=== PATIENT | female | born 1950 | race Caucasian/White ===

== ENCOUNTER 2018-01-15 20:35 | Emergency (ER) | payer OTHER, SELFPAY ==
[2018-01-15 20:42] VITALS: BP 133/82; PULSE 91; RESP 18; TEMP 37.3; O2SAT 97
--- NOTE | 2018-01-15 22:46 | DI.US.S_ITS ---
PROCEDURE: US PERIPH VENOUS LOW EXTREM RT INDICATIONS: RIGHT LOWER LEG PAIN TECHNIQUE: Real-time imaging, as well as color and pulse Doppler interrogation, were performed of the lower extremity deep veins from the inguinal ligament to the popliteal fossa. COMPARISON: None. FINDINGS: The deep veins are normally compressible, and free of intraluminal thrombus. Color and pulse Doppler demonstrate normal phasic intraluminal flow. There is normal augmentation response to distal compression maneuver. IMPRESSION: No DVT in the right lower extremity. Dictated by: Beverly Hankins M.D. on 01/16/2018 at 8:36 Approved by: Beverly Hankins M.D. on 01/16/2018 at 8:36
--- NOTE | 2018-01-15 23:50 | ED_ITS ---
HPI - Extremity Problem General Chief complaint: Extremity Problem,Nontraumatic Stated complaint: RIGHT LEG THINKS DEEP VEIN THROMBOSIS Time Seen by Provider: 01/15/18 22:06 History of Present Illness HPI Narrative: HPI 67-year-old female presents for evaluation of mild right anterior medial calf pain that is burning, has intermittent sharp radiating towards great toe complement, and appears to be waxing waning over several days. Patient reports that she spent last week physically active [place] the beach ( involved in some manner of community resource training). Patient denies trauma to her leg, falls, or further injuries. Patient notes normal sensation in her right foot. Patient denies immunocompromise, fevers, chills. Patient is concerned that she may have a DVT presented for further evaluation. ROS with no recent constitutional symptoms. Exam Gen: Pleasant, non-toxic appearing, resting comfortably HEENT: NC, AT, PEERL, EOMI. Resp: Clear to auscultation bilaterally. Unlabored respirations with a normal work of breathing. Card: Regular rate and rhythm. Extremities warm and well perfused. GI: Non-distended. : Deferred MSK/Skin: Right Lower Extremity: Hip with full functional range of motion. No tenderness, swelling, or warmth. Thigh visually normal, soft, and non-tender to palpation. Knee with full functional range of motion, no tenderness to palpation over the patella, fibular head, or joint line. No MCL or LCL tenderness to palpation, negative Sara and posterior drawer test. No swelling , ecchymosis or effusion. No tenderness to palpation on the quadriceps or patellar tendon, both tendons intact on knee extension. Calf without visible or palpable trauma, muscle compartments soft and non-tender to palpation. Weaver test with plantar flexion. No tenderness to palpation over the tibia or fibula. Ankle visually normal without ecchymosis inferior to the lateral malleolus. No tenderness over the posterior lateral malleolus, no tenderness over the posterior medial malleolus. Able to fully dorsiflex, plantarflex, carlyn, and invert the ankle with full functional range of motion . Foot visually normal without tenderness to palpation, specifically including the navicular bone and the base of the 5th metatarsal. Able flex and extend all toes. Muscle compartments of the foot are soft. Neurovascular 2+ DP and PT pulses. Sensation grossly intact to touch on the calf. Sensation intact to touch on all toes, first web space, the medial, lateral, plantar and dorsal surfaces of the foot. Gait - Patient able to take four steps with a non-antalgic gait. Neuro: AO x 3, no facial asymmetry, vision and hearing WNL. Heme/Lymph: Deferred Skin: Normal color with no visible lesions (other than noted above). Psych: Mood and affect appropriate. US DVT: No DVT or other abnormalities appreciated. Radiologist read pending. MDM Previous chart, nursing note, and vitals reviewed. A: 67-year-old female presents for evaluation of mild right anterior medial calf pain that is burning, has intermittent sharp radiating towards great toe complement, and appears to be waxing waning over several days. DDx & Evaluation: patient without evidence of CMS impairment, no evidence of cellulitis, deep space infection, clinically appreciable bony injury based on history and exam. Ultrasound without evidence of DVT. Suspect muscle strain. Patient instructed to use NSAIDs and follow up with PCP. Impression: right calf pain (please reference below for remainder of encounter information) Related Data Home Medications Medication Instructions Recorded Confirmed atorvastatin [Lipitor] 20 mg PO HS #0 09/26/17 hydrocodone-acetaminophen [[place]] 1 tab PO QDAY PRN #0 09/26/17 lithium carbonate 600 mg PO HS #0 09/26/17 omeprazole 20 mg PO BID #0 09/26/17 sumatriptan succinate [Imitrex] 100 mg PO PRN PRN #0 09/26/17 Allergies Allergy/AdvReac Type Severity Reaction Status Date / Time erythromycin base Allergy Severe anaphalaxic Unverified 12/07/17 12:47 [ERYTHROMYCIN BASE] Penicillins [PENICILLINS] Allergy Severe anaphalatic Unverified 12/07/17 12:47 most antibiotics Allergy Unknown Uncoded 12/07/17 12:47 PFSH Surgical History History of splenectomy History of tonsillectomy Status post hysterectomy Family History Father Bipolar affective disorder Stroke Mother Age: 94 Diverticular disease Social History Smoking Status: Never smoker Exam Initial Vital Signs Initial Vital Signs: Vital Signs Temperature 99.1 F 01/15/18 20:42 Pulse Rate 91 H 01/15/18 20:42 Respiratory Rate 18 01/15/18 20:42 Blood Pressure 133/82 H 01/15/18 20:42 Pulse Oximetry 97 01/15/18 20:42 Course Orders Ordered: ED Orders 01/15/18 22:46 periph venous low extrem rt Stat Vital Signs - 8 hr 01/15/18 20:42 Temperature 99.1 F Pulse Rate 91 H Respiratory Rate 18 Blood Pressure 133/82 H Pulse Oximetry 97 Discharge Plan Departure Prescriptions: No Action atorvastatin [Lipitor] 20 MG tablet 20 mg PO HS Qty: 0 RF: 0 lithium carbonate 300 MG tablet 600 mg PO HS Qty: 0 RF: 0 sumatriptan succinate [Imitrex] 100 MG tablet 100 mg PO PRN PRNQty: 0 RF: 0 hydrocodone-acetaminophen [[place]] 5 MG/325 MG tablet 1 tab PO QDAY PRNQty: 0 RF: 0 omeprazole 20 MG capsule,delayed release(DR/EC) 20 mg PO BID Qty: 0 RF: 0
[2018-01-16 00:25] VITALS: BP 130/80; PULSE 92; RESP 16; TEMP 37.1; O2SAT 98
== END 2018-01-16 00:20 | disposition home or self-care (01) ==
PROVIDERS: Emergency Provider Emergency Medicine
DX: M79.661 Pain in right lower leg (principal)
CPT/HCPCS: 93971; 99282; 99284

== ENCOUNTER → 2018-06-15 10:57 | Outpatient (CLI) | payer OTHER, SELFPAY ==
--- NOTE | 2018-06-15 | DI.MG.S_ITS ---
BILATERAL DIGITAL SCREENING MAMMOGRAM 3D/2D WITH CAD: 06/15/2018 CLINICAL: Routine screening. Family history of breast cancer. Comparison is made to exams dated: 12/21/2016 mammogram, 06/26/2015 mammogram, and 05/07/2014 [facility]ogram - [facility]. The tissue of both breasts is heterogeneously dense. This may lower the sensitivity of mammography. Current study was also evaluated with a Computer Aided Detection (CAD) system. No significant masses, calcifications, or other findings are seen in either breast. There has been no significant interval change. IMPRESSION: NEGATIVE There is no mammographic evidence of malignancy. A 1 year screening mammogram is recommended. This exam was interpreted at Station ID: [id number]. NOTE: For mammograms, a report in lay terms will be sent to the patient. Approximately 15% of breast malignancies will not be visualized mammographically. In the management of a palpable breast mass, a negative mammogram must not discourage biopsy of a clinically suspicious lesion. Electronically Signed By: Elysia rizo/dave:06/15/2018 12:17:31 letter sent: Normal Exam ACR BI-RADS Category 1: Negative 3341F
== END ==
PROVIDERS: Visit Provider Family Medicine
DX: Z12.31 Encounter for screening mammogram for malignant neoplasm of breast (principal); Z80.3 Family history of malignant neoplasm of breast
CPT/HCPCS: 77063; 77067

== ENCOUNTER → 2018-06-16 09:33 | Outpatient (CLI) | payer OTHER, SELFPAY ==
--- NOTE | 2018-06-16 09:35 | DI.RAD.S_ITS ---
PROCEDURE: XR WRIST LT MIN 3V INDICATIONS: Left arm pain TECHNIQUE: 4 views of the wrist were acquired. COMPARISON: [facility], CR, XR FOREARM LT 2V, 06/16/2018, 9:14. FINDINGS: Bones: No fractures or dislocations. No suspicious bony lesions. Scaphoid view: No trauma to the scaphoid is found. Soft tissues: No suspicious soft tissue calcifications. IMPRESSION: No wrist fracture found. Mild degenerative change. Please note that elbow plain films today have documented a definite nondisplaced radial head fracture. Dictated by: Murali Ribera M.D. on 06/16/2018 at 11:11 Approved by: Murali Ribera M.D. on 06/16/2018 at 11:12
--- NOTE | 2018-06-16 09:35 | DI.RAD.S_ITS ---
PROCEDURE: XR ELBOW LT MIN 3V INDICATIONS: Left arm pain TECHNIQUE: 3 views of the elbow were acquired. COMPARISON: None. FINDINGS: Bones: No dislocations. No suspicious bony lesions. There is a nondisplaced transverse fracture across the radial head seen on one view only. Soft tissues: Small elbow joint effusion. No suspicious soft tissue calcifications. IMPRESSION: Radial head nondisplaced fracture, crossing the articular surface, seen on one view only. Secondary small to moderate elbow joint effusion faintly seen on the lateral view.. Dictated by: Murali Ribera M.D. on 06/16/2018 at 11:09 Approved by: Murali Ribera M.D. on 06/16/2018 at 11:10
--- NOTE | 2018-06-16 09:35 | DI.RAD.S_ITS ---
PROCEDURE: XR FOREARM RT 2V INDICATIONS: Left arm pain TECHNIQUE: 2 views of the forearm were acquired. COMPARISON: [facility], CR, XR ELBOW LT MIN 3V, 06/16/2018, 9:14. FINDINGS: Bones: No fractures or dislocations can be seen by this study but the elbow plain films have documented a definite nondisplaced intra-articular radial head fracture with secondary joint effusion. No suspicious bony lesions. Soft tissues: No suspicious soft tissue calcifications or masses. There is a elbow joint effusion elevating the anterior and posterior fat pads to a mild degree. IMPRESSION: No fracture through the forearm into the wrist area, but the elbow plain films have documented a definite radial head fracture with secondary posttraumatic effusion at the elbow joint. Dictated by: Murali Ribera M.D. on 06/16/2018 at 11:10 Approved by: Murali Ribera M.D. on 06/16/2018 at 11:11
== END ==
PROVIDERS: PCP Family Medicine; Visit Provider Physician Assistant
DX: M79.602 Pain in left arm (principal)
CPT/HCPCS: 73080; 73090; 73110

== ENCOUNTER → 2018-07-27 08:54 | Outpatient (CLI) | payer OTHER, SELFPAY ==
[2018-07-27 09:43] LABS: Appearance Urine UA CLEAR; Bilirubin Urine UA NEGATIVE (NEGATIVE); Color Urine UA YELLOW; Glucose Urine UA NEGATIVE (Normal); Ketones Urine UA NEGATIVE (NEGATIVE); Leukocyte Esterase Urine UA 2+ (NEGATIVE); Nitrite Urine UA NEGATIVE (Negative); Occult Blood Urine UA NEGATIVE (Negative); Protein Urine UA NEGATIVE (Negative); Specific Gravity Urine UA 1.015 (1.000-1.035); Urobilinogen Urine UA 0.2 E.U./dL (0.2)
[2018-07-27 09:49] LABS: Bacteria Urine None Seen; RBC Urine None Seen (0-5/HPF)
[2018-07-27 09:56] LABS: Add Manual Diff / Slide Review NO; Basophils Percent Auto 0.8 % (0-2); Eosinophils Percent Auto 2.8 % (2-4); Hematocrit 42.1 % (36-46); Hemoglobin 14.5 g/dL (12.0-16.0); Lymphocytes Percent Auto 25.9 % (25-40); Mean Corpuscular HGB Conc 34.4 % (30-36); Mean Corpuscular Hemoglobin 33.3 PG (26-34); Mean Corpuscular Volume 96.8 fL (80-100); Monocytes Percent Auto 6.7 % (3-14); Neutrophils Absolute Auto 5400 /uL (3000-5900); Neutrophils Percent Auto 63.8 % (50-75); Platelet Count 370 X10^3/uL (150-400); Red Blood Cell Count 4.35 X10^6/uL (4.0-5.2); Red Cell Distribution Width 12.7 % (11.6-14.8); White Blood Cell Count 8.4 X10^3/uL (4.5-11.0)
[2018-07-27 10:05] LABS: Culture Indicated Urine Specimen Cultured; Squamous Epithelial Cell Urine 1-5 /HPF; WBC Urine 1-5/HPF (0-5/HPF)
[2018-07-27 10:12] LABS: Lithium 0.7 mmol/L (0.6-1.2)
[2018-07-27 10:45] LABS: Thyroid Stimulating Hormone 2.07 uIU/mL (0.47-4.68)
[2018-07-27 10:46] LABS: Alanine Aminotransferase 60 IU/L (9-52); Albumin 4.2 g/dL (3.5-5.0); Albumin Globulin Ratio 1.6 (1.0-2.8); Alkaline Phosphatase 86 U/L (38-126); Aspartate Aminotransferase 42 IU/L (14-36); Bilirubin Total 0.5 mg/dL (0.2-1.3); Blood Urea Nitrogen 15 mg/dL (7-17); Calcium 9.4 mg/dL (8.4-10.2); Carbon Dioxide 26 mmol/L (22-32); Chloride 106 mmol/L (98-107); Cholesterol 320 mg/dL (140-199); Estimated Glomerular Filt Rate > 60.0 mL/min (>60); Globulin 2.7 g/dL (1.7-4.1); Glucose 92 mg/dL (80-110); HDL Cholesterol 50 mg/dL (40-60); HEMOLYSIS < 15 (0-50); LDL Cholesterol Calculated 237 mg/dL (<100); Sodium 141 mmol/L (137-145); Total Protein 6.9 g/dL (6.3-8.2); Triglycerides 164 mg/dL (35-150)
== END ==
PROVIDERS: PCP Family Medicine; Visit Provider Family Medicine
DX: E78.5 Hyperlipidemia, unspecified (principal); F31.30 Bipolar disorder, current episode depressed, mild or moderate severity, unspecified; Z51.81 Encounter for therapeutic drug level monitoring
CPT/HCPCS: 36415; 80053; 80061; 80178; 81003; 81015; 84443; 85025; 87086

== ENCOUNTER → 2019-02-10 08:48 | Outpatient (CLI) | payer OTHER, SELFPAY ==
--- NOTE | 2019-02-10 08:51 | DI.RAD.S_ITS ---
PROCEDURE: XR HUMERUS RT 2V INDICATIONS: proximal humerous pain after side impact TECHNIQUE: 2 views of the humerus were acquired. COMPARISON: None. FINDINGS: Bones: No fractures or dislocations. No suspicious bony lesions. Soft tissues: No suspicious soft tissue calcifications. IMPRESSION: No acute fracture. No osseous lesion. If symptoms or clinical suspicion for pathology persists, repeat plain films, or advanced imaging (CT, bone scan, or MRI) may be helpful for further assessment. Dictated by: Jose Eden M.D. on 02/10/2019 at 8:04 Approved by: Jose Eden M.D. on 02/10/2019 at 8:05
== END ==
PROVIDERS: PCP Family Medicine; Visit Provider Physician Assistant
DX: M79.601 Pain in right arm (principal)
CPT/HCPCS: 73060

== ENCOUNTER → 2019-02-21 18:03 | Outpatient (CLI) | payer OTHER, SELFPAY ==
--- NOTE | 2019-02-21 18:06 | DI.MRI.S_ITS ---
PROCEDURE: MR SHOULDER RT WO CON INDICATIONS: Pain at tendon insertion site of right small bicep TECHNIQUE: Noncontrast oblique coronal T2 fast spin echo with fat saturation, oblique sagittal T1 spin echo and T2 fast spin echo with fat saturation, axial T1 spin echo and T2 fast spin echo with fat saturation through the shoulder. COMPARISON: [facility], RG, XR SHOULDER 3V RIGHT, 05/25/2016, 10:27. FINDINGS: Image quality: Diagnostic. Rotator cuff: There is moderate thickening and increased signal identified involving the supraspinatus and infraspinatus tendons. There likely is an area of low-grade partial-thickness tearing of the footprint of the anterior distal supraspinatus tendon. No full-thickness tears are appreciated. There is mild increased signal of the subscapularis tendon without significant tearing. The teres minor tendon is intact. There is no significant atrophy of the rotator cuff muscles. Bones and bursae: No acute fracture or dislocation is evident. No suspicious osseous lesions are identified. Moderate degenerative changes of the glenohumeral and acromioclavicular joints are present. There is a moderate amount of fluid contained within the subacromial subdeltoid bursa. Capsule and soft tissues: Evaluation of the labrum and glenohumeral ligaments is suboptimal without intra-articular contrast. Chronic appearing tearing along the posterior labrum appears to be present that is more pronounced superiorly. No detached labral fragment or large paralabral cysts are appreciated. The long head of the biceps tendon is normally positioned within the bicipital groove. There is mild increased signal involving the intra-articular portion of this tendon. No acute injuries are suspected involving the glenohumeral ligaments. IMPRESSION: 1. Low-grade partial-thickness tearing and moderate tendinopathy of the supraspinatus tendon. 2. Moderate infraspinatus and mild subscapularis tendinopathy without significant tearing. 3. Small to moderate size posterior labral tear is likely degenerative. 4. Moderate degenerative changes of the right shoulder joint. 5. Fluid within the subacromial subdeltoid bursa and may represent bursitis. 6. Tendinopathy of the long head of the biceps tendon without tearing. Dictated by: Edgar Rojas M.D. on 02/22/2019 at 13:41 Approved by: Edgar Rojas M.D. on 02/22/2019 at 13:47
== END ==
PROVIDERS: Family Provider Family Medicine; PCP Family Medicine; Visit Provider Registered Nurse
DX: M25.511 Pain in right shoulder (principal); M75.111 Incomplete rotator cuff tear or rupture of right shoulder, not specified as traumatic; S43.491A Other sprain of right shoulder joint, initial encounter; M67.813 Other specified disorders of tendon, right shoulder
CPT/HCPCS: 73221

== ENCOUNTER → 2019-03-16 07:57 | Outpatient (CLI) | payer OTHER, SELFPAY ==
[2019-03-16 08:56] LABS: Hematocrit 44.1 % (36-46); Hemoglobin 14.9 g/dL (12.0-16.0); Mean Corpuscular HGB Conc 33.9 % (30-36); Mean Corpuscular Volume 97.3 fL (80-100); Platelet Count 364 X10^3/uL (150-400); Red Blood Cell Count 4.53 X10^6/uL (4.0-5.2); Red Cell Distribution Width 13.2 % (11.6-14.8); White Blood Cell Count 13.1 X10^3/uL (4.5-11.0)
[2019-03-16 09:08] LABS: Neutrophils Absolute Manual 7991 /uL (3000-5900); RBC Morphology Normal Morphology; Total Cells Counted 100
[2019-03-16 09:16] LABS: Lithium 0.5 mmol/L (0.6-1.2)
[2019-03-16 09:19] LABS: Alanine Aminotransferase 45 IU/L (9-52); Albumin 4.5 g/dL (3.5-5.0); Albumin Globulin Ratio 1.7 (1.0-2.8); Alkaline Phosphatase 86 U/L (38-126); Aspartate Aminotransferase 25 IU/L (14-36); BUN Creatinine Ratio 22.9 (6-22); Bilirubin Total 0.9 mg/dL (0.2-1.3); Blood Urea Nitrogen 16 mg/dL (7-17); Calcium 10.5 mg/dL (8.4-10.2); Carbon Dioxide 26 mmol/L (22-32); Chloride 104 mmol/L (98-107); Estimated Glomerular Filt Rate > 60.0 mL/min (>60); Globulin 2.6 g/dL (1.7-4.1); Glucose 93 mg/dL (80-110); HEMOLYSIS < 15 (0-50); Potassium 4.4 mmol/L (3.4-5.1); Sodium 138 mmol/L (137-145); Total Protein 7.1 g/dL (6.3-8.2)
== END ==
PROVIDERS: PCP Family Medicine; Visit Provider Family Medicine
DX: F31.30 Bipolar disorder, current episode depressed, mild or moderate severity, unspecified (principal); Z51.81 Encounter for therapeutic drug level monitoring
CPT/HCPCS: 36415; 80053; 80178; 85025

== ENCOUNTER → 2019-06-12 13:48 | Outpatient (CLI) | payer OTHER, SELFPAY | PROVIDERS: PCP Family Medicine; Visit Provider Family Medicine | DX: M85.852 Other specified disorders of bone density and structure, left thigh (principal); Z90.722 Acquired absence of ovaries, bilateral; Z78.0 Asymptomatic menopausal state | CPT/HCPCS: 77080 ==

== ENCOUNTER → 2019-07-30 12:02 | Outpatient (CLI) | payer OTHER, SELFPAY ==
--- NOTE | 2019-07-30 12:03 | DI.MG.S_ITS ---
BILATERAL DIGITAL SCREENING MAMMOGRAM 3D/2D WITH CAD: 07/30/2019 CLINICAL: Routine screening. Family history of breast cancer. Comparison is made to exams dated: 12/21/2016 mammogram, 06/26/2015 mammogram - [facility], 06/15/2018 mammogram - [facility], and 05/07/2014 mammogram - [facility]. The tissue of both breasts is heterogeneously dense. This may lower the sensitivity of mammography. Current study was also evaluated with a Computer Aided Detection (CAD) system. There are benign diffuse calcifications in both breasts. No significant masses, calcifications, or other findings are seen in either breast. There has been no significant interval change. IMPRESSION: There is no mammographic evidence of malignancy. A 1 year screening mammogram is recommended. This exam was interpreted at Station ID: [id number]. NOTE: For mammograms, a report in lay terms will be sent to the patient. Approximately 15% of breast malignancies will not be visualized mammographically. In the management of a palpable breast mass, a negative mammogram must not discourage biopsy of a clinically suspicious lesion. Electronically Signed By: Ilan pino/dave:07/30/2019 17:55:44 letter sent: Normal Exam ACR BI-RADS Category 2: Benign Finding(s) 3342F
== END ==
PROVIDERS: PCP Family Medicine; Visit Provider Family Medicine
DX: Z12.31 Encounter for screening mammogram for malignant neoplasm of breast (principal); Z80.3 Family history of malignant neoplasm of breast
CPT/HCPCS: 77063; 77067

== ENCOUNTER → 2020-06-24 07:29 | Outpatient (CLI) | payer OTHER, SELFPAY ==
[2020-06-24 08:20] LABS: Add Manual Diff / Slide Review NO; Basophils Absolute Auto 100 /uL (0-100); Basophils Percent Auto 0.7 % (0-2); Eosinophils Absolute Auto 100 /uL (0-450); Eosinophils Percent Auto 0.9 % (2-4); Hematocrit 41.5 % (36-46); Lymphocytes Absolute Auto 2800 /uL (1100-4500); Lymphocytes Percent Auto 34.4 % (25-40); Mean Corpuscular HGB Conc 33.9 % (30-36); Mean Corpuscular Hemoglobin 33.5 PG (26-34); Mean Corpuscular Volume 98.9 fL (80-100); Monocytes Absolute Auto 600 /uL (0-900); Monocytes Percent Auto 7.5 % (3-14); Neutrophils Absolute Auto 4600 /uL (1500-7000); Neutrophils Percent Auto 56.5 % (50-75); Platelet Count 400 X10^3/uL (150-400); Red Blood Cell Count 4.19 X10^6/uL (4.0-5.2); Red Cell Distribution Width 12.3 % (11.6-14.8); White Blood Cell Count 8.2 X10^3/uL (4.5-11.0)
[2020-06-24 08:31] LABS: Hemoglobin A1C% w Est Avg Glu 5.6 % (4.0-6.0)
[2020-06-24 08:32] LABS: Alanine Aminotransferase 22 IU/L (<35); Albumin 4.2 g/dL (3.5-5.0); Albumin Globulin Ratio 1.3 (1.0-2.8); Alkaline Phosphatase 102 U/L (38-126); Aspartate Aminotransferase 23 IU/L (14-36); BUN Creatinine Ratio 25.8 (6-22); Bilirubin Total 0.5 mg/dL (0.2-1.3); Blood Urea Nitrogen 16 mg/dL (7-17); Calcium 10.2 mg/dL (8.4-10.2); Carbon Dioxide 29 mmol/L (22-32); Chloride 108 mmol/L (98-107); Cholesterol 253 mg/dL (140-199); Estimated Glomerular Filt Rate > 60.0 mL/min (>60); Globulin 3.2 g/dL (1.7-4.1); Glucose 109 mg/dL (80-110); HDL Cholesterol 41 mg/dL (40-60); HEMOLYSIS < 15 (0-50); LDL Cholesterol Calculated 186 mg/dL (<100); Potassium 4.7 mmol/L (3.4-5.1); Sodium 140 mmol/L (137-145); Total Protein 7.4 g/dL (6.3-8.2); Triglycerides 129 mg/dL (35-150)
[2020-06-24 08:57] LABS: Lithium < 0.2 mmol/L (0.6-1.2)
[2020-06-24 09:28] LABS: TSH w/ Reflex to FT4 0.67 uIU/mL (0.47-4.68)
== END ==
PROVIDERS: PCP Family Medicine; Referring Provider Family Medicine; Visit Provider Family Medicine
DX: Z00.00 Encounter for general adult medical examination without abnormal findings (principal); B35.1 Tinea unguium; E78.5 Hyperlipidemia, unspecified; B85.1 Pediculosis due to Pediculus humanus corporis
CPT/HCPCS: 36415; 80053; 80061; 80178; 83036; 84443; 85025

== ENCOUNTER 2020-11-22 07:44 | Emergency (ER) | payer OTHER, SELFPAY ==
[2020-11-22 08:00] VITALS: BP 163/92; PULSE 84; RESP 18; TEMP 36.9; O2SAT 97; BMI 25.4
--- NOTE | 2020-11-22 08:10 | DI.RAD.S_ITS ---
PROCEDURE: XR CHEST 1V INDICATIONS: cough TECHNIQUE: One view of the chest was acquired. COMPARISON: None. FINDINGS: Surgical changes and devices: None. Lungs and pleura: Lungs are clear. No pleural effusions or pneumothorax. Mediastinum: Mediastinal contours appear normal. Heart size is normal. Bones and chest wall: No suspicious bony lesions. Overlying soft tissues appear unremarkable. IMPRESSION: Portable chest within normal limits. Dictated by: Sarkis Rodriguez M.D. on 11/22/2020 at 8:06 Approved by: Sarkis Rodriguez M.D. on 11/22/2020 at 8:06
[2020-11-22 08:20] LABS: COVID19 -Nasal RAPID Negative (Negative)
--- NOTE | 2020-11-22 08:26 | ED_ITS ---
HPI - General Adult General Chief complaint: Shortness of Breath/Dyspnea Stated complaint: bronchitis Time Seen by Provider: 11/22/20 08:10 Source: patient and other (sent from walk-in clinic) Mode of arrival: Family Vehicle Limitations: no limitations History of Present Illness HPI narrative: This is a 70-year-old female who is sent to the emergency department from the walk-in clinic. Patient was seen there approximately a week ago. She has had about 2 weeks of decreased energy, cough which has been nonproductive and elevated temperature. Patient states her normal is 97 and she has been running 99 for her T-max. Patient has not had sweats or diaphoresis. She has had some mild nasal congestion, she denies any significant sinus pressure, ear pain or postnasal drip. Patient states that she recently dev eloped a little chest discomfort in the last 12 hours which has been constant. She denies any exacerbating or specific alleviating factors. She denies any acute shortness of breath. She denies any nausea, no vomiting. No other GI or urinary symptoms. She denies any swelling in her extremities. Patient states that she was seen at the walk-in clinic she was prescribed Levaquin which has not been helpful and she has not improved. She return today for repeat evaluation and was told to come to the emergency department by the ORDER PICKER/ASSEMBLER. Patient does take a daily statin as well as lithium for bipolar. She has history of splenectomy secondary to trauma. She denies tobacco, alcohol or illicit drug use. Patient did complete her COVID immunizations in September. She states she also had antigen test the day before her 2nd vaccine which was negative. Related Data Home Medications Medication Instructions Recorded Confirmed fluticasone propionate 50 1 spray NASAL DAILY 07/04/18 11/18/20 mcg/actuation nasal spray,suspension Previous Rx's Medication Instructions Recorded omeprazole 20 mg capsule,delayed 20 mg PO BID #60 cap 10/11/18 release adjuvant AS01B (PF)vial 1 of 2 0.5 ml IM ONCE #0.5 ml 03/20/19 sumatriptan succinate 100 mg tablet 100 mg PO PRN PRN #9 tab 10/04/19 hydrocodone 5 mg-acetaminophen 325 1 tab PO QDAY PRN #20 tab 11/07/19 mg tablet lithium carbonate 300 mg tablet 600 mg PO HS #180 tab 07/10/20 atorvastatin 40 mg tablet 40 mg PO BEDTIME #90 tab 09/19/20 levofloxacin 750 mg tablet 750 mg PO DAILY 5 Days #5 tab 11/18/20 prednisone 20 mg PO DAILY #5 tab 11/22/20 Allergies Allergy/AdvReac Type Severity Reaction Status Date / Time erythromycin base Allergy Severe anaphalaxic Verified 11/22/20 08:22 [ERYTHROMYCIN BASE] Penicillins [PENICILLINS] Allergy Severe anaphalatic Verified 11/22/20 08:22 latex Allergy Intermediate rash Verified 11/22/20 08:22 most antibiotics Allergy Unknown Uncoded 11/22/20 08:22 Review of Systems Review of Systems ROS Unobtainable: All systems reviewed & are unremarkable except as noted in HPI and below Patient History Medical History Bipolar depression Bipolar disorder (1991) Bipolar disorder, in full remission, most recent episode manic Bronchitis Chickenpox (1951) Chronic back pain (2013) Encounter for Medicare annual wellness exam Fecal incontinence (2014) GERD (gastroesophageal reflux disease) Herpes (1971) History of colon polyps Hyperlipemia Measles (1952) Migraine aura without headache Migraines (1989) Mumps (1953) Peptic ulcer disease (2015) Rosacea (1989) Shoulder pain (2014) Surgical History History of carpal tunnel release (2009) History of splenectomy (1974) History of tonsillectomy (1967) Hx of hernia repair (1977) Status post hysterectomy (2004) Family History Father Bipolar affective disorder Stroke Mother Age: 97 Diverticular disease Grandfather Cancer Grandmother No problems noted. Grandfather Alcoholism Grandmother No problems noted. Sister Non Hodgkin's lymphoma Social History Smoking Status: Never smoker Smoking Status: Never smoker alcohol intake frequency: 0-2 drinks per day Substance Use Type: does not use Exam Narrative Exam Narrative: GEN: well nourished, well appearing female, alert and oriented x 3, patient appears to be in mild distress. HEENT: Atraumatic, pupils are equal round reactive to light, extraocular move ments are intact, nares are clear, TMs are clear with no fluid, there is no conjunctival pallor. Throat has cobblestoning with mild postnasal drip. Without any exudates, no erythema, tonsillar enlargement or uvular deviation HEART: Regular rate and rhythm without murmur, clicks, rubs. LUNGS:Lungs clear to auscultation, no wheezes, rales, crackles, chest moves symmetrically, no tachypnea accessory muscle use. ABD:bowel sounds normal, soft, non-tender, no guarding, rebound, rigidity, no masses noted, no hepatosplenomegaly :No CVA tenderness. MSCL: Full range of motion, normal gait NEURO:CN 2-12 intact, sensation normal SKIN: No rash, erythema or skin changes. Initial Vital Signs Initial Vital Signs: Vital Signs Temperature 98.4 F 11/22/20 08:00 Pulse Rate 84 11/22/20 08:00 Respiratory Rate 18 11/22/20 08:00 Blood Pressure 163/92 H 11/22/20 08:00 Pulse Oximetry 97 11/22/20 08:00 Course Orders Ordered: ED Orders 11/22/20 08:00 COVID19 -Nasal swab/Pre-Proc Stat 11/22/20 08:10 CXR [XR chest 1V] Stat 11/22/20 08:25 EKG-12 Lead Stat Vital Signs Vital signs: Vital Signs - 8 hr 11/22/20 08:00 Temperature 98.4 F Pulse Rate 84 Respiratory Rate 18 Blood Pressure 163/92 H Pulse Oximetry 97 Medical Decision Making Lab Data Lab results reviewed: Yes I reviewed the patient's lab results. Labs: Lab Results 11/22/20 Range/Units 08:00 SARS-CoV-2 (PCR) Negative (Negative) Imaging Data Chest x-ray: Radiologist's Impression: [address] [id number] ReportSigned Patient: Shayy Vaughn GMR#: [id number]: [id number]:[id number]/Sex: 70 / FDate of Service: 11/22/20Loc: EDAccession Number: [id number] Procedure: XR chest 1V Ordering Provider: Carmel Davis D.O. PROCEDURE: XR CHEST 1V INDICATIONS: cough TECHNIQUE: One view of the chest was acquired. COMPARISON: None. FINDINGS: Surgical changes and devices: None. Lungs and pleura: Lungs are clear. No pleural effusions or pneumothorax. Mediastinum: Mediastinal contours appear normal. Heart size is normal. Bones and chest wall: No suspicious bony lesions. Overlying soft tissues appear unremarkable. IMPRESSION: Portable chest within normal limits. Dictated by: Sarkis Rodriguez M.D. on 11/22/2020 at 8:06 Approved by: Sarkis Rodriguez M.D. on 11/22/2020 at 8:06 ECG Data Attestation: I personally reviewed and interpreted this ECG as follows: Interpretation: Sinus rhythm rate of 77 P are 164 QRS of 78 QTC of 407. No acute ST changes appreciated MDM Narrative Medical decision making narrative: This is a 70-year-old female comes to the emergency department with complaint of cough and chest discomfort it has progressed over the last 2 weeks. She was started on oral antibiotics for bronchitis which she has completed without improvement. Discussed with patient she does appear to have some postnasal drip. She has tried a little bit and histamine. We discussed trying a short course of steroids. We did discuss other potential causes although my suspicion for cardiac is much lower with her recent symptoms. We did discuss return precautions and need for follow-up if she is not improving. Plan for short course of steroids with her history of bipolar we did discuss this could exacerbate or worsen any cristal and that she should stop immediately if having any symptoms. Patient expressed understanding and plan for follow-up this week with her primary care. Discharge Plan Departure Patient Disposition: Home Clinical Impression: Cough Instructions: Cough Activity Restrictions/Additional Instructions: Follow up with your physician in the next 2-3 days for recheck if not resolved. I would recommend taking a short course of steroids to see if this improves your symptoms. This medication can make you feel amped up or even exacerbate a manic episode so if you start to have these symptoms stop the steroids immediately. Prescription to [facility]. Please return to the ER if you have temperatures greater 100.4 F, worsening chest pain shortness of breath, lightheadedness or passing out, persistent vomiting, new swelling in her extremities or other new or concerning symptoms. Prescriptions: New prednisone 20 mg tablet 20 mg PO DAILY Qty: 5 RF: 0 No Action levofloxacin 750 mg tablet 750 mg PO DAILY 5 Days Qty: 5 RF: 0 fluticasone propionate [Flonase Allergy Relief] 50 mcg/actuation spray,suspension 1 spray NASAL DAILY RF: 0 omeprazole 20 mg capsule,delayed release(DR/EC) 20 mg PO BID Qty: 60 RF: 3 sumatriptan succinate [Imitrex] 100 mg tablet 100 mg PO PRN PRN (Reason: migraine headache) Qty: 9 RF: 2 lithium carbonate 300 mg tablet 600 mg PO HS Qty: 180 RF: 3 atorvastatin 40 mg tablet 40 mg PO BEDTIME Qty: 90 RF: 2 Shingrix Adjuvant Component-PF suspension 0.5 ml IM ONCE Qty: 0.5 RF: 0 hydrocodone-acetaminophen [[place]] 5-325 mg tablet 1 tab PO QDAY PRN (Reason: migraine headache) Qty: 20 RF: 0 Referrals: Angel Ugalde DO [Primary Care Provider] -
[2020-11-22 10:12] VITALS: BP 161/82; PULSE 81; RESP 13; TEMP 37.1; O2SAT 97
== END 2020-11-22 10:14 | disposition home or self-care (01) ==
PROVIDERS: Emergency Provider Emergency Medicine; PCP Family Medicine
DX: R05 Cough (principal); R07.89 Other chest pain; Z20.822 Contact with and (suspected) exposure to COVID-19
CPT/HCPCS: 71045; 87635; 93005; 99282; 99283; C9803

== ENCOUNTER → 2021-01-09 14:04 | Outpatient (CLI) | payer OTHER, SELFPAY ==
--- NOTE | 2021-01-09 14:07 | DI.RAD.S_ITS ---
PROCEDURE: XR HIP W PEL IF DONE LT 2V INDICATIONS: left hip pain TECHNIQUE: AP pelvis with lateral view(s) of the left hip(s). COMPARISON: None. FINDINGS: Bones: No fractures or dislocations. Pelvic ring appears intact. No suspicious bony lesions. Soft tissues: The visualized bowel gas pattern is normal. No suspicious soft tissue calcifications. IMPRESSION: No source of asymmetric left-sided hip pain is found. Dictated by: Murali Ribera M.D. on 01/09/2021 at 15:25 Approved by: Murali Ribera M.D. on 01/09/2021 at 15:25
[2021-01-09 16:48] LABS: Lithium 0.5 mmol/L (0.6-1.2)
== END ==
PROVIDERS: PCP Family Medicine; Referring Provider Psychiatry & Neurology Psychiatry; Visit Provider Psychiatry & Neurology Psychiatry
DX: M25.552 Pain in left hip (principal); F31.74 Bipolar disorder, in full remission, most recent episode manic
CPT/HCPCS: 36415; 73502; 80178

== ENCOUNTER 2021-02-11 14:55 | Outpatient (RCR) | payer OTHER, SELFPAY ==
--- NOTE | 2021-02-11 16:46 | PT.OIE ---
Current Diagnoses Pain in left hip (02/11/21) Past Medical History (Last Updated 01/13/21 @ 11:49 by Angel Ugalde DO) Bipolar depression Bipolar disorder (1991) Bipolar disorder, in full remission, most recent episode manic Bronchitis Chickenpox (1951) Chronic back pain (2013) Encounter for Medicare annual wellness exam Fecal incontinence (2014) GERD (gastroesophageal reflux disease) Herpes (1971) Hip pain, left History of carpal tunnel release (2009) History of colon polyps Hx of hernia repair (1977) Hyperlipemia Measles (1952) Migraine aura without headache Migraines (1989) Mumps (1953) Peptic ulcer disease (2015) Rosacea (1989) Shoulder pain (2014) Past Surgical History (Last Reviewed 11/22/20 @ 08:29 by Carmel Davis DO) History of carpal tunnel release (2009) History of splenectomy (1974) History of tonsillectomy (1967) Hx of hernia repair (1977) Status post hysterectomy (2004) Visit Care Team Role Provider Type Angel Ugalde DO Attending Provider Physician Primary Care Provider Referring Provider Specialty: [facility] Address: [address] [place] [address] Email: [email or web address] Physical Therapy Initial Evaluation PT-OP-A Visit Information Start: 02/11/21 16:10 Freq: Status: Active Protocol: Document 02/11/21 19:00 (Rec: 02/12/21 13:25 [email or web address]) Out-Patient Physical Therapy Visit Information Visit Information Visit Type Initial Evaluation Visit Start Time 15:15 Visit Stop Time 16:00 Total Visit Minutes 45 Visit Number 09/12 Number of SALES AND MARKETING INTERN Visits 0 Evaluation Information Evaluation Date 02/11/21 Precautions Precautions latex allergy PT-OP-B Current Condition Start: 02/11/21 16:10 Freq: Status: Active Protocol: Document 02/11/21 19:00 HH (Rec: 02/12/21 13:25 [email or web address]) Current Condition History of Current Condition Onset Date 8 months ago Current Complaints L hip pain after a fall, difficulty during sleep History of Current Condition Shayy is a 70 yo active female here for her ongoing L SIJ pain after a fall from 8 months ago. She fell on her L lower back after her hammock broken off from the tree. She stated she was hurting badly for the first few weeks with difficulty mobilizing. Sleeping hurts the worse since she cant sleep on her L side and has to take Advil and Tylenol to help. Denies tingling/ numbness. Her L leg did give out on her a few times. However, her mobility has been progressively getting better but pain 7/10 still persists. She normally likes to walk 2-3 walks a day on uneven surface. She carries wood/ water / groceries often since she lives [facility] by herself. Prior Treatments and Tests 01/09/21 X-ray at L hip IMPRESSION: No source of asymmetric left-sided hip pain is found. Treatment Goals Patient/Caregiver Goals 1. to be able to sleep on her L side again 2. to be pain free with L hip/ low back PT-OP-C Subjective Start: 02/11/21 16:10 Freq: Status: Active Protocol: Document 02/11/21 19:00 HH (Rec: 02/12/21 13:25 [email or web address]) Patient Questionnaires Lower Extremity Functional Scale LEFS Score 36 LEFS Impairment 40 to 59% Impaired (Score 32- 47) OP-PT Pain Assessment Location L hip Pain Location Details L SIJ region Intensity 7 Description Aching,Dull Frequency Frequent Pain Aggravating Factors Position,ADL's,Activity Pain Alleviating Factors Inactivity PT-OP-D Balance Start: 02/11/21 16:10 Freq: Status: Active Protocol: Document 02/11/21 19:00 HH (Rec: 02/12/21 13:25 [email or web address]) Balance Tests Single Limb Standing Single Limb- Right 27 Single Limb- Left 7 (pain noted at L SIJ) PT-OP-F Manual Assessment Start: 02/11/21 16:10 Freq: Status: Active Protocol: Document 02/11/21 19:00 HH (Rec: 02/12/21 13:25 [email or web address]) Manual Assessments Soft Tissue Assessment Soft Tissue Mobility Assessment painful to pressure at L SIJ region PT-OP-H Neuro Start: 02/11/21 16:10 Freq: Status: Active Protocol: Document 02/11/21 19:00 HH (Rec: 02/12/21 13:25 [email or web address]) Sensation Evaluation Gross Sensation Gross Sensation WNL Deep Tendon Reflex & Clonus Assessment Deep Tendon Reflex Bilateral Achilles Deep Tendon Reflex 2+ Normal Bilateral Patellar Deep Tendon Reflex 2+ Normal PT-OP-K Range of Motion Start: 02/11/21 16:10 Freq: Status: Active Protocol: Document 02/11/21 19:00 (Rec: 02/12/21 13:25 [email or web address]) Lumbar Spine Range of Motion Lumbar Spine Active Degrees Comments toe touch test= hands on floor , no discomfort SB to R= stretch at L lumbar region SB to L= painful at L SIJ extension = WFL Hip Goniometric Range of Motion Hip Right Active Comments WFL, no increase in discomfort Left Active Comments WFL, no increase in discomfort pain at L SIJ with active hip extension PT-OP-L Special Tests Start: 02/11/21 16:10 Freq: Status: Active Protocol: Document 02/11/21 19:00 HH (Rec: 02/12/21 13:25 [email or web address]) Special Tests Lumbar Spine Special Tests Prone Instability Test Comments pain at LSIJ with active hip extension Slump Test Results -ve B Straight Leg Raise Test Results -ve B PT-OP-M Strength Start: 02/11/21 16:10 Freq: Status: Active Protocol: Document 02/11/21 19:00 (Rec: 02/12/21 13:25 [email or web address]) Hip Strength Hip Manual Muscle Testing Right Flexion (L2) 5 Normal Extension (S1) 5 Normal Abduction 5 Normal Adduction 5 Normal Left Flexion (L2) 5 Normal Extension (S1) 4- Good- Abduction 5 Normal Adduction 5 Normal Comments pain at LSIJ with active hip extension Knee Strength Knee Manual Muscle Testing Right Flexion (S2) 5 Normal Extension (L3) 5 Normal Left Flexion (S2) 5 Normal Extension (L3) 5 Normal Ankle/Foot Strength Ankle and Foot Manual Muscle Testing Right Dorsiflexion (L4) 5 Normal Plantarflexion (S1) 5 Normal Left Dorsiflexion (L4) 5 Normal Plantarflexion (S1) 5 Normal PT-OP-Q Treatments Start: 02/11/21 16:10 Freq: Status: Active Protocol: Document 02/11/21 19:00 (Rec: 02/12/21 13:25 [email or web address]) Therapeutic Exercises Supine Exercises bridging Side bilateral Reps/Minutes 5 sec hold at top x 5 Comments for HEP Sidelying Exercises clamshell Side bilateral Reps/Minutes 8x2 Comments for HEP open book Reps/Minutes 8 x2 Comments for HEP Standing Exercises monster walk Side bilateral Equipment Used band at knees Reps/Minutes 10 ft x 2 Comments cues on neutral spine PT-OP-T Assessment and Plan Start: 02/11/21 16:10 Freq: Status: Active Protocol: Document 02/11/21 19:00 (Rec: 02/12/21 13:25 [email or web address]) Physical Therapy Assessment Rehab Potential Rehabilitation Potential Excellent Evaluation Complexity Number of Personal Factors/Comorbidities 1-2 Number of Body Systems Impaired 1-2 Clinical Presentation at Evaluation Stable Impairments Impairments Activity Tolerance,Balance, Functional Activities, Functional Mobility,Gait,Pain, Posture,ROM,Soft Tissue Mobility,Strength,Transfers Goals activity tolerance Impairment pt has pain in WB position Short Term Goal (STG) pt will be able to complete her daily walk without pain more than 3/10 STG Duration 4 weeks Pony Cylinder Press Operator Goal (LTG) pt will be able to tolerate carrying groceries/ wood/ water without increase in discomfort LTG Duration 8 weeks LEFS Impairment pt scores 36 on LEFS Short Term Goal (STG) pt will score > 50 on LEFS to show improved overall mobility and strength STG Duration 4 weeks Pony Cylinder Press Operator Goal (LTG) pt will score > 60 on LEFS to show improved overall mobility and strength LTG Duration 8 weeks sleep Impairment pt has difficulty sleeping on her L side Short Term Goal (STG) pt will have less L hip /SIJ pain <5/10 so she can tolerate sleeping on her L side > 3 days a week STG Duration 4 weeks Long-Term Goal (LTG) pt will have no L hip /SIJ pain so she can tolerate sleeping on her L side for the entire week LTG Duration 8 weeks Assessment Summary Assessment Shayy is a 70 yo active female here for her L SIJ/hip pain after a fall 8 months ago. Upon assessment, pt presents signs of L SIJ strain/ instability who has pain with active hip extension and prolonged WB. Her ROM/ strength are WFL but single leg balance on L is significantly affected. Pt will benefit from skilled therapy to improve her L SIJ stability by focusing on core stabilization and hip strengthening, which allows her to fully return to her daily activtiies without discomfort. Physical Therapy Plan Frequency and Duration Frequency of Treatment 1x/Week Duration of Treatment 8 weeks Plan of Care Start Date 02/11/21 Plan of Care End Date 04/13/21 Therapeutic Interventions Therapeutic Interventions Aquatic Therapy,Balance Training,Gait Training,Home Exercise Program,Joint Mobilizations,Neuromuscular Re -education,Patient/Caregiver Education,Self-Care/Home Management,Soft Tissue Mobilization,Taping, Therapeutic Activities, Therapeutic Exercises Modalities Cold Pack/Ice Massage,Electric Stimulation,Hot Packs, Infrared Therapy,Traction- Mechanical,Ultrasound Next Visit Focus/Plan Next Note Type Treatment Note Next Visit Plan review HEP core stabilization hip strengthening, hip abd, extension in WB position SL balance activities.
--- NOTE | 2021-02-11 17:00 | PT.OPPOC ---
Physical, Occupational & Speech Therapy At [facility] Current Diagnoses Pain in left hip (02/11/21) Visit Care Team Role Provider Type Angel Ugalde DO Attending Provider Physician Primary Care Provider Referring Provider Specialty: Family Practice Address: [address] [place] [address], [address] Email: [email or web address] Plan Of Care PT-OP-T Assessment and Plan Start: 02/11/21 16:10 Freq: Status: Active Protocol: Document 02/11/21 19:00 HH (Rec: 02/12/21 13:25 HH [email or web address]) Physical Therapy Assessment Rehab Potential Rehabilitation Potential Excellent Evaluation Complexity Number of Personal Factors/Comorbidities 1-2 Number of Body Systems Impaired 1-2 Clinical Presentation at Evaluation Stable Impairments Impairments Activity Tolerance,Balance, Functional Activities, Functional Mobility,Gait,Pain, Posture,ROM,Soft Tissue Mobility,Strength,Transfers Goals activity tolerance Impairment pt has pain in WB position Short Term Goal (STG) pt will be able to complete her daily walk without pain more than 3/10 STG Duration 4 weeks [facility] Goal (LTG) pt will be able to tolerate carrying groceries/ wood/ water without increase in discomfort LTG Duration 8 weeks LEFS Impairment pt scores 36 on LEFS Short Term Goal (STG) pt will score > 50 on LEFS to show improved overall mobility and strength STG Duration 4 weeks Senior Patient Account Representative Goal (LTG) pt will score > 60 on LEFS to show improved overall mobility and strength LTG Duration 8 weeks sleep Impairment pt has difficulty sleeping on her L side Short Term Goal (STG) pt will have less L hip /SIJ pain <5/10 so she can tolerate sleeping on her L side > 3 days a week STG Duration 4 weeks Senior Patient Account Representative Goal (LTG) pt will have no L hip /SIJ pain so she can tolerate sleeping on her L side for the entire week LTG Duration 8 weeks Assessment Summary Assessment Shayy is a 70 yo active female here for her L SIJ/hip pain after a fall 8 months ago. Upon assessment, pt presents signs of L SIJ strain/ instability who has pain with active hip extension and prolonged WB. Her ROM/ strength are WFL but single leg balance on L is significantly affected. Pt will benefit from skilled therapy to improve her L SIJ stability by focusing on core stabilization and hip strengthening, which allows her to fully return to her daily activtiies without discomfort. Physical Therapy Plan Frequency and Duration Frequency of Treatment 1x/Week Duration of Treatment 8 weeks Plan of Care Start Date 02/11/21 Plan of Care End Date 04/13/21 Therapeutic Interventions Therapeutic Interventions Aquatic Therapy,Balance Training,Gait Training,Home Exercise Program,Joint Mobilizations,Neuromuscular Re -education,Patient/Caregiver Education,Self-Care/Home Management,Soft Tissue Mobilization,Taping, Therapeutic Activities, Therapeutic Exercises Modalities Cold Pack/Ice Massage,Electric Stimulation,Hot Packs, Infrared Therapy,Traction- Mechanical,Ultrasound Next Visit Focus/Plan Next Note Type Treatment Note Next Visit Plan review HEP core stabilization hip strengthening, hip abd, extension in WB position SL balance activities. Plan of Care Dates Plan of Care Start Date 02/11/21 Plan of Care End Date 04/13/21 Electronically Signed by: Samia Landin PT 02/12/21 [id number] Please Sign and Return: I have reviewed this Plan of Care and certify that the skilled therapy services above are required to meet the patient?s needs. Physician Signature Date Printed Name and Credentials Clinical Instructor Signature Printed Name and Credentials
--- NOTE | 2021-02-11 17:00 | PT.OTN ---
Current Diagnoses Pain in left hip (02/11/21) Physical Therapy Treatment Note PT-OP-A Visit Information Start: 02/11/21 16:10 Freq: Status: Active Protocol: Document 02/11/21 19:00 (Rec: 02/12/21 13:25 [email or web address]) Out-Patient Physical Therapy Visit Information Visit Information Visit Type Initial Evaluation Visit Start Time 15:15 Visit Stop Time 16:00 Total Visit Minutes 45 Visit Number 09/12 Number of FACE MAN Visits 0 Evaluation Information Evaluation Date 02/11/21 Precautions Precautions latex allergy PT-OP-B Current Condition Start: 02/11/21 16:10 Freq: Status: Active Protocol: Document 02/11/21 19:00 (Rec: 02/12/21 13:25 [email or web address]) Current Condition History of Current Condition Onset Date 8 months ago Current Complaints L hip pain after a fall, difficulty during sleep History of Current Condition Shayy is a 70 yo active female here for her ongoing L SIJ pain after a fall from 8 months ago. She fell on her L lower back after her hammock broken off from the tree. She stated she was hurting badly for the first few weeks with difficulty mobilizing. Sleeping hurts the worse since she cant sleep on her L side and has to take Advil and Tylenol to help. Denies tingling/ numbness. Her L leg did give out on her a few times. However, her mobility has been progressively getting better but pain 7/10 still persists. She normally likes to walk 2-3 walks a day on uneven surface. She carries wood/ water / groceries often since she lives [facility] by herself. Prior Treatments and Tests 01/09/21 X-ray at L hip IMPRESSION: No source of asymmetric left-sided hip pain is found. Treatment Goals Patient/Caregiver Goals 1. to be able to sleep on her L side again 2. to be pain free with L hip/ low back PT-OP-C Subjective Start: 02/11/21 16:10 Freq: Status: Active Protocol: Document 02/11/21 19:00 (Rec: 02/12/21 13:25 [email or web address]) Patient Questionnaires Lower Extremity Functional Scale LEFS Score 36 LEFS Impairment 40 to 59% Impaired (Score 32- 47) OP-PT Pain Assessment Location L hip Pain Location Details L SIJ region Intensity 7 Description Aching,Dull Frequency Frequent Pain Aggravating Factors Position,ADL's,Activity Pain Alleviating Factors Inactivity PT-OP-D Balance Start: 02/11/21 16:10 Freq: Status: Active Protocol: Document 02/11/21 19:00 HH (Rec: 02/12/21 13:25 [email or web address]) Balance Tests Single Limb Standing Single Limb- Right 27 Single Limb- Left 7 (pain noted at L SIJ) PT-OP-F Manual Assessment Start: 02/11/21 16:10 Freq: Status: Active Protocol: Document 02/11/21 19:00 HH (Rec: 02/12/21 13:25 [email or web address]) Manual Assessments Soft Tissue Assessment Soft Tissue Mobility Assessment painful to pressure at L SIJ region PT-OP-H Neuro Start: 02/11/21 16:10 Freq: Status: Active Protocol: Document 02/11/21 19:00 HH (Rec: 02/12/21 13:25 [email or web address]) Sensation Evaluation Gross Sensation Gross Sensation WNL Deep Tendon Reflex & Clonus Assessment Deep Tendon Reflex Bilateral Achilles Deep Tendon Reflex 2+ Normal Bilateral Patellar Deep Tendon Reflex 2+ Normal PT-OP-K Range of Motion Start: 02/11/21 16:10 Freq: Status: Active Protocol: Document 02/11/21 19:00 HH (Rec: 02/12/21 13:25 [email or web address]) Lumbar Spine Range of Motion Lumbar Spine Active Degrees Comments toe touch test= hands on floor , no discomfort SB to R= stretch at L lumbar region SB to L= painful at L SIJ extension = WFL Hip Goniometric Range of Motion Hip Right Active Comments WFL, no increase in discomfort Left Active Comments WFL, no increase in discomfort pain at L SIJ with active hip extension PT-OP-L Special Tests Start: 02/11/21 16:10 Freq: Status: Active Protocol: Document 02/11/21 19:00 HH (Rec: 02/12/21 13:25 [email or web address]) Special Tests Lumbar Spine Special Tests Prone Instability Test Comments pain at LSIJ with active hip extension Slump Test Results -ve B Straight Leg Raise Test Results -ve B PT-OP-M Strength Start: 02/11/21 16:10 Freq: Status: Active Protocol: Document 02/11/21 19:00 HH (Rec: 06/17/21 13:25 [email or web address]) Hip Strength Hip Manual Muscle Testing Right Flexion (L2) 5 Normal Extension (S1) 5 Normal Abduction 5 Normal Adduction 5 Normal Left Flexion (L2) 5 Normal Extension (S1) 4- Good- Abduction 5 Normal Adduction 5 Normal Comments pain at LSIJ with active hip extension Knee Strength Knee Manual Muscle Testing Right Flexion (S2) 5 Normal Extension (L3) 5 Normal Left Flexion (S2) 5 Normal Extension (L3) 5 Normal Ankle/Foot Strength Ankle and Foot Manual Muscle Testing Right Dorsiflexion (L4) 5 Normal Plantarflexion (S1) 5 Normal Left Dorsiflexion (L4) 5 Normal Plantarflexion (S1) 5 Normal PT-OP-Q Treatments Start: 02/11/21 16:10 Freq: Status: Active Protocol: Document 02/11/21 19:00 (Rec: 02/12/21 13:25 [email or web address]) Therapeutic Exercises Supine Exercises bridging Side bilateral Reps/Minutes 5 sec hold at top x 5 Comments for HEP Sidelying Exercises clamshell Side bilateral Reps/Minutes 8x2 Comments for HEP open book Reps/Minutes 8 x2 Comments for HEP Standing Exercises monster walk Side bilateral Equipment Used band at knees Reps/Minutes 10 ft x 2 Comments cues on neutral spine PT-OP-T Assessment and Plan Start: 02/11/21 16:10 Freq: Status: Active Protocol: Document 02/11/21 19:00 (Rec: 02/12/21 13:25 [email or web address]) Physical Therapy Assessment Rehab Potential Rehabilitation Potential Excellent Evaluation Complexity Number of Personal Factors/Comorbidities 1-2 Number of Body Systems Impaired 1-2 Clinical Presentation at Evaluation Stable Impairments Impairments Activity Tolerance,Balance, Functional Activities, Functional Mobility,Gait,Pain, Posture,ROM,Soft Tissue Mobility,Strength,Transfers Goals activity tolerance Impairment pt has pain in WB position Short Term Goal (STG) pt will be able to complete her daily walk without pain more than 3/10 STG Duration 4 weeks Intermediate Goal (LTG) pt will be able to tolerate carrying groceries/ wood/ water without increase in discomfort LTG Duration 8 weeks LEFS Impairment pt scores 36 on LEFS Short Term Goal (STG) pt will score > 50 on LEFS to show improved overall mobility and strength STG Duration 4 weeks Rug Receiving Clerk Goal (LTG) pt will score > 60 on LEFS to show improved overall mobility and strength LTG Duration 8 weeks sleep Impairment pt has difficulty sleeping on her L side Short Term Goal (STG) pt will have less L hip /SIJ pain <5/10 so she can tolerate sleeping on her L side > 3 days a week STG Duration 4 weeks Intermediate Goal (LTG) pt will have no L hip /SIJ pain so she can tolerate sleeping on her L side for the entire week LTG Duration 8 weeks Assessment Summary Assessment Shayy is a 70 yo active female here for her L SIJ/hip pain after a fall 8 months ago. Upon assessment, pt presents signs of L SIJ strain/ instability who has pain with active hip extension and prolonged WB. Her ROM/ strength are WFL but single leg balance on L is significantly affected. Pt will benefit from skilled therapy to improve her L SIJ stability by focusing on core stabilization and hip strengthening, which allows her to fully return to her daily activtiies without discomfort. Physical Therapy Plan Frequency and Duration Frequency of Treatment 1x/Week Duration of Treatment 8 weeks Plan of Care Start Date 02/11/21 Plan of Care End Date 04/13/21 Therapeutic Interventions Therapeutic Interventions Aquatic Therapy,Balance Training,Gait Training,Home Exercise Program,Joint Mobilizations,Neuromuscular Re -education,Patient/Caregiver Education,Self-Care/Home Management,Soft Tissue Mobilization,Taping, Therapeutic Activities, Therapeutic Exercises Modalities Cold Pack/Ice Massage,Electric Stimulation,Hot Packs, Infrared Therapy,Traction- Mechanical,Ultrasound Next Visit Focus/Plan Next Note Type Treatment Note Next Visit Plan review HEP core stabilization hip strengthening, hip abd, extension in WB position SL balance activities.
--- NOTE | 2021-04-23 13:26 | PT.OPDS ---
Current Diagnoses Pain in left hip (02/11/21) Visit Care Team Role Provider Type Angel Ugalde DO Attending Provider Physician Primary Care Provider Referring Provider Specialty: [facility] Address: [address] [place] [address], [facility] Email: [email or web address] Visit Number Visit Number 09/12 Discharge Summary PT-OP-T Assessment and Plan Start: 02/11/21 16:10 Freq: Status: Active Protocol: Document 04/23/21 13:26 (Rec: 04/23/21 13:26 [email or web address]) Physical Therapy Plan Discharge Physical Therapy Discharge Reasons No Longer Attending PT Discharge Comments pt is no longer attending PT since evaluation. OSIEL frmo PT today
== END 2021-04-23 14:52 | disposition home or self-care (01) ==
LOC: PHYS 14:55
PROVIDERS: PCP Family Medicine; Referring Provider Family Medicine; Visit Provider Family Medicine
DX: M25.552 Pain in left hip (principal)
CPT/HCPCS: 97110; 97161

== ENCOUNTER → 2021-06-27 14:06 | Outpatient (CLI) | payer OTHER, SELFPAY ==
--- NOTE | 2021-06-27 14:08 | DI.MG.S_ITS ---
BILATERAL DIGITAL SCREENING MAMMOGRAM 3D/2D WITH CAD: 06/27/2021 CLINICAL: Routine screening. Family history of breast cancer. Comparison is made to exams dated: 07/30/2019 mammogram, 06/15/2018 mammogram - [facility], and 12/21/2016 mammogram - [facility]. The tissue of both breasts is heterogeneously dense. This may lower the sensitivity of mammography. Current study was also evaluated with a Computer Aided Detection (CAD) system. There are benign diffuse calcifications in both breasts. No significant masses, calcifications, or other findings are seen in either breast. There has been no significant interval change. IMPRESSION: BENIGN There is no mammographic evidence of malignancy. A 1 year screening mammogram is recommended. This exam was interpreted at Station ID: [id number]. NOTE: For mammograms, a report in lay terms will be sent to the patient. Approximately 15% of breast malignancies will not be visualized mammographically. In the management of a palpable breast mass, a negative mammogram must not discourage biopsy of a clinically suspicious lesion. Electronically Signed By: Gary ojeda/dave:06/29/2021 09:51:19 letter sent: Normal Exam ACR BI-RADS Category 2: Benign Finding(s) 3342F
== END ==
PROVIDERS: PCP Family Medicine; Referring Provider Family Medicine; Visit Provider Family Medicine
DX: Z12.31 Encounter for screening mammogram for malignant neoplasm of breast (principal); Z80.3 Family history of malignant neoplasm of breast
CPT/HCPCS: 77063; 77067

== ENCOUNTER → 2021-07-14 11:22 | Outpatient (CLI) | payer OTHER, SELFPAY ==
[2021-07-14 12:31] LABS: Add Manual Diff / Slide Review NO; Basophils Absolute Auto 100 /uL (0-100); Basophils Percent Auto 0.6 % (0-2); Eosinophils Absolute Auto 0 /uL (0-450); Eosinophils Percent Auto 0.4 % (2-4); Lymphocytes Absolute Auto 2200 /uL (1100-4500); Lymphocytes Percent Auto 23.6 % (25-40); Mean Corpuscular HGB Conc 34.1 % (30-36); Mean Corpuscular Hemoglobin 32.9 PG (26-34); Mean Corpuscular Volume 96.4 fL (80-100); Monocytes Absolute Auto 500 /uL (0-900); Monocytes Percent Auto 5.3 % (3-14); Neutrophils Absolute Auto 6500 /uL (1500-7000); Neutrophils Percent Auto 70.1 % (50-75); Platelet Count 345 X10^3/uL (150-400); Red Blood Cell Count 4.26 X10^6/uL (4.0-5.2); Red Cell Distribution Width 12.7 % (11.6-14.8); White Blood Cell Count 9.2 X10^3/uL (4.5-11.0)
[2021-07-14 13:11] LABS: Alanine Aminotransferase 37 IU/L (<35); Albumin 4.4 g/dL (3.5-5.0); Albumin Globulin Ratio 1.8 (1.0-2.8); Alkaline Phosphatase 104 U/L (38-126); Aspartate Aminotransferase 34 IU/L (14-36); BUN Creatinine Ratio 21.2 (6-22); Bilirubin Total 0.6 mg/dL (0.2-1.3); Blood Urea Nitrogen 14 mg/dL (7-17); Calcium 10.1 mg/dL (8.4-10.2); Carbon Dioxide 26 mmol/L (22-32); Chloride 105 mmol/L (98-107); Cholesterol 199 mg/dL (140-199); Estimated Glomerular Filt Rate > 60.0 mL/min (>60); Globulin 2.4 g/dL (1.7-4.1); Glucose 96 mg/dL (80-110); HDL Cholesterol 72 mg/dL (40-60); HEMOLYSIS < 15 (0-50); LDL Cholesterol Calculated 108 mg/dL (<100); Potassium 4.4 mmol/L (3.4-5.1); Sodium 139 mmol/L (137-145); Total Protein 6.8 g/dL (6.3-8.2); Triglycerides 95 mg/dL (35-150)
[2021-07-14 13:35] LABS: TSH w/ Reflex to FT4 1.32 uIU/mL (0.47-4.68)
== END ==
PROVIDERS: PCP Family Medicine; Referring Provider Family Medicine; Visit Provider Family Medicine
DX: Z00.00 Encounter for general adult medical examination without abnormal findings (principal)
CPT/HCPCS: 36415; 80053; 80061; 84443; 85025

== ENCOUNTER → 2021-08-12 08:28 | Outpatient (CLI) | payer OTHER, SELFPAY ==
[2021-08-12 09:40] LABS: Lithium 0.5 mmol/L (0.6-1.2)
== END ==
PROVIDERS: PCP Family Medicine; Referring Provider Psychiatry & Neurology Psychiatry; Visit Provider Psychiatry & Neurology Psychiatry
DX: F31.74 Bipolar disorder, in full remission, most recent episode manic (principal)
CPT/HCPCS: 36415; 80178

== ENCOUNTER → 2021-10-26 11:15 | Outpatient (CLI) | payer OTHER, SELFPAY ==
[2021-10-26 13:27] LABS: COVID19 -Nasal RAPID Negative (Negative)
== END ==
PROVIDERS: PCP Family Medicine; Visit Provider Surgery
DX: Z01.812 Encounter for preprocedural laboratory examination (principal); Z20.822 Contact with and (suspected) exposure to COVID-19
CPT/HCPCS: 87635; C9803

== ENCOUNTER 2021-10-27 09:52 | Day surgery (SDC) | payer OTHER, SELFPAY ==
--- NOTE | 2021-10-27 | PATH_ITS ---
[facility] Accession Number: [id number] . 01 Material submitted: . rectum - RECTAL POLYP . 02 Diagnosis: A. Rectal Polyp, Polypectomy: Tubular adenoma. [facility] 10/30/2021 1543 Local . 02 Electronically signed: . Jigna Robles MD, Pathologist NPI- [id number] . 01 Gross description: . RECTAL POLYP: Received in formalin are 2 fragment(s) of garcia, soft tissue measuring 0.4 x 0.3 x 0.3 cm to 0.3 x 0.3 x 0.2 cm submitted entirely in 1 cassette(s) /CPE 10/29/2021 1428 Local . 02 Pathologist provided ICD-10: D12.8 . 02 CPT . 700941 Specimen Comment: A courtesy copy of this report has been sent to [phone] Performed at: 01 [facility] Cytology [address] [facility], [place], [place] [id number] MD Kevin Sierra MD Phone: [phone] Performed at: [address] [facility] [address] [place], [place] [id number] MD Yamilet Liz MD Phone: [phone]
[2021-10-27] MEDS: LACTATED RINGERS 1,000 ML 200 ML IV (10:04)
[2021-10-27 10:10] VITALS: BP 149/80; PULSE 80; RESP 20; TEMP 36.8; O2SAT 97; BMI 25.0
--- NOTE | 2021-10-27 11:40 | P.HP_ITS ---
History of Present Illness History of Present Illness Date Patient Seen: 10/27/21 Time Patient Seen: 11:41 [place] [facility] [place] The patient presents for colorectal sreening. Previous colonoscopy 2009 records not available but reportedly had polyps. Mother developed colon cancer at the age of 97. On further history denies any recent gastrointestinal symptoms. No nausea, vomiting, abdominal pain, loss of appetite, unexplained weight loss, change in bowel habits, diarrhea, constipation, melena, hematochezia, or bright red blood per rectum. Patient History Medical History Bipolar depression Bipolar disorder (1991) Bipolar disorder, in full remission, most recent episode manic Bronchitis Chickenpox (1951) Chronic back pain (2013) Encounter for Medicare annual wellness exam Fecal incontinence (2014) GERD (gastroesophageal reflux disease) Herpes (1971) Hip pain, left History of colon polyps Hyperlipemia Measles (1952) Migraine aura without headache Migraines (1989) Mumps (1953) Peptic ulcer disease (2015) Rosacea (1989) Shoulder pain (2014) Surgical History History of carpal tunnel release (2009) History of splenectomy (1974) History of tonsillectomy (1967) Hx of hernia repair (1977) Status post hysterectomy (2004) Family & Social History Family History Father Bipolar affective disorder Stroke Mother Age: 98 Diverticular disease Grandfather Cancer Grandmother No problems noted. Grandfather Alcoholism Grandmother No problems noted. Sister Non Hodgkin's lymphoma Social History: household members none Tobacco & Substance use: Smoking Status Never smoker alcohol intake current alcohol intake frequency 0-2 drinks per day Substance Use Type does not use Meds Home Medications and Allergies Home Medications Medication Instructions Recorded Confirmed Type hydrocodone 5 mg-acetaminophen 325 1 tab PO QDAY PRN #20 tab 11/07/19 10/27/21 Rx mg tablet ([place]) lithium carbonate 300 mg tablet 600 mg PO HS #180 tab 01/22/21 10/27/21 Rx verapamil 80 mg tablet 80 mg PO BEDTIME #30 tab 07/15/21 10/27/21 Rx atorvastatin 40 mg tablet See Rx Instructions .ROUTE 08/04/21 10/27/21 Rx .COMPLEX #90 tab divalproex 250 mg tablet,extended 250 mg PO BEDTIME #30 tab 08/04/21 10/27/21 Rx release 24 hr sumatriptan succinate 100 mg 100 mg PO PRN PRN #9 tab 08/17/21 10/27/21 Rx tablet (Imitrex) Allergies Allergy/AdvReac Type Severity Reaction Status Date / Time erythromycin base Allergy Severe anaphalaxic Verified 10/27/21 10:01 [ERYTHROMYCIN BASE] Penicillins [PENICILLINS] Allergy Severe anaphalatic Verified 10/27/21 10:01 latex Allergy Intermediate rash Verified 10/27/21 10:01 most antibiotics Allergy Unknown Uncoded 08/04/21 10:33 Exam Vital Signs (past 8 hours): - 10/27/21 10:10 Temperature 98.3 F Pulse Rate 80 Respiratory Rate 20 Blood Pressure 149/80 H Pulse Oximetry 97 Oxygen Delivery Method Room Air Narrative Exam Narrative: GENERAL: Elderly female in no apparent distress HEENT: No scleral icterus CV: Regular rate, no peripheral edema LUNGS: No increased work of breathing. Patient speaks in full sentences without oxygen support. ABDOMEN: Soft, non-tender, non-distended NEURO: Nonfocal, normal strength throughout, SKIN: Warm and dry Assessment & Plan Assessment and plan (1) History of colon polyps: Status: Acute Assessment & Plan narrative: The patient requires colorectal screening and colonoscopy is recommended. Technical details were discussed. Risks, benefits, alternatives explained. Risks including but not limited to myocardial infarction, aspiration, bleeding, pain, missed lesion, incomplete examination, need for further radiographic studies, colonic perforation, and need for major abdominal surgery were discussed. All questions were answered to their satisfaction, and they are in agreement with this plan. Time Spent With Patient Critical Care time: I spent a total of [] minutes of critical care time on this patient's care today; this time is exclusive of procedural time.
[2021-10-27] MEDS: fentaNYL 250 MCG/5 ML INJ IV (11:59)
[2021-10-27] MEDS: MIDAZOLAM 5 MG/5 ML VIAL IV (12:00)
--- NOTE | 2021-10-27 12:03 | PM.OP.COLON ---
Operative Date/Time/Diagnoses Date of procedure: 10/27/21 Time of procedure: 12:03 Pre-op diagnosis: Screening colonoscopy Post-op diagnosis: same Procedure & Clinicians Study performed: Colonoscopy Same procedure as scheduled: Yes Indications: Screening Surgeon: Robby Lovelace Procedure Notes Procedure in detail: Medications: Conscious sedation using 5mg IV midazolam and 150mcg IV of fentanyl The history and physical was performed/updated and the patient is ASA class is 2. The procedure was discussed in detail with the patient. Potential risks complications including infection, bleeding, missed diagnosis, perforation, need for surgery, and were explained. Their questions were answered and informed consent was obtained. Patient was brought to the procedure room and placed standard monitoring equipment. The patient's vital signs were monitored continuously throughout the entire procedure. Prior to starting time-out was performed. The patient was placed in the left lateral recumbent position. Procedural sedation was administered. Examination began with a thorough inspection of the perianal area there was no evidence of fissures, fistulae, external hemorrhoids or cutaneous malignancy. The colonoscopy scope was then placed into the anal canal and was advanced to the cecum, which was identified by the ileocecal valve, the appendiceal orifice and the confluence of the taenia. The scope was then slowly withdrawn examining colon thoroughly in all directions, irrigating it of any residual stool. FINDINGS 1. Distal rectal polyp 5 mm removed biopsy forceps 2. Sigmoid diverticulosis-mild The patient tolerated the procedure well. They will be discharged once criteria are met. The prep was of good/excellent quality. The withdrawl time was 6 minutes. The sedation time was 16 minutes. Specimen(s): other (Rectal polyp) Complications: none Impression: Colonic polyp Post-procedure Recommendations: Colonoscopy in 5 years Disposition: same day surgery
[2021-10-27 12:08] VITALS: BP 143/76; PULSE 73; RESP 15; TEMP 36.7; O2SAT 97
[2021-10-27 12:13] VITALS: BP 130/78; PULSE 74; RESP 18; O2SAT 98
[2021-10-27 12:18] VITALS: BP 137/79; PULSE 74; RESP 18; TEMP 36.7; O2SAT 99
[2021-10-27 12:35] VITALS: BP 151/92; PULSE 74; RESP 14; O2SAT 99
--- NOTE | 2021-10-27 12:52 | SUR.PHASEII ---
Left message on pt's ride cell phone that pt is ready for pickup.
[2021-10-27 13:05] VITALS: BP 148/80; PULSE 78; RESP 16; O2SAT 98
--- NOTE | 2021-10-27 14:03 | SUR.PHASEII ---
1315 - Pt's Jimena santoro, in the parking lot. Will discharge pt.
== END 2021-10-27 13:20 | disposition home or self-care (01) ==
PROVIDERS: PCP Family Medicine; Referring Provider Surgery; Visit Provider Surgery
PROC: 0DJD8ZZ Inspection of Lower Intestinal Tract, Via Natural or Artificial Opening Endoscopic (ICD-10-PCS; CPT 45378; principal; 2021-10-27 11:30)
DX: Z12.11 Encounter for screening for malignant neoplasm of colon (principal); Z86.010 Personal history of colon polyps; K57.30 Diverticulosis of large intestine without perforation or abscess without bleeding; D12.8 Benign neoplasm of rectum
CPT/HCPCS: 45380; 99152; J2250; J3010

== ENCOUNTER 2021-12-17 09:31 | Emergency (ER) | payer OTHER, SELFPAY ==
[2021-12-17] VITALS (9 sets, daily range): BP systolic 144–183; BP diastolic 70–112; PULSE 67–81; RESP 13–24; TEMP 36.1; O2SAT 94–98; BMI 25.0
--- NOTE | 2021-12-17 09:33 | DI.RAD.S_ITS ---
PROCEDURE: XR CHEST 1V INDICATIONS: chest pain TECHNIQUE: One view of the chest was acquired. COMPARISON: [facility], CR, XR CHEST 1V, 11/22/2020, 8:33. FINDINGS: Surgical changes and devices: None. Lungs and pleura: Low lung volumes. Chronic left lateral lung base atelectasis. No focal consolidations, effusion, or pneumothorax. Mediastinum: Slight crowding of central bronchovascular markings. No central venous congestion. Stable cardiomediastinal contour. Bones and chest wall: No suspicious bony lesions. Overlying soft tissues appear unremarkable. IMPRESSION: 1. Given low lung volumes. No acute cardiopulmonary disease. Dictated by: Zee Fink M.D. on 12/17/2021 at 10:03 Approved by: Zee Fink M.D. on 12/17/2021 at 10:04
[2021-12-17 10:03] LABS: Add Manual Diff / Slide Review NO; Basophils Absolute Auto 100 /uL (0-100); Basophils Percent Auto 0.6 % (0-2); Eosinophils Absolute Auto 100 /uL (0-450); Eosinophils Percent Auto 1.1 % (2-4); Hematocrit 39.2 % (36-46); Hemoglobin 13.3 g/dL (12.0-16.0); Lymphocytes Absolute Auto 2300 /uL (1100-4500); Lymphocytes Percent Auto 23.2 % (25-40); Mean Corpuscular HGB Conc 33.9 % (30-36); Mean Corpuscular Hemoglobin 32.3 PG (26-34); Mean Corpuscular Volume 95.5 fL (80-100); Monocytes Absolute Auto 500 /uL (0-900); Monocytes Percent Auto 5.3 % (3-14); Neutrophils Absolute Auto 7100 /uL (1500-7000); Neutrophils Percent Auto 69.8 % (50-75); Platelet Count 360 X10^3/uL (150-400); Red Blood Cell Count 4.11 X10^6/uL (4.0-5.2); Red Cell Distribution Width 13.1 % (11.6-14.8); White Blood Cell Count 10.1 X10^3/uL (4.5-11.0)
[2021-12-17 10:09] LABS: INR 0.9 (0.9-1.3); Prothrombin Time 10.6 SECONDS (10.1-12.7)
[2021-12-17 10:12] LABS: PTT Partial Thromboplastin Tim 32 SECONDS (26.4-36.2)
[2021-12-17 10:15] LABS: Alanine Aminotransferase 72 IU/L (<35); Albumin 4.3 g/dL (3.5-5.0); Albumin Globulin Ratio 1.6 (1.0-2.8); Alkaline Phosphatase 88 U/L (38-126); Aspartate Aminotransferase 47 IU/L (14-36); BUN Creatinine Ratio 22.6 (6-22); Bilirubin Total 0.6 mg/dL (0.2-1.3); Blood Urea Nitrogen 14 mg/dL (7-17); Calcium 9.3 mg/dL (8.4-10.2); Carbon Dioxide 25 mmol/L (22-32); Chloride 110 mmol/L (98-107); Creatine Kinase 74 U/L (30-135); Estimated Glomerular Filt Rate > 60 mL/min (>60); Globulin 2.7 g/dL (1.7-4.1); Glucose 100 mg/dL (80-110); HEMOLYSIS < 15 (0-50); Lipase 147 U/L (23-300); Magnesium 1.9 mg/dL (1.6-2.3); Potassium 3.9 mmol/L (3.4-5.1); Sodium 140 mmol/L (137-145)
[2021-12-17 10:25] LABS: Troponin I < 0.012 ng/mL (0.01-0.034)
--- NOTE | 2021-12-17 11:39 | ED_ITS ---
HPI - Chest Pain General Chief Complaint: Chest Pain Stated Complaint: Chest pain Time Seen by Provider: 12/17/21 11:20 Source: patient Mode of arrival: Ambulatory Limitations: no limitations Limitations: no limitations History of Present Illness HPI narrative: The patient presents with cough for about 1 year. She has no history of asthma or allergies. She has no history of CHF. Onset of symptoms started after a COVID-19 vaccine. She does not think she has had active COVID-19. She has been seen previously, treated with steroids. The steroids clear for about 3 months. Cough is exacerbated over the past 2 weeks. She is not coughing during our interview. She has no sinus pressure, or sinus drainage. She denies sore throat. She has no headache. She is having no chest discomfort, no palpitations. She complains of cough, occasional productive. She has no peripheral edema or orthopnea. She is status post splenectomy. She has no abdominal discomfort. She denies night sweats. Related Data Previous Rx's Medication Instructions Recorded lithium carbonate 300 mg tablet 600 mg PO HS #180 tab 01/22/21 verapamil 80 mg tablet 80 mg PO BEDTIME #30 tab 07/15/21 atorvastatin 40 mg tablet See Rx Instructions .ROUTE 12/03/21 .COMPLEX #90 tab hydrocodone 5 mg-acetaminophen 325 1 tab PO QDAY PRN #20 tab 12/03/21 mg tablet sumatriptan succinate 100 mg 100 mg PO PRN PRN #9 tab 12/03/21 tablet (Imitrex) doxycycline hyclate 100 mg tablet 100 mg PO Q12H 10 Days #20 tab 12/17/21 Allergies Allergy/AdvReac Type Severity Reaction Status Date / Time erythromycin base Allergy Severe anaphalaxic Verified 12/17/21 09:33 [ERYTHROMYCIN BASE] Penicillins [PENICILLINS] Allergy Severe anaphalatic Verified 12/17/21 09:33 latex Allergy Intermediate rash Verified 12/17/21 09:33 most antibiotics Allergy Unknown Uncoded 11/26/21 16:22 Review of Systems Constitutional Constitutional: Denies body ache(s), Denies chills, Denies fatigue, Denies fever(s) and Denies snoring Eyes Eyes: Denies blurry vision ENT Ears, Nose, Mouth, and Throat: Denies vertigo, Denies dizziness, Denies sinus pain, Denies sinus pressure and Denies sore throat Cardiovascular Cardiovascular: Denies chest pain, Denies rapid heart rate, Denies pedal edema, Denies edema and Denies dyspnea Respiratory Respiratory: Reports chest congestion, Reports cough, Denies dyspnea, Denies snoring and Denies wheezing Gastrointestinal Gastrointestinal: Denies abdominal pain and Denies nausea Musculoskeletal Musculoskeletal: Denies back pain, Denies muscle weakness and Denies myalgias Integumentary/Breasts Skin/Breast: Denies rash Neurologic Neurologic: Denies confusion, Denies vertigo and Denies dizziness Psychiatric Psychiatric: Denies confusion and Denies depression Endocrine Endocrine: Denies fatigue, Denies flushing and Denies heat intolerance Hematologic/Lymphatic On Anticoagulants: No Allergic/Immunologic Allergic/Immunologic: Denies wheezing Patient History Medical History Bipolar depression Bipolar disorder (1991) Bipolar disorder, in full remission, most recent episode manic Bronchitis Chickenpox (1951) Chronic back pain (2013) Chronic cough Encounter for Medicare annual wellness exam Fecal incontinence (2014) GERD (gastroesophageal reflux disease) Herpes (1971) Hip pain, left History of colon polyps Hyperlipemia Measles (1952) Migraine aura without headache Migraines (1989) Mumps (1953) Peptic ulcer disease (2015) Rosacea (1989) Shoulder pain (2014) Surgical History History of carpal tunnel release (2009) History of splenectomy (1974) History of tonsillectomy (1967) Hx of hernia repair (1977) Status post hysterectomy (2004) Family History Father Bipolar affective disorder Stroke Mother Age: 98 Diverticular disease Grandfather Cancer Grandmother No problems noted. Grandfather Alcoholism Grandmother No problems noted. Sister Non Hodgkin's lymphoma Social History household members: none Smoking Status: Never smoker alcohol intake: current Smoking Status: Never smoker alcohol intake frequency: 0-2 drinks per day Substance Use Type: does not use Exam Initial Vital Signs Initial Vital Signs: Vital Signs Temperature 96.9 F L 12/17/21 09:33 Pulse Rate 81 12/17/21 09:33 Respiratory Rate 15 12/17/21 09:33 Blood Pressure 165/96 H 12/17/21 09:33 Pulse Oximetry 97 12/17/21 09:33 Const General: cooperative, healthy appearing, comfortable, well developed and well groomed [facility] Head: normocephalic and atraumatic Face and sinus: normal facial exam and sinuses nontender Mouth: oral mucosae normal Eyes General: appearance normal, both eyes and all related structures Neck Neck: No JVD Resp Effort & Inspection: normal respiratory effort Auscultation: clear to auscultation bilaterally Cardio Rate: regular rate Rhythm: regular rhythm Heart Sounds: S1 normal, S2 normal, no click, no murmurs and no rubs GI Inspection: normal to inspection Palpation: soft and No tender Back/Spine/Pelvis Back: normal to inspection Skin General: no rashes or lesions noted Neuro General: patient alert, patient awake, patient oriented x3 and no focal motor deficits Extrem General: normal to inspection, full ROM, no pedal edema and no calf tenderness Psych Mental Status: mental status grossly normal Course Course Course Narrative: The patient's cardiopulmonary evaluation benign, yet she has frequent productive cough. I have started her on doxycycline for chronic bronchitis. Her PCM has initiated a pulmonology consult that is yet to be completed. I recommended she talk to her doctor about proceeding with the consultation. Orders Ordered: ED Orders 12/17/21 12:47 [place] Stat Discontinued Medications Doxycycline Hyclate (Doxycycline Hyclate 100 Mg Tablet) 100 mg PO NOW ONE Stop: 12/17/21 13:43 Last Admin: 12/17/21 13:47 Dose: 100 mg Documented by: KYRA Vital Signs Vital signs: Vital Signs - 8 hr 12/17/21 13:00 12/17/21 13:30 12/17/21 14:00 Pulse Rate 67 76 79 Respiratory Rate 20 20 Blood Pressure 183/112 H Pulse Oximetry 96 96 MDM - Chest Pain Lab Data Result diagrams: 12/17/21 09:58 12/17/21 09:58 Labs: Lab Results 12/17/21 12/17/21 12/17/21 Range/Units 09:58 09:58 09:58 WBC 10.1 (4.5-11.0) X10^3/uL RBC 4.11 (4.0-5.2) X10^6/uL Hgb 13.3 (12.0-16.0) g/dL Hct 39.2 (36-46) % MCV 95.5 (80-100) fL MCH 32.3 (26-34) PG MCHC 33.9 (30-36) % RDW 13.1 (11.6-14.8) % Plt Count 360 (150-400) X10^3/uL Neut % (Auto) 69.8 (50-75) % Lymph % (Auto) 23.2 L (25-40) % [place] % (Auto) 5.3 (3-14) % Eos % (Auto) 1.1 L (2-4) % Baso % (Auto) 0.6 (0-2) % Neut # (Auto) 7100 H (1157-6870) /uL Lymph # (Auto) 2300 (0695-2203) /uL [place] # (Auto) 500 (0-900) /uL Eos # (Auto) 100 (0-450) /uL Baso # (Auto) 100 (0-100) /uL PT 10.6 (10.1-12.7) SECONDS INR 0.9 (0.9-1.3) APTT 32 (26.4-36.2) SECONDS Sodium 140 (137-145) mmol/L Potassium 3.9 (3.4-5.1) mmol/L Chloride 110 H (98-107) mmol/L Carbon Dioxide 25 (22-32) mmol/L BUN 14 (7-17) mg/dL Creatinine 0.62 (0.52-1.04) mg/dL Estimated GFR > 60 (>60) mL/min BUN/Creatinine Ratio 22.6 H (6-22) Glucose 100 (80-110) mg/dL Calcium 9.3 (8.4-10.2) mg/dL Magnesium 1.9 (1.6-2.3) mg/dL Total Bilirubin 0.6 (0.2-1.3) mg/dL AST 47 H (14-36) IU/L ALT 72 H (<35) IU/L Alkaline Phosphatase 88 (38-126) U/L Total Creatine Kinase 74 (30-135) U/L CK-MB (CK-2) TNP CK-MB (CK-2) Rel Index TNP Troponin I < 0.012 (0.01-0.034) ng/mL NT-Pro-B Natriuret Pep (<125) pg/mL Total Protein 7.0 (6.3-8.2) g/dL Albumin 4.3 (3.5-5.0) g/dL Globulin 2.7 (1.7-4.1) g/dL Albumin/Globulin Ratio 1.6 (1.0-2.8) Lipase 147 (23-300) U/L [place] (0.6-1.2) mmol/L 12/17/21 12/17/21 Range/Units 10:53 12:47 WBC (4.5-11.0) X10^3/uL RBC (4.0-5.2) X10^6/uL Hgb (12.0-16.0) g/dL Hct (36-46) % MCV (80-100) fL MCH (26-34) PG MCHC (30-36) % RDW (11.6-14.8) % Plt Count (150-400) X10^3/uL Neut % (Auto) (50-75) % Lymph % (Auto) (25-40) % [place] % (Auto) (3-14) % Eos % (Auto) (2-4) % Baso % (Auto) (0-2) % Neut # (Auto) (8044-2650) /uL Lymph # (Auto) (1116-7623) /uL [place] # (Auto) (0-900) /uL Eos # (Auto) (0-450) /uL Baso # (Auto) (0-100) /uL PT (10.1-12.7) SECONDS INR (0.9-1.3) APTT (26.4-36.2) SECONDS Sodium (137-145) mmol/L Potassium (3.4-5.1) mmol/L Chloride (98-107) mmol/L Carbon Dioxide (22-32) mmol/L BUN (7-17) mg/dL Creatinine (0.52-1.04) mg/dL Estimated GFR (>60) mL/min BUN/Creatinine Ratio (6-22) Glucose (80-110) mg/dL Calcium (8.4-10.2) mg/dL Magnesium (1.6-2.3) mg/dL Total Bilirubin (0.2-1.3) mg/dL AST (14-36) IU/L ALT (<35) IU/L Alkaline Phosphatase (38-126) U/L Total Creatine Kinase (30-135) U/L CK-MB (CK-2) CK-MB (CK-2) Rel Index Troponin I (0.01-0.034) ng/mL NT-Pro-B Natriuret Pep 89 (<125) pg/mL Total Protein (6.3-8.2) g/dL Albumin (3.5-5.0) g/dL Globulin (1.7-4.1) g/dL Albumin/Globulin Ratio (1.0-2.8) Lipase (23-300) U/L [place] 0.4 L (0.6-1.2) mmol/L Imaging Data Chest x-ray: Radiologist's Impression: No acute findings ECG Data Attestation: I personally reviewed and interpreted this ECG as follows: (Normal sinus rhythm rate 75 beats per minute. Normal intervals. No ectopy. No acute ST T wave changes.) Discharge Plan Departure Patient Disposition: Home Clinical Impression: Chronic bronchitis Instructions: Chronic Bronchitis Activity Restrictions/Additional Instructions: Doxycycline 2 times daily for 10 days. Continue other medications. Follow-up with your PCM, pursue the pulmonary consult your PCM is arranging. Return here as needed. Prescriptions: New doxycycline hyclate 100 mg tablet 100 mg PO Q12H 10 Days Qty: 20 0RF No Action lithium carbonate 300 mg tablet 600 mg PO HS Qty: 180 3RF verapamil 80 mg tablet 80 mg PO BEDTIME Qty: 30 2RF sumatriptan succinate [Imitrex] 100 mg tablet 100 mg PO PRN PRN (Reason: migraine headache) Qty: 9 2RF hydrocodone-acetaminophen 5-325 mg tablet 1 tab PO QDAY PRN (Reason: migraine headache) Qty: 20 0RF atorvastatin 40 mg tablet See Rx Instructions .ROUTE .COMPLEX Qty: 90 3RF Dose Instruction: TAKE 1 TABLET BY MOUTH AT BEDTIME Rx Instructions: TAKE 1 TABLET BY MOUTH AT BEDTIME Referrals: Angel Ugalde, DO [Primary Care Provider] -
[2021-12-17 12:35] LABS: NT-proBNP (BNP-Adult 18+) 89 pg/mL (<125)
[2021-12-17 13:16] LABS: Lithium 0.4 mmol/L (0.6-1.2)
[2021-12-17] MEDS: DOXYCYCLINE HYCLATE 100 MG TABLET PO (13:47)
== END 2021-12-17 14:01 | disposition home or self-care (01) ==
PROVIDERS: Emergency Provider Emergency Medicine; PCP Family Medicine
DX: J42 Unspecified chronic bronchitis (principal); Z88.1 Allergy status to other antibiotic agents; Z88.0 Allergy status to penicillin
CPT/HCPCS: 36415; 71045; 80053; 80178; 82550; 83690; 83735; 83880; 84484; 85025; 85610; 85730; 93005; 99284

== ENCOUNTER → 2022-03-19 09:25 | Outpatient (CLI) | payer OTHER, SELFPAY ==
[2022-03-19 10:39] LABS: COVID19 -Nasal RAPID Negative (Negative)
== END ==
PROVIDERS: Family Provider Family Medicine; PCP Family Medicine; Referring Provider Family Medicine; Visit Provider Family Medicine
DX: R06.02 Shortness of breath (principal)
CPT/HCPCS: 87635; C9803

== ENCOUNTER → 2022-03-19 09:27 | Outpatient (CLI) | payer OTHER, SELFPAY ==
--- NOTE | 2022-03-24 10:50 | PM.PFT.1 ---
Pulmonary Function Test Referral & Results Date Patient Seen: 03/19/22 Requesting provider: Torin Preciado Results: The spirometry demonstrates an FVC of 2.89 L which is 91% of predicted. The FEV1 was measured at 2.33 L which is 98% of predicted. The FEV1/FVC ratio was 81 which is 107% of predicted. Following the administration of bronchodilator there was no appreciable change to above normal numbers. Lung volumes show an SVC of 2.87 L which is 95% of predicted. The diffusing capacity was measured at 17.13 which is 63% of predicted. No hemoglobin value was provided, so no correction for potential anemia could be made, if appropriate. The maximum voluntary ventilation was reduced Interpretation: This study demonstrates normal spirometry but of [id number] reduction diffusing capacity suggesting element of disease at the capillary alveolar level Maximum voluntary ventilation is also minimally reduced which in the absence of any abnormalities of spirometry suggest the possibility of neuromuscular disease Clinical correlation suggested
== END ==
PROVIDERS: Family Provider Family Medicine; PCP Family Medicine; Referring Provider Internal Medicine; Visit Provider Internal Medicine
DX: R06.02 Shortness of breath (principal); J98.8 Other specified respiratory disorders; Z20.822 Contact with and (suspected) exposure to COVID-19
CPT/HCPCS: 87635; 94060; 94726; 94729; C9803

== ENCOUNTER → 2022-06-25 13:30 | Outpatient (CLI) | payer OTHER, SELFPAY ==
--- NOTE | 2022-06-25 13:31 | DI.RAD.S_ITS ---
PROCEDURE: XR FOOT LT MIN 3V INDICATIONS: Left foot pain -1st metatarsal TECHNIQUE: Three views of the foot were acquired. COMPARISON: [facility], CR, XR FOOT RT MIN 3V, 06/25/2022, 13:46. FINDINGS: Bones: No acute fractures or dislocations. No suspicious bony lesions. Soft tissues: No suspicious soft tissue calcification. IMPRESSION: No acute osseous abnormality. If clinical suspicion and/or symptoms persist, additional imaging with repeat plain films, or advanced imaging (e.g. CT, MRI) may be helpful for further assessment. Approved by: Les Arriaza M.D. on 06/25/2022 at 14:44
--- NOTE | 2022-06-25 13:31 | DI.RAD.S_ITS ---
PROCEDURE: XR FOOT RT MIN 3V INDICATIONS: Right heel pain TECHNIQUE: 3 views of the foot were acquired. COMPARISON: None. FINDINGS: Bones: No fractures or dislocations. No suspicious bony lesions. There is a plantar fascia insertion spur on the posterior calcaneus, a potential source of heel pain. Soft tissues: No tibiotalar joint effusion. Achilles tendon appears normal. IMPRESSION: No osseous trauma or soft tissue abnormality seen. Plantar fascia insertion spurring as noted. Dictated by: Murali Ribera M.D. on 06/25/2022 at 14:03 Approved by: Murali Ribera M.D. on 06/25/2022 at 14:03
== END ==
PROVIDERS: Family Provider Family Medicine; PCP Family Medicine; Referring Provider Registered Nurse; Visit Provider Registered Nurse
DX: M79.672 Pain in left foot (principal); M79.671 Pain in right foot; M77.31 Calcaneal spur, right foot
CPT/HCPCS: 73630

== ENCOUNTER → 2022-08-03 08:29 | Outpatient (CLI) | payer OTHER, SELFPAY ==
[2022-08-03 10:16] LABS: Lithium 0.5 mmol/L (0.6-1.2)
[2022-08-03 10:19] LABS: Alanine Aminotransferase 25 IU/L (<35); Albumin 4.2 g/dL (3.5-5.0); Albumin Globulin Ratio 1.6 (1.0-2.8); Alkaline Phosphatase 95 U/L (38-126); Aspartate Aminotransferase 22 IU/L (14-36); BUN Creatinine Ratio 22.4 (6-22); Bilirubin Total 0.3 mg/dL (0.2-1.3); Blood Urea Nitrogen 15 mg/dL (7-17); Carbon Dioxide 28 mmol/L (22-32); Chloride 104 mmol/L (98-107); Estimated Glomerular Filt Rate > 60 mL/min (>60); Globulin 2.6 g/dL (1.7-4.1); Glucose 92 mg/dL (80-110); HEMOLYSIS < 15 (0-50); Potassium 4.4 mmol/L (3.4-5.1); Sodium 139 mmol/L (137-145); Total Protein 6.8 g/dL (6.3-8.2)
[2022-08-03 18:06] LABS: Thyroid Stimulating Hormone 0.823 uIU/mL (0.47-4.68)
== END ==
PROVIDERS: Family Provider Family Medicine; PCP Family Medicine; Referring Provider Psychiatry & Neurology Psychiatry; Visit Provider Psychiatry & Neurology Psychiatry
DX: F31.74 Bipolar disorder, in full remission, most recent episode manic (principal); Z79.899 Other long term (current) drug therapy
CPT/HCPCS: 36415; 80053; 80178; 84443

== ENCOUNTER → 2022-08-10 11:42 | Outpatient (CLI) | payer OTHER, SELFPAY ==
--- NOTE | 2022-08-10 | DI.MG.S_ITS ---
BILATERAL DIGITAL SCREENING MAMMOGRAM 3D/2D WITH CAD: 08/10/2022 CLINICAL: Routine screening. Family history of breast cancer. Comparison is made to exams dated: 06/27/2021 mammogram, 07/30/2019 mammogram, and 06/15/2018 mammogram - [facility]. Both breasts are heterogeneously dense, which may obscure small masses (category c / 51-75% glandular tissue). Current study was also evaluated with a Computer Aided Detection (CAD) system. There are benign diffuse calcifications in both breasts. No significant masses, calcifications, or other findings are seen in either breast. There has been no significant interval change. IMPRESSION: BENIGN There is no mammographic evidence of malignancy. A 1 year screening mammogram is recommended. Based on the Tyrer Cuzick model (a risk assessment model) the patient's lifetime risk is 12.3% and her 10 year risk is 10.1%. According to the ACR, ACS, and NCCN guidelines, an annual breast MRI exam along with mammogram is recommended if the patient's lifetime risk is 20% or greater. This exam was interpreted at Station ID: [id number]. NOTE: For mammograms, a report in lay terms will be sent to the patient. Approximately 15% of breast malignancies will not be visualized mammographically. In the management of a palpable breast mass, a negative mammogram must not discourage biopsy of a clinically suspicious lesion. Electronically Signed By: Shawn onofre/dave:08/10/2022 13:23:01 letter sent: Normal Exam ACR BI-RADS Category 2: Benign Finding(s) 3342F
== END ==
PROVIDERS: Family Provider Family Medicine; PCP Family Medicine; Referring Provider Family Medicine; Visit Provider Family Medicine
DX: Z12.31 Encounter for screening mammogram for malignant neoplasm of breast (principal); Z80.3 Family history of malignant neoplasm of breast
CPT/HCPCS: 77063; 77067

== ENCOUNTER 2022-09-13 10:47 | Emergency (ER) | payer OTHER, SELFPAY ==
[2022-09-13 11:03] VITALS: BP 172/79; PULSE 83; TEMP 36.7; O2SAT 98
[2022-09-13 11:04] VITALS: PULSE 70
--- NOTE | 2022-09-13 11:07 | DI.RAD.S_ITS ---
PROCEDURE: XR FOOT LT MIN 3V INDICATIONS: foot pain, no obvious injury TECHNIQUE: 3 views of the foot were acquired. COMPARISON: [facility], CR, XR FOOT LT MIN 3V, 06/25/2022, 13:48. FINDINGS: Bones: No fractures or dislocations. No suspicious bony lesions. Soft tissues: No tibiotalar joint effusion. Achilles tendon appears normal. IMPRESSION: No acute radiographic findings. If pain persists, followup imaging in 5-7 days is recommended to exclude occult fracture. Dictated by: Elysia Cisse M.D. on 09/13/2022 at 11:53 Approved by: Elysia Cisse M.D. on 09/13/2022 at 11:53
--- NOTE | 2022-09-13 11:42 | ED_ITS ---
HPI - Extremity Problem General Chief complaint: Extremity Problem,Nontraumatic Stated complaint: stress fractured LT foot since pain for 4 months Time Seen by Provider: 09/13/22 10:58 Source: patient Mode of arrival: Ambulatory History of Present Illness HPI Narrative: 72-year-old female nonsmoker with history of bipolar disorder, migraines, hypertension and hyperlipidemia presents with ongoing left foot pain for many months. She states that she is been having pain in the arch of her foot for quite some time and has had x-rays that were unremarkable. She has worked with her primary care team and has a referral to Orthopedics on but states that the pain has become unbearable over the past few days. She denies any specific or memorable injury, she has no redness, warmth nor systemic complaints such as fever, chills nor nausea or vomiting. She states that [place] and is concerned that perhaps she has a stress fracture. Her pain has not been appropriately controlled with Tylenol or Motrin Related Data Previous Rx's Medication Instructions Recorded verapamil 80 mg tablet 80 mg PO BEDTIME #30 tabs 07/15/21 atorvastatin 40 mg tablet See Rx Instructions .Route 12/03/21 .COMPLEX #90 tabs hydrocodone 5 mg-acetaminophen 325 1 tab PO QDAY PRN migraine 12/03/21 mg tablet headache #20 tabs sumatriptan succinate 100 mg 100 mg PO PRN PRN migraine 12/03/21 tablet (Imitrex) headache #9 tabs lithium carbonate 300 mg tablet 600 mg PO HS #180 tabs 03/09/22 losartan 25 mg tablet 25 mg PO DAILY #90 tabs 07/12/22 hydrocodone 5 mg-acetaminophen 325 1 tab PO Q4-6H PRN pain #10 tabs 09/13/22 mg tablet ketorolac 10 mg tablet 10 mg PO Q6H PRN pain #14 tabs 09/13/22 Allergies Allergy/AdvReac Type Severity Reaction Status Date / Time erythromycin base Allergy Severe anaphalaxic Verified 12/17/21 09:33 [ERYTHROMYCIN BASE] Penicillins [PENICILLINS] Allergy Severe anaphalatic Verified 12/17/21 09:33 latex Allergy Intermediate rash Verified 12/17/21 09:33 most antibiotics Allergy Unknown Uncoded 11/26/21 16:22 Review of Systems Review of Systems Narrative: GENERAL: See HPI HEENT: Denies sinus pain, ear pain, sore throat, difficulty swallowing, dizziness. RESPIRATORY: Denies dyspnea, cough, wheezing, hemoptysis, sputum. CARDIOVASCULAR: Denies chest pain, palpitations, orthopnea, edema, GASTROINTESTINAL: Denies nausea, vomiting, abdominal pain, diarrhea, constipation, melena. : Denies dysuria, frequency, incontinence, hematuria, urinary retention. MUSCULOSKELETAL: See HPI SKIN: Denies rash, skin lesions, or other NEUROLOGIC: See HPI PSYCHIATRIC: No concerning psychosocial issues. 12 point review of systems is negative except for those stated above Patient History Medical History Bipolar depression Bipolar disorder (1991) Bipolar disorder, in full remission, most recent episode manic Bronchitis Chickenpox (1951) Chronic back pain (2013) Chronic cough Encounter for Medicare annual wellness exam Fecal incontinence (2014) GERD (gastroesophageal reflux disease) Herpes (1971) Hip pain, left History of colon polyps Hyperlipemia Hypertension Measles (1952) Migraine aura without headache Migraines (1989) Mumps (1953) Peptic ulcer disease (2015) Rosacea (1989) Shoulder pain (2014) Surgical History History of carpal tunnel release (2009) History of splenectomy (1974) History of tonsillectomy (1967) Hx of hernia repair (1977) Status post hysterectomy (2004) Family History Father Bipolar affective disorder Stroke Mother Age: 98 Diverticular disease Grandfather Cancer Grandmother No problems noted. Grandfather Alcoholism Grandmother No problems noted. Sister Non Hodgkin's lymphoma Social History household members: none Smoking Status: Never smoker alcohol intake: current Smoking Status: Never smoker alcohol intake frequency: 0-2 drinks per day Substance Use Type: does not use Exam Narrative Exam Narrative: GEN: AOx3 and in mild distress EYES: Pupils are equal, round, and reactive to light and accommodation. Extraoccular muscles are intact bilaterally. There is no subconjunctival hemorrhage or exudate. CHEST: Lungs are clear to auscultation bilaterally and free of wheezes, rales, or rhonchi. Heart rate is regular rhythm, there are no murmurs, clicks, rubs, or gallops. There is no chest wall tenderness. ABD: Abdomen is soft and nontender. There is no guarding or rebound. Bowel sounds are normal in all 4 quadrants. There is no mass or organomegaly. EXT: Left foot without obvious external manifestation of injury or Disease. No redness or warmth, tender to palpate in the arch of her foot, perhaps minimal swelling. No redness, warmth, red streaks. No induration or fluctuance. No bony tenderness. NO pain at heel. Sensation and cap refill in tact SKIN: Warm, pink, and dry. No erythema or rash Initial Vital Signs Initial Vital Signs: Vital Signs Temperature 98.0 F 09/13/22 11:03 Pulse Rate 83 09/13/22 11:03 Blood Pressure 172/79 H 09/13/22 11:03 Pulse Oximetry 98 09/13/22 11:03 Oxygen Delivery Method 09/13/22 11:03 Course Orders Ordered: ED Orders 09/13/22 11:07 XR foot LT min 3V Stat Consultations Consultation #1: discussed treatment options with [facility] ortho for completeness. Recommends arch support, stiff soled shoes, anti-inflammatories and follow up as planned Vital Signs Vital signs: Vital Signs - 8 hr 09/13/22 11:04 09/13/22 11:03 Temperature 98.0 F Pulse Rate 83 Pulse Rate [Left Dorsalis Pedis] 70 Blood Pressure 172/79 H Pulse Oximetry 98 Oxygen Delivery Method Room Air MDM - Extremity (Nontraumatic) MDM Narrative Medical decision making narrative: [72-year-old female with chronic foot pain, no injury, redness or warmth] Multiple etiologies for patient's symptoms considered including, but not limited to: [Stress fracture, plantar fasciitis, infection, gout, foreign body versus other] Prior Charts reviewed: Including prior ED visits Imaging reviewed: No obvious acute bony abnormality Consultations: Discussed with on-call ortho as above Patient with chronic left foot pain without known injury. X-ray without evidence of fracture, dislocation or foreign body. No erythema, warmth, induration, fluctuance or other significant abnormality. Neurovascularly intact, isolated and closed. Patient encouraged to use where with arch support, stiff soles, continued and regular use of anti-inflammatories and maintain her existing planned visit with ortho in 3 days Findings and discharge diagnosis discussed with patient/family followed by verbalization of understanding Return precautions discussed with patient/family whom verbalize understanding of diagnosis and plan Discharge Plan Departure Patient Disposition: Home Clinical Impression: Chronic pain in left foot Instructions: DI for Foot Pain Activity Restrictions/Additional Instructions: *You have been diagnosed with [acute on chronic left foot pain. As we discussed your history and physical exam are reassuring and x-ray shows no evidence of fracture or dislocation. This likely represents an inflammatory process or even possibly stress fracture. *What to do: *Please continue to take your regular medications as directed. [x ] New medication prescriptions sent to your pharmacy: [ [facility]] [ ] New medication written as a paper prescription [ ] No new medications given *Please follow up with Orthopedics on as previously planned. Please let them know that you were seen in the emergency department today so they may obtain the records for review. *Return to Emergency Department if you should have any new, worsening or concerning symptoms, such as [fever greater than 101 F, shaking chills, worsening pain, persistent vomiting or other bothersome symptoms] You have been prescribed a short course of narcotic medications. These are potentially dangerous and addictive medications that should be used carefully. While on these medications you cannot drive or operate heavy machinery. Additionally, you cannot sign legal documents or perform any duties such as this. 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 Please understand that we cannot provide further refills of narcotics or controlled substances through the ED and your pain management will need to be through your Primary Care Provider Prescriptions: New hydrocodone-acetaminophen 5-325 mg tablet 1 tab PO Q4-6H PRN (Reason: pain) Qty: 10 0RF ketorolac 10 mg tablet 10 mg PO Q6H PRN (Reason: pain) Qty: 14 0RF No Action lithium carbonate 300 mg tablet 600 mg PO HS Qty: 180 3RF losartan 25 mg tablet 25 mg PO DAILY Qty: 90 1RF verapamil 80 mg tablet 80 mg PO BEDTIME Qty: 30 2RF sumatriptan succinate [Imitrex] 100 mg tablet 100 mg PO PRN PRN (Reason: migraine headache) Qty: 9 2RF hydrocodone-acetaminophen 5-325 mg tablet 1 tab PO QDAY PRN (Reason: migraine headache) Qty: 20 0RF atorvastatin 40 mg tablet See Rx Instructions .ROUTE .COMPLEX Qty: 90 3RF Dose Instruction: TAKE 1 TABLET BY MOUTH AT BEDTIME Rx Instructions: TAKE 1 TABLET BY MOUTH AT BEDTIME Referrals: Angel Ugalde, [Primary Care Provider] - Stand Alone Forms: Patient Portal/API
[2022-09-13 12:25] VITALS: BP 155/86
== END 2022-09-13 12:26 | disposition home or self-care (01) ==
PROVIDERS: Emergency Provider Emergency Medicine; Family Provider Family Medicine; PCP Family Medicine
DX: M79.672 Pain in left foot (principal)
CPT/HCPCS: 73630; 99283

== ENCOUNTER → 2022-10-01 14:48 | Outpatient (CLI) | payer OTHER, SELFPAY ==
--- NOTE | 2022-10-01 14:49 | DI.MRI.S_ITS ---
PROCEDURE: MR ANKLE LT WO CON INDICATIONS: Pain in left foot TECHNIQUE: Noncontrast sagittal T1 spin echo and T2 fast spin echo with fat saturation, axial proton density fast spin echo and T2 fast spin echo with fat saturation, coronal T1 spin echo and T2 fast spin echo with fat saturation through the ankle/hindfoot. COMPARISON: [facility], CR, XR FOOT LT MIN 3V, 06/25/2022, 13:48. [facility], CR, XR FOOT LT MIN 3V, 09/13/2022, 11:05. FINDINGS: Image quality: Excellent. Bones and joints: No bone marrow contusions or fractures. Mild midfoot and hindfoot joint osteoarthritic changes are seen with joint space narrowing and subchondral sclerosis. No hindfoot coalitions. No osteochondral injuries of the talar dome. Small amount of tibiotalar and subtalar joint effusion is seen. Medial structures: The posterior tibialis, flexor digitorum longus, and flexor hallucis longus tendons are intact. Small amount of fluid distending tendon sheath of flexor tendons is seen. The posterior tibial neurovascular bundle appears normal within the tarsal tunnel, without extrinsic mass effect. The deltoid ligament and spring ligament are thickened.. Lateral structures: The anterior talofibular ligament is markedly thickened with mild adjacent edema. The calcaneofibular, and posterior talofibular ligaments appear intact. More superiorly, the anterior and posterior tibiofibular ligaments appear intact, as is the intermalleolar ligament. The tibiofibular syndesmosis is normal in width at 2 mm or less. The peroneus brevis tendon is intact. Thickened peroneus longus tendon at the level of calcaneus and calcaneocuboid joint is seen. Adjacent bony peroneal tubercle and retrotrochlear prominence are normal in size. The sinus tarsi demonstrates normal fatty signal, without edema, fibrosis, or cyst formation. Visualized sinus tarsi components (cervical ligament, interosseous talocalcaneal ligament, roots of the inferior extensor retinaculum) appear normal. The calcaneonavicular and calcaneocuboid components of the bifurcate ligament appear intact. The dorsal calcaneocuboid ligament appears intact. Anterior structures: The tibialis anterior, extensor hallucis longus, and extensor digitorum longus tendons appear intact. The dorsal talonavicular ligament appears intact. Posterior and plantar structures: Ach distal Achilles tendon is mildly thickened extending to its posterior calcaneal insertion. Medial and lateral bands of the plantar fascia are of normal thickness. No abductor digiti quinti muscle atrophy to suggest Snyder neuropathy. IMPRESSION: 1. Mild midfoot and hindfoot joint osteoarthritis. No fracture or dislocation. No osteochondral injury of talar dome. Small amount of joint effusion, no gross loose bodies. 2. Low-grade tenosynovitis involving flexor tendons with fluid distending tendon sheath. Mildly thickened medial ankle ligaments suggestive of low-grade ligament sprain. 3. Sprain/low-grade partial-thickness tear involving anterior talofibular ligament. 4. Tendinosis and low-grade intrasubstance partial-thickness tear involving peroneus longus tendon at the level of calcaneus and calcaneocuboid joint. 5. Distal Achilles tendinosis at its posterior calcaneal insertion. No Achilles tendon rupture. Dictated by: Duane Roach M.D. on 10/01/2022 at 16:30 Approved by: Duane Roach M.D. on 10/01/2022 at 16:51
== END ==
PROVIDERS: Family Provider Family Medicine; PCP Family Medicine; Referring Provider Podiatrist; Visit Provider Podiatrist
DX: M19.072 Primary osteoarthritis, left ankle and foot (principal); M65.872 Other synovitis and tenosynovitis, left ankle and foot; S93.492A Sprain of other ligament of left ankle, initial encounter; M79.672 Pain in left foot
CPT/HCPCS: 73721

== ENCOUNTER → 2023-02-04 09:02 | Outpatient (CLI) | payer OTHER, SELFPAY ==
[2023-02-04 10:08] LABS: Alanine Aminotransferase 27 IU/L (<35); Albumin 4.3 g/dL (3.5-5.0); Albumin Globulin Ratio 1.9 (1.0-2.8); Alkaline Phosphatase 86 U/L (38-126); Aspartate Aminotransferase 26 IU/L (14-36); BUN Creatinine Ratio 21.5 (6-22); Bilirubin Total 0.5 mg/dL (0.2-1.3); Blood Urea Nitrogen 14 mg/dL (7-17); Calcium 10.2 mg/dL (8.4-10.2); Carbon Dioxide 29 mmol/L (22-32); Chloride 105 mmol/L (98-107); Estimated Glomerular Filt Rate > 60 mL/min (>60); Globulin 2.3 g/dL (1.7-4.1); Glucose 86 mg/dL (80-110); HEMOLYSIS < 15 (0-50); Potassium 5.1 mmol/L (3.4-5.1); Sodium 139 mmol/L (137-145); Total Protein 6.6 g/dL (6.3-8.2)
[2023-02-04 10:09] LABS: Lithium 0.6 mmol/L (0.6-1.2)
== END ==
PROVIDERS: Family Provider Family Medicine; PCP Family Medicine; Referring Provider Psychiatry & Neurology Psychiatry; Visit Provider Psychiatry & Neurology Psychiatry
DX: Z00.00 Encounter for general adult medical examination without abnormal findings (principal); F31.9 Bipolar disorder, unspecified; Z79.899 Other long term (current) drug therapy
CPT/HCPCS: 36415; 80053; 80178

== ENCOUNTER → 2023-09-26 15:05 | Outpatient (CLI) | payer OTHER, SELFPAY ==
--- NOTE | 2023-09-26 15:11 | DI.RAD.S_ITS ---
PROCEDURE: XR CERVICAL SPINE 2V OR 3V INDICATIONS: neck pain TECHNIQUE: 3 view(s) of the cervical spine were acquired. COMPARISON: None. FINDINGS: Bones: No fractures or dislocations to the C7 level. The lateral masses of C1 appear intact on the odontoid view. No suspicious bony lesions. Grade 1 anterolisthesis of C7 on T1. Moderate multilevel disc height loss, endplate sclerosis and osteophytosis from C4 to C6. Soft tissues: No prevertebral soft tissue swelling. IMPRESSION: No displaced fracture or traumatic subluxation. Grade 1 anterolisthesis of C7 on T1. Moderate multilevel disc degenerative changes from C4-C6. Approved by: Sneha Winters M.D. on 09/27/2023 at 0:39
== END ==
LOC: DI 15:08
PROVIDERS: Family Provider Family Medicine; PCP Family Medicine; Referring Provider Family Medicine; Visit Provider Family Medicine
DX: M47.22 Other spondylosis with radiculopathy, cervical region (principal); M43.13 Spondylolisthesis, cervicothoracic region; M54.2 Cervicalgia
CPT/HCPCS: 72040

== ENCOUNTER → 2023-10-03 12:28 | Outpatient (CLI) | payer OTHER, SELFPAY ==
--- NOTE | 2023-10-03 12:30 | DI.ECHO.S_ITS ---
[place] +---------+ [facility] +---------+ : : [address] : : : : [id number] : : : : Phone: [phone]+ Echocardiogram Report + + :Name: CODY JOHNSON Study Date: 10/03/2023 Height: 66 in : :[facility] ReadingLocation: Weight: 150 lb : : Gender: Female BSA: 1.8 m2 : :: 1950 Age: 73 yrs BP: 143/92 mmHg: :Reason For Study: FATIGUE : :Ordering Physician: REZA, : :AKSHAT Performed By: Kierra Barrett : :Referring: AKSHAT COBB : + + Interpretation Summary Limited Echo: 1) Normal left ventricular thickness, size, wall motion, and systolic function (EF 55-60%). 2) Normal right ventricular size and function. 3) No prior Echo available for comparison. Procedure: Images were not obtained from all of the standard acoustic windows due to the limited scope of the study. The study quality was technically good. There is no prior echocardiogram noted for this patient. The patient was in sinus rhythm with heart rates between 71-89 bpm during the exam. Left Ventricle: The left ventricle is normal in size and wall thickness. The ejection fraction is estimated to be 55-60%. Left ventricular systolic function appears normal without focal wall motion abnormalities. Diastolic parameters suggest a relaxation abnormality of the left ventricle, consistent with probable normal filling pressures. Right Ventricle: The right ventricle grossly appears normal in size with probable normal systolic function. Atria: The left atrial size is normal. Right atrial size is normal. Mitral Valve: The mitral valve is normal in structure and function. There is trace mitral regurgitation. Aortic Valve: The aortic valve is trileaflet. The aortic valve opens well. Tricuspid Valve: The tricuspid valve is normal in structure and function. There is mild tricuspid regurgitation. The right ventricular systolic pressure is estimated to be at least 22 mmHg based on an estimated right atrial pressure of 3 mm Hg. Pericardium/ Pleura There is no pericardial effusion. There is no pleural effusion. MMode/2D Measurements & Calculations LVIDd: 3.8 cm LA A2 area: 16.3 cm2 LVIDs: 2.4 cm LA A4 area: 17.8 cm2 FS: 37.7 % LA length (vol): 5.1 cm IVSd: 1.0 cm LA vol: 47.8 ml LVPWd: 0.81 cm LA vol index: 27.0 ml/m2 LV gusman. diameter/BSA (cm/m^2): 2.2 LV sys. diameter/BSA (cm/m^2): 1.3 RA long axis: 4.2 cm RA area: 12.9 cm2 RA vol: 33.9 ml RA : 19.2 ml/m2 IVC diam: 1.6 cm Doppler Measurements & Calculations MV E max collin: 41.2 cm/sec TR max collin: 220.4 cm/sec MV A max collin: 51.0 cm/sec TR max P.4 mmHg MV E/A: 0.81 Med Peak E' Collin: 4.6 cm/sec E/E' med: 9.0 Lat Peak E' Collin: 9.5 cm/sec E/E' lat: 4.3 E/e' average: 6.7 MV dec time: 0.31 sec Reading Physician:05:15 PM
== END ==
LOC: ECHO 12:29
PROVIDERS: Family Provider Family Medicine; PCP Family Medicine; Referring Provider Family Medicine; Visit Provider Family Medicine
DX: R53.83 Other fatigue (principal); R06.02 Shortness of breath; I07.1 Rheumatic tricuspid insufficiency
CPT/HCPCS: 93307

== ENCOUNTER → 2023-10-07 10:58 | Outpatient (CLI) | payer OTHER, SELFPAY ==
--- NOTE | 2023-10-07 10:59 | DI.MG.S_ITS ---
BILATERAL DIGITAL SCREENING MAMMOGRAM 3D/2D WITH CAD: 10/07/2023 CLINICAL: Routine screening. Family history of breast cancer. Comparison is made to exams dated: 08/10/2022 mammogram, 06/27/2021 mammogram, and 07/30/2019 mammogram - [facility]. Both breasts are heterogeneously dense, which may obscure small masses (category c / 51-75% glandular tissue). Current study was also evaluated with a Computer Aided Detection (CAD) system. There is a focal asymmetry in the right breast central to the nipple middle depth. This is more prominent. No other significant masses, calcifications, or other findings are seen in either breast. IMPRESSION: INCOMPLETE: NEEDS ADDITIONAL IMAGING EVALUATION The focal asymmetry in the right breast is indeterminate. Additional views with possible ultrasound are recommended. Based on the Tyrer Cuzick model (a risk assessment model) the patient's lifetime risk is 11.5% and her 10 year risk is 10.4%. According to the ACR, ACS, and NCCN guidelines, an annual breast MRI exam along with mammogram is recommended if the patient's lifetime risk is 20% or greater. This exam was interpreted at Station ID: [id number]. NOTE: For mammograms, a report in lay terms will be sent to the patient. Approximately 15% of breast malignancies will not be visualized mammographically. In the management of a palpable breast mass, a negative mammogram must not discourage biopsy of a clinically suspicious lesion. Electronically Signed By: Shawn Huggins M.D. lc/:10/07/2023 13:53:44 letter sent: Additional Imaging Needed ACR BI-RADS Category 0: Incomplete [id number]
== END ==
PROVIDERS: Family Provider Family Medicine; PCP Family Medicine; Referring Provider Family Medicine; Visit Provider Family Medicine
DX: Z12.31 Encounter for screening mammogram for malignant neoplasm of breast (principal); Z80.3 Family history of malignant neoplasm of breast; R92.333 Mammographic heterogeneous density, bilateral breasts
CPT/HCPCS: 77063; 77067

== ENCOUNTER → 2023-10-20 09:01 | Outpatient (CLI) | payer OTHER, SELFPAY ==
[2023-10-20 10:27] LABS: Add Manual Diff / Slide Review NO; Basophils Absolute Auto 100 /uL (0-100); Basophils Percent Auto 0.7 % (0-2); Eosinophils Absolute Auto 100 /uL (0-450); Hematocrit 39.2 % (36-46); Hemoglobin 13.2 g/dL (12.0-16.0); Lymphocytes Absolute Auto 2400 /uL (1100-4500); Lymphocytes Percent Auto 23.3 % (25-40); Mean Corpuscular HGB Conc 33.7 % (30-36); Mean Corpuscular Hemoglobin 32.1 PG (26-34); Mean Corpuscular Volume 95.4 fL (80-100); Monocytes Absolute Auto 600 /uL (0-900); Neutrophils Absolute Auto 7200 /uL (1500-7000); Platelet Count 384 X10^3/uL (150-400); Red Blood Cell Count 4.11 X10^6/uL (4.0-5.2); Red Cell Distribution Width 13.1 % (11.6-14.8); White Blood Cell Count 10.4 X10^3/uL (4.5-11.0)
[2023-10-20 11:00] LABS: Alanine Aminotransferase 23 IU/L (<35); Albumin 4.3 g/dL (3.5-5.0); Albumin Globulin Ratio 1.6 (1.0-2.8); Alkaline Phosphatase 98 U/L (38-126); Aspartate Aminotransferase 26 IU/L (14-36); BUN Creatinine Ratio 27.6 (6-22); Bilirubin Total 0.5 mg/dL (0.2-1.3); Blood Urea Nitrogen 16 mg/dL (7-17); Calcium 9.7 mg/dL (8.4-10.2); Carbon Dioxide 26 mmol/L (22-32); Chloride 107 mmol/L (98-107); Cholesterol 237 mg/dL (140-199); Estimated Glomerular Filt Rate > 60 mL/min (>60); Globulin 2.7 g/dL (1.7-4.1); Glucose 100 mg/dL (80-110); HDL Cholesterol 61 mg/dL (40-60); HEMOLYSIS < 15 (0-50); LDL Cholesterol Calculated 153 mg/dL (<100); Potassium 4.8 mmol/L (3.4-5.1); Sodium 140 mmol/L (137-145); Triglycerides 115 mg/dL (35-150)
[2023-10-20 11:20] LABS: TSH w/ Reflex to FT4 0.43 uIU/mL (0.47-4.68)
== END ==
PROVIDERS: Family Provider Family Medicine; PCP Family Medicine; Referring Provider Family Medicine; Visit Provider Family Medicine
DX: Z00.00 Encounter for general adult medical examination without abnormal findings (principal); E78.00 Pure hypercholesterolemia, unspecified
CPT/HCPCS: 36415; 80053; 80061; 84439; 84443; 85025

== ENCOUNTER → 2023-10-27 11:28 | Outpatient (CLI) | payer OTHER, SELFPAY ==
--- NOTE | 2023-10-27 11:30 | DI.MG.S_ITS ---
UNILATERAL RIGHT DIGITAL DIAGNOSTIC MAMMOGRAM 3D/2D WITH ADDITIONAL VIEWS: 10/27/2023 CLINICAL: Additional evaluation requested from prior study. Comparison is made to exams dated: 10/07/2023 mammogram, 08/10/2022 mammogram, and 06/27/2021 mammogram - [facility]. The right breast is heterogeneously dense, which may obscure small masses (category c / 51-75% glandular tissue). There is a focal asymmetry in the right breast central to the nipple middle depth. This is not seen in additional views. No other significant masses or calcifications are seen in the breast. IMPRESSION: INCOMPLETE: NEEDS ADDITIONAL IMAGING EVALUATION The focal asymmetry in the right breast is not confirmed. A second look with ultrasound is recommended and will immediately follow. Based on the Tyrer Cuzick model (a risk assessment model) the patient's lifetime risk is 11.5% and her 10 year risk is 10.4%. According to the ACR, ACS, and NCCN guidelines, an annual breast MRI exam along with mammogram is recommended if the patient's lifetime risk is 20% or greater. This exam was interpreted at Station ID: [id number]. NOTE: For mammograms, a report in lay terms will be sent to the patient. Approximately 15% of breast malignancies will not be visualized mammographically. In the management of a palpable breast mass, a negative mammogram must not discourage biopsy of a clinically suspicious lesion. Electronically Signed By: Ilan Finnegan M.D. slc/:10/27/2023 12:39:21 ACR BI-RADS Category 0: Incomplete [id number]
--- NOTE | 2023-10-27 11:30 | DI.US.S_ITS ---
LIMITED ULTRASOUND OF RIGHT BREAST: 10/27/2023 CLINICAL: Patient returns today to evaluate an asymmetry in the right breast. Comparison is made to exams dated: 10/27/2023 mammogram, 10/07/2023 mammogram, 08/10/2022 mammogram, 06/27/2021 mammogram, 07/30/2019 mammogram, and 06/15/2018 mammogram - [facility]. Color flow and real-time ultrasound of the right breast 11-12 o'clock region were performed. Hines scale images of the real-time examination were reviewed. There is a possible 0.7 cm x 0.5 cm x 0.5 cm oval cyst in the right breast at 11 o'clock middle depth 8 cm from the nipple. This oval cyst is hypoechoic. Color flow imaging demonstrates that there is no vascularity present. IMPRESSION: PROBABLY BENIGN The possible 0.7 cm oval cyst in the right breast is probably benign. A follow-up mammogram and an ultrasound in 6 months is recommended to demonstrate stability. Exam findings were conveyed to the patient. This exam was interpreted at Station ID: [id number]. Electronically Signed By: Ilan Finnegan M.D. slc/:10/27/2023 13:20:03 letter sent: Followup Recommended Ultrasound BI-RADS: 3 Probably benign
== END ==
LOC: MAMMO 11:29
PROVIDERS: Family Provider Family Medicine; PCP Family Medicine; Referring Provider Family Medicine; Visit Provider Family Medicine
DX: R92.8 Other abnormal and inconclusive findings on diagnostic imaging of breast (principal); R92.331 Mammographic heterogeneous density, right breast
CPT/HCPCS: 76642; 77065; G0279

== ENCOUNTER → 2023-12-09 10:49 | Outpatient (CLI) | payer OTHER, SELFPAY ==
[2023-12-09 12:29] LABS: Alanine Aminotransferase 23 IU/L (<35); Albumin 4.1 g/dL (3.5-5.0); Albumin Globulin Ratio 1.6 (1.0-2.8); Alkaline Phosphatase 110 U/L (38-126); Aspartate Aminotransferase 24 IU/L (14-36); Bilirubin Total 0.5 mg/dL (0.2-1.3); Blood Urea Nitrogen 18 mg/dL (7-17); Calcium 10.2 mg/dL (8.4-10.2); Carbon Dioxide 25 mmol/L (22-32); Chloride 108 mmol/L (98-107); Estimated Glomerular Filt Rate > 60 mL/min (>60); Globulin 2.6 g/dL (1.7-4.1); Glucose 82 mg/dL (80-110); HEMOLYSIS < 15 (0-50); Potassium 4.5 mmol/L (3.4-5.1); Sodium 140 mmol/L (137-145); Total Protein 6.7 g/dL (6.3-8.2)
[2023-12-09 12:40] LABS: Rheumatoid Factor < 8.6 IU/mL (<12.0)
[2023-12-09 12:42] LABS: Erythrocyte Sedimentation Rate 7 MM/HR (0-20)
[2023-12-13 18:43] LABS: CCP Antibodies IgG/IgA 0 units (0-19)
[2023-12-14 17:44] LABS: ANA Screen, IFA Positive (.)
== END ==
LOC: LAB 10:50
PROVIDERS: Family Provider Family Medicine; PCP Family Medicine; Referring Provider Family Medicine; Visit Provider Family Medicine
DX: M54.2 Cervicalgia (principal); M19.039 Primary osteoarthritis, unspecified wrist
CPT/HCPCS: 36415; 80053; 85651; 86038; 86200; 86430

== ENCOUNTER → 2024-02-08 08:27 | Outpatient (CLI) | payer OTHER, SELFPAY ==
[2024-02-08 10:45] LABS: Lithium 0.6 mmol/L (0.6-1.2)
== END ==
PROVIDERS: Family Provider Family Medicine; PCP Family Medicine; Referring Provider Psychiatry & Neurology Psychiatry; Visit Provider Psychiatry & Neurology Psychiatry
DX: Z79.899 Other long term (current) drug therapy (principal)
CPT/HCPCS: 36415; 80178

== ENCOUNTER 2024-09-01 08:35 | Emergency (ER) | payer OTHER, SELFPAY ==
[2024-09-01 08:44] VITALS: BP 186/90; PULSE 88; RESP 17; TEMP 36.6; O2SAT 96; BMI 23.3
--- NOTE | 2024-09-01 09:48 | EKG_ITS ---
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
[2024-09-01 09:49] LABS: Add Manual Diff / Slide Review NO; Basophils Absolute Auto 100 /uL (0-100); Basophils Percent Auto 0.8 % (0-2); Eosinophils Absolute Auto 0 /uL (0-450); Eosinophils Percent Auto 0.2 % (2-4); Hematocrit 42.1 % (36-46); Hemoglobin 13.9 g/dL (12.0-16.0); Lymphocytes Absolute Auto 1400 /uL (1100-4500); Mean Corpuscular Hemoglobin 31.7 PG (26-34); Monocytes Absolute Auto 700 /uL (0-900); Monocytes Percent Auto 4.2 % (3-14); Neutrophils Absolute Auto 13700 /uL (1500-7000); Neutrophils Percent Auto 85.8 % (50-75); Platelet Count 371 X10^3/uL (150-400); Red Blood Cell Count 4.39 X10^6/uL (4.0-5.2); Red Cell Distribution Width 12.5 % (11.6-14.8); White Blood Cell Count 15.9 X10^3/uL (4.5-11.0)
[2024-09-01 09:58] LABS: Alanine Aminotransferase 27 IU/L (<35); Albumin 4.5 g/dL (3.5-5.0); Albumin Globulin Ratio 1.8 (1.0-2.8); Alkaline Phosphatase 109 U/L (38-126); Aspartate Aminotransferase 28 IU/L (14-36); Bilirubin Total 0.6 mg/dL (0.2-1.3); Blood Urea Nitrogen 13 mg/dL (7-17); Carbon Dioxide 24 mmol/L (22-32); Chloride 107 mmol/L (98-107); Creatine Kinase 96 U/L (30-135); Estimated Glomerular Filt Rate > 60 mL/min (>60); Globulin 2.5 g/dL (1.7-4.1); Glucose 110 mg/dL (80-110); HEMOLYSIS < 15 (0-50); Lipase 90 U/L (23-300); Magnesium 1.8 mg/dL (1.6-2.3); Potassium 3.7 mmol/L (3.4-5.1); Sodium 140 mmol/L (137-145)
[2024-09-01 10:10] LABS: Troponin I < 0.012 ng/mL (0.01-0.034)
[2024-09-01 10:30] LABS: Thyroid Stimulating Hormone 0.957 uIU/mL (0.47-4.68)
--- NOTE | 2024-09-01 12:47 | ED_ITS ---
HPI - General Adult General Chief complaint: Hypertension Stated complaint: Hypertension Time Seen by Provider: 09/01/24 09:03 Source: patient and EMS Mode of arrival: EMS History of Present Illness HPI narrative: Patient was a 74-year-old female. Over the past couple days she states she was had issues with hypertension. No prior history of hypertension. Also reports that she has been having times where she was waking up from sleep at night. Some blurry vision but no headache. No chest pain. No shortness of breath. She contacted her primary doctor but could not get seen until later this week. She took her blood pressure this morning and had a systolic in the 180s which brought her to the emergency department for further evaluation. She did recently stop her bupropion what she was taking for seasonal affective disorder. Related Data Home Medications Medication Instructions Recorded Confirmed fluticasone 500 mcg-salmeterol 50 ea inhalation 09/16/22 11/07/23 mcg/dose blistr powdr for inhalation ([place] Inhyissel) Previous Rx's Medication Instructions Recorded maraviroc 300 mg tablet 300 mg PO BID #60 tabs 11/07/23 pravastatin 10 mg tablet 10 mg PO DAILY #30 tabs 11/07/23 gabapentin 300 mg capsule See Rx Instructions PO BEDTIME #60 12/19/23 caps atorvastatin 40 mg tablet See Rx Instructions .Route 03/26/24 .COMPLEX #90 tabs bupropion HCl 150 mg 24 hr tablet, 300 mg (2 x 150 mg) PO QAM #180 06/13/24 extended release tabs lithium carbonate 300 mg tablet 600 mg (2 x 300 mg) PO HS #180 tabs 06/13/24 Allergies Allergy/AdvReac Type Severity Reaction Status Date / Time erythromycin base Allergy Severe anaphalaxic Verified 11/07/23 09:33 [ERYTHROMYCIN BASE] Penicillins [PENICILLINS] Allergy Severe anaphalatic Verified 11/07/23 09:33 latex Allergy Intermediate rash Verified 11/07/23 09:33 most antibiotics Allergy Unknown Uncoded 11/07/23 09:33 Review of Systems Review of Systems ROS Unobtainable: All systems reviewed & are unremarkable except as noted in HPI and below Patient History Medical History Neck pain Medicare annual wellness visit, subsequent Well adult exam Hypertension Chronic cough (~09/26/23) Hip pain, left Bronchitis History of colon polyps Encounter for Medicare annual wellness exam Migraine aura without headache Bipolar disorder, in full remission, most recent episode manic Bipolar depression GERD (gastroesophageal reflux disease) Hyperlipemia Bipolar disorder (1991) Chronic back pain (2013) Migraines (1989) Shoulder pain (2014) Rosacea (1989) Chickenpox (1951) Measles (1952) Mumps (1953) Herpes (1971) Fecal incontinence (2014) Peptic ulcer disease (2015) Surgical History History of carpal tunnel release (2009) Hx of hernia repair (1977) History of splenectomy (1974) Status post hysterectomy (2004) History of tonsillectomy (1967) Family History Father Bipolar affective disorder Stroke Mother Age: 100 Diverticular disease Grandfather Cancer Grandmother No problems noted. Grandfather Alcoholism Grandmother No problems noted. Sister Non Hodgkin's lymphoma Social History household members: none Smoking Status: Never smoker alcohol intake: current Smoking Status: Never smoker alcohol intake frequency: 0-2 drinks per day Exam Initial Vital Signs Initial Vital Signs: Vital Signs Temperature 97.8 F 09/01/24 08:44 Pulse Rate 88 09/01/24 08:44 Respiratory Rate 17 09/01/24 08:44 Blood Pressure 186/90 H 09/01/24 08:44 Pulse Oximetry 96 09/01/24 08:44 Oxygen Delivery Method Room Air 09/01/24 08:44 Const General: cooperative, comfortable and No ill appearing HENKS Head: normal to inspection and normocephalic Resp Effort & Inspection: normal respiratory effort Auscultation: clear to auscultation bilaterally Cardio Rate: regular rate Rhythm: regular rhythm GI Inspection: normal to inspection Skin General: no rashes or lesions noted Neuro General: patient alert, patient awake, patient oriented x3 and moves all extremities Extrem General: capillary refill normal Course Orders Ordered: ED Orders 09/01/24 09:04 EKG-12 Lead Stat 09/01/24 09:40 Complete Blood Count AUTO DIFF Stat Comprehensive Metabolic Panel Stat Lipase Stat Magnesium Stat Thyroid Stimulating Hormone Stat Troponin & CK Cardiac Panel Stat Vital Signs Vital signs: Vital Signs - 8 hr 09/01/24 08:44 Temperature 97.8 F Pulse Rate 88 Respiratory Rate 17 Blood Pressure 186/90 H Pulse Oximetry 96 Oxygen Delivery Method Room Air Medical Decision Making Lab Data Lab results reviewed: Yes I reviewed the patient's lab results. 09/01/24 09:40 09/01/24 09:40 Labs: Lab Results 09/01/24 Range/Units 09:40 WBC 15.9 H (4.5-11.0) X10^3/uL RBC 4.39 (4.0-5.2) X10^6/uL Hgb 13.9 (12.0-16.0) g/dL Hct 42.1 (36-46) % MCV 96.0 (80-100) fL MCH 31.7 (26-34) PG MCHC 33.0 (30-36) % RDW 12.5 (11.6-14.8) % Plt Count 371 (150-400) X10^3/uL Neut % (Auto) 85.8 H (50-75) % Lymph % (Auto) 9.0 L (25-40) % [place] % (Auto) 4.2 (3-14) % Eos % (Auto) 0.2 L (2-4) % Baso % (Auto) 0.8 (0-2) % Neut # (Auto) 88283 H (5894-8942) /uL Lymph # (Auto) 1400 (2801-0162) /uL [place] # (Auto) 700 (0-900) /uL Eos # (Auto) 0 (0-450) /uL Baso # (Auto) 100 (0-100) /uL Sodium 140 (137-145) mmol/L Potassium 3.7 (3.4-5.1) mmol/L Chloride 107 (98-107) mmol/L Carbon Dioxide 24 (22-32) mmol/L BUN 13 (7-17) mg/dL Creatinine 0.65 (0.52-1.04) mg/dL Estimated GFR > 60 (>60) mL/min BUN/Creatinine Ratio 20.0 (6-22) Glucose 110 (80-110) mg/dL Calcium 10.0 (8.4-10.2) mg/dL Magnesium 1.8 (1.6-2.3) mg/dL Total Bilirubin 0.6 (0.2-1.3) mg/dL AST 28 (14-36) IU/L ALT 27 (<35) IU/L Alkaline Phosphatase 109 (38-126) U/L Total Creatine Kinase 96 (30-135) U/L Troponin I < 0.012 (0.01-0.034) ng/mL Total Protein 7.0 (6.3-8.2) g/dL Albumin 4.5 (3.5-5.0) g/dL Globulin 2.5 (1.7-4.1) g/dL Albumin/Globulin Ratio 1.8 (1.0-2.8) Lipase 90 (23-300) U/L TSH 0.957 (0.47-4.68) uIU/mL ECG Data Attestation: I personally reviewed and interpreted this ECG as follows: Interpretation: Sinus rhythm Ventricular rate is 79 Normal axis Normal QRS No ST T wave changes MDM Narrative Medical decision making narrative: Patient does have leukocytosis but no specific source of infection found. Will hold on any antibiotics for now. Has been hypertensive but it was not in acute renal failure, low suspicion for CVA, TIA, ACS. We did discuss blood pressure. Discussed that she should take her blood pressure at home and contact her primary doctor about a follow-up to see whether or not they need to start any medications. We also discussed the need for a Holter monitor. Patient expressed understanding and agreement with the plan. Discharge Plan Departure Patient Disposition: Home Clinical Impression: Hypertension Instructions: DI for High Blood Pressure Activity Restrictions/Additional Instructions: Continue to take all of your medications as directed. I do recommend that you continue to take your blood pressure at home and record the results and follow up with your primary care doctor to discuss the results to see whether or not you need to start blood pressure medications. Return to the emergency department for new symptoms. Prescriptions: No Action gabapentin 300 mg capsule See Rx Instructions PO BEDTIME Qty: 60 3RF Rx Instructions: one or two capsules (300 to 600 mg orally bedtime; bupropion HCl 150 mg tablet extended release 24 hr 300 mg PO QAM Qty: 180 3RF lithium carbonate 300 mg tablet 600 mg PO HS Qty: 180 3RF atorvastatin 40 mg tablet See Rx Instructions .ROUTE .COMPLEX Qty: 90 3RF Dose Instruction: TAKE 1 TABLET BY MOUTH AT BEDTIME Rx Instructions: TAKE 1 TABLET BY MOUTH AT BEDTIME fluticasone propion-salmeterol [[place] Inhub] 500-50 mcg/dose blister with device inhalation maraviroc 300 mg tablet 300 mg PO BID Qty: 60 0RF pravastatin 10 mg tablet 10 mg PO DAILY Qty: 30 0RF Rx Instructions: do not take any other statin with this medication Referrals: Angel Ugalde DO [Primary Care Provider] - Stand Alone Forms: Patient Portal/API/Survey
[2024-09-01 12:50] VITALS: BP 166/98; PULSE 87; O2SAT 99
== END 2024-09-01 12:54 | disposition home or self-care (01) ==
PROVIDERS: Emergency Provider Emergency Medicine; Family Provider Family Medicine; PCP Family Medicine
DX: I10 Essential (primary) hypertension (principal)
CPT/HCPCS: 36415; 80053; 82550; 83690; 83735; 84443; 84484; 85025; 93005; 99283; 99284

== ENCOUNTER 2024-10-04 11:11 | Emergency (ER) | payer OTHER, SELFPAY ==
[2024-10-04 11:18] VITALS: BP 153/92; PULSE 100; RESP 18; TEMP 36.4; O2SAT 98; BMI 25.0
--- NOTE | 2024-10-04 11:33 | ED.HA ---
HPI - Headache General Chief Complaint: Headache Stated Complaint: giant cell arteritis per pt Time Seen by Provider: 10/04/24 11:26 Source: patient, RN notes reviewed and old records reviewed Mode of arrival: Ambulatory Limitations: no limitations History of Present Illness HPI Narrative: 74-year-old female history of dyslipidemia, hypertension, migraines patient presents with complaint of headache for the past 10 days. Patient states she does have a history of migraines she states it does not feel like a migraine although it tire out for a day or 2. She states not the worst headache of her life. Gradual onset no sudden thunderclap headache. Patient states no fevers no infectious symptoms. She describes headache has been little bit temporal also having a lot of tightness in the muscles of her neck on each side. She noticed little bit of double vision about a week ago has not had it persistently. Had 1 evening while watching TV thought she was tired and went to bed. Denies any nausea or vomiting. No chest pain or shortness of breath. No other GI or urinary symptoms. No numbness tingling weakness or difficulty with movement or speech. Patient notes her mom had giant cell arteritis was concerned that might be what is going on. She was not had any vision loss. She did take a dose of what sounds like Fioricet and had some improvement. Patient states she takes a statin daily as well as amlodipine. Related Data Previous Rx's Medication Instructions Recorded maraviroc 300 mg tablet 300 mg PO BID #60 tabs 11/07/23 gabapentin 300 mg capsule See Rx Instructions PO BEDTIME #60 12/19/23 caps atorvastatin 40 mg tablet See Rx Instructions .Route 03/26/24 .COMPLEX #90 tabs lithium carbonate 300 mg tablet 600 mg (2 x 300 mg) PO HS #180 tabs 06/13/24 amlodipine 2.5 mg tablet 2.5 mg PO BEDTIME #30 tabs 09/04/24 Allergies Allergy/AdvReac Type Severity Reaction Status Date / Time erythromycin base Allergy Severe anaphalaxic Verified 09/04/24 10:26 [ERYTHROMYCIN BASE] Penicillins [PENICILLINS] Allergy Severe anaphalatic Verified 09/04/24 10:26 latex Allergy Intermediate rash Verified 09/04/24 10:26 most antibiotics Allergy Unknown Uncoded 09/04/24 10:26 Review of Systems Review of Systems ROS Unobtainable: All systems reviewed & are unremarkable except as noted in HPI and below Patient History Medical History Neck pain Medicare annual wellness visit, subsequent Well adult exam Hypertension Chronic cough (~09/26/23) Hip pain, left Bronchitis History of colon polyps Encounter for Medicare annual wellness exam Migraine aura without headache Bipolar disorder, in full remission, most recent episode manic Bipolar depression GERD (gastroesophageal reflux disease) Hyperlipemia Bipolar disorder (1991) Chronic back pain (2013) Migraines (1989) Shoulder pain (2014) Rosacea (1989) Chickenpox (1951) Measles (1952) Mumps (1953) Herpes (1971) Fecal incontinence (2014) Peptic ulcer disease (2015) Surgical History History of carpal tunnel release (2009) Hx of hernia repair (1977) History of splenectomy (1974) Status post hysterectomy (2004) History of tonsillectomy (1967) Family History Father Bipolar affective disorder Stroke Mother Age: 100 Diverticular disease Grandfather Cancer Grandmother No problems noted. Grandfather Alcoholism Grandmother No problems noted. Sister Non Hodgkin's lymphoma Social History household members: none Smoking Status: Never smoker alcohol intake: current Smoking Status: Never smoker alcohol intake frequency: 0-2 drinks per day Exam Narrative Exam Narrative: GEN: well nourished, well appearing female, alert and oriented x 3, patient appears to be in no acute distress. HEENT: Atraumatic, pupils are equal round reactive to light, extraocular movements are intact, mild tenderness left temporal, nares are clear, there is no conjunctival pallor. Throat is clear without any exudates, erythema, tonsillar enlargement or uvular deviation, no facial droop. HEART: Regular rate and rhythm without murmur, clicks, rubs. Pulses are equal in upper and lower extremities LUNGS:Lungs clear to auscultation, no wheezes, rales, crackles, chest moves symmetrically ABD:bowel sounds normal, soft, non-tender, no guarding, rebound, rigidity, no masses noted, no hepatosplenomegaly :No CVA tenderness MSCL: Non-tender, no muscle atrophy, muscles strength 5/5 upper and lower extremities, full range of motion, normal gait NEURO:CN 2-12 intact, sensation normal. SKIN: No rash, erythema or other skin changes noted Initial Vital Signs Initial Vital Signs: Vital Signs Temperature 97.6 F 10/04/24 11:18 Pulse Rate 100 H 10/04/24 11:18 Respiratory Rate 18 10/04/24 11:18 Blood Pressure 153/92 H 10/04/24 11:18 Pulse Oximetry 98 10/04/24 11:18 Oxygen Delivery Method Room Air 10/04/24 11:18 Course Orders Ordered: ED Orders 10/04/24 12:20 CT angio head and neck Stat CT head/brain wo con Stat 10/04/24 14:00 CBC Auto Diff [Complete Blood Count AUTO DIFF] Stat CMP [Comprehensive Metabolic Panel] Stat CRP [C-Reactive Protein Quant] Stat ESR [Erythrocyte Sedimentation Rate] Stat Vital Signs Vital signs: Vital Signs - 8 hr 10/04/24 11:18 10/04/24 15:21 Temperature 97.6 F Pulse Rate 100 H 83 Respiratory Rate 18 18 Blood Pressure 153/92 H 141/91 H Pulse Oximetry 98 98 Oxygen Delivery Method Room Air Room Air MDM - Headache Lab Data 10/04/24 14:00 10/04/24 14:00 Labs: Lab Results 10/04/24 Range/Units 14:00 WBC 12.7 H (4.5-11.0) X10^3/uL RBC 4.22 (4.0-5.2) X10^6/uL Hgb 13.6 (12.0-16.0) g/dL Hct 40.5 (36-46) % MCV 95.9 (80-100) fL MCH 32.1 (26-34) PG MCHC 33.5 (30-36) % RDW 12.5 (11.6-14.8) % Plt Count 392 (150-400) X10^3/uL Neut % (Auto) 69.9 (50-75) % Lymph % (Auto) 24.1 L (25-40) % [place] % (Auto) 4.3 (3-14) % Eos % (Auto) 0.6 L (2-4) % Baso % (Auto) 1.1 (0-2) % Neut # (Auto) 8900 H (8712-9736) /uL Lymph # (Auto) 3100 (6466-2904) /uL [place] # (Auto) 500 (0-900) /uL Eos # (Auto) 100 (0-450) /uL Baso # (Auto) 100 (0-100) /uL ESR 5 (0-20) MM/HR Sodium 139 (137-145) mmol/L Potassium 4.0 (3.4-5.1) mmol/L Chloride 106 (98-107) mmol/L Carbon Dioxide 24 (22-32) mmol/L BUN 18 H (7-17) mg/dL Creatinine 0.62 (0.52-1.04) mg/dL Estimated GFR > 60 (>60) mL/min BUN/Creatinine Ratio 29.0 H (6-22) Glucose 88 (80-110) mg/dL Calcium 10.0 (8.4-10.2) mg/dL Total Bilirubin 0.5 (0.2-1.3) mg/dL AST 36 (14-36) IU/L ALT 41 H (<35) IU/L Alkaline Phosphatase 123 (38-126) U/L C-Reactive Protein < 0.5 (<1.0) mg/dL Total Protein 6.7 (6.3-8.2) g/dL Albumin 4.5 (3.5-5.0) g/dL Globulin 2.2 (1.7-4.1) g/dL Albumin/Globulin Ratio 2.0 (1.0-2.8) MDM Narrative Medical decision making narrative: Discussed with the patient was had headache for about 10 days, describes it as temporal also notes some muscle tightness and discomfort no trauma, no other injuries denies thunderclap, worst headache of her life for other red flag changes but does have some concern for temporal arteritis discomforts over the temples, did have a brief episode of diplopia about a week ago. Patient otherwise well-appearing, no neurologic changes on exam or recently. Labs patient was some white count of 12.7, hemoglobin 13.6 platelets are 392. Chemistries are appropriate BUN 8 creatinine 0.62 glucose is 88 calcium 10 ALT is 41 AST bilirubin are normal C-reactive protein is less than 0.[address] with a ESR of [address] shows no acute change. CT head and neck angio shows no significant intracranial arterial abnormality of the head or neck. Discussed findings with the patient imaging is overall reassuring labs are reassuring in terms of giant cell arteritis patient is not particularly tender over that area I would have her follow-up for rechecked but do not feel that I would initiate steroids at this time. Discussed findings with the patient I would have her follow up as she has had persistent headache but felt appropriate for discharge at this time. Patient does note a lot of muscle tissue tightness particularly of the neck muscles so I would recommend gentle range of motion. Discharge Plan Departure Patient Disposition: Home Clinical Impression: Headache Instructions: DI for Headache Activity Restrictions/Additional Instructions: Follow up for recheck with your physician, at this time your labs and imaging are overall reassuring. Would also recommend follow up with Ophthalmology for further evaluation as she did have a brief period of double vision there are multiple potential causes for this. Please return for severe headaches, fevers, sudden vision changes, new chest pain or shortness of breath, persistent vomiting, new numbness, tingling or weakness, difficulty with speech, you could not episodes of double vision or other new or concerning changes. Prescriptions: No Action gabapentin 300 mg capsule See Rx Instructions PO BEDTIME Qty: 60 3RF Rx Instructions: one or two capsules (300 to 600 mg orally bedtime; lithium carbonate 300 mg tablet 600 mg PO HS Qty: 180 3RF atorvastatin 40 mg tablet See Rx Instructions .ROUTE .COMPLEX Qty: 90 3RF Dose Instruction: TAKE 1 TABLET BY MOUTH AT BEDTIME Rx Instructions: TAKE 1 TABLET BY MOUTH AT BEDTIME amlodipine 2.5 mg tablet 2.5 mg PO BEDTIME Qty: 30 2RF maraviroc 300 mg tablet 300 mg PO BID Qty: 60 0RF Referrals: Angel Ugalde, [Primary Care Provider] - Stand Alone Forms: Patient Portal/API/Survey
--- NOTE | 2024-10-04 12:20 | DI.CT.S_ITS ---
PROCEDURE: CT ANGIO HEAD AND NECK INDICATIONS: chandra x 10 days, double vision 1week ago, pt ? giant cell arter TECHNIQUE: After the administration of intravenous contrast, 1 mm thick sections acquired from the aortic arch through the [place] of [place]. 3-dimensional ngiyuzo-aktjpzlva-eplutjggfv (MIP) and/or volume rendering reformats were acquired of the central intracranial vasculature and neck separately. For radiation dose reduction, the following was used: automated exposure control, adjustment of mA and/or kV according to patient size. COMPARISON: [facility], CT, CT HEAD/BRAIN WO CON, 10/04/2024, 12:44. FINDINGS: Image quality: Limited by bolus timing, with venous contamination. A percutaneously placed aortic valve replacement can be seen. There is streak artifact seen through the level of the shoulders. BRAIN: CSF spaces: Ventricles are normal in size and shape. Basal cisterns are patent. No extra-axial fluid collections. Brain: No significant abnormality of the brain can be seen. Skull and face: Calvarium and facial bones appear intact, without suspicious lesions. Orbits appear normal. Sinuses: Sinuses and mastoids are clear. HEAD CT ANGIOGRAPHY: Anterior circulation: Intracranial internal carotid arteries are normal in size and flow. The flow within the paired anterior cerebral arteries is normal and symmetric. The flow within the middle cerebral arteries is normal and symmetric. The anterior communicating artery is seen. No aneurysms are seen. Posterior circulation: Visualized portions of the vertebral arteries demonstrate normal caliber, and join to form a normal appearing basilar artery. Flow within the posterior cerebral arteries is normal and symmetric. No aneurysms are seen. NECK CT ANGIOGRAPHY: Carotid system: The great vessels demonstrate a conventional anatomy as they arise from the aortic arch. The origins of the common carotid arteries appear patent. The common carotid arteries demonstrate normal caliber and courses. The bifurcation regions are both widely patent. The internal carotid arteries demonstrate normal calibers and courses. Posterior circulation: The origins of the vertebral arteries both appear widely patent. The more superior extracranial portions of both vertebral arteries also demonstrate normal courses and calibers. They join to form a normal appearing basilar artery. Soft tissues: Visualized neck soft tissues demonstrate no suspicious abnormalities. Bones: No suspicious bony lesions. Visualized cervical spine appears normally aligned. IMPRESSION: No imaging explanation is found for this patient's presenting symptoms. No significant intracranial arterial abnormality is seen. No significant abnormality is seen within the arteries of the neck. Any quantitative measurements of stenosis were performed using NASCET criteria. Dictated by: Sarkis Rodriguez M.D. on 10/04/2024 at 12:15 Approved by: Sarkis Rodriguez M.D. on 10/04/2024 at 12:17
--- NOTE | 2024-10-04 12:20 | DI.CT.S_ITS ---
PROCEDURE: CT HEAD/BRAIN WO CON INDICATIONS: chandra x 10 days, double vision 1week ago, pt ? giant cell arter TECHNIQUE: Noncontrast 4.5 mm thick angled axial sections acquired from the foramen magnum to the vertex, with coronal and sagittal reformats. For radiation dose reduction, the following was used: automated exposure control, adjustment of mA and/or kV according to patient size. COMPARISON: [facility], CT, CT ANGIO HEAD AND NECK, 10/04/2024, 12:44. FINDINGS: Image quality: Diagnostic. CSF spaces: Basal cisterns are patent. No extra-axial fluid collections. The ventricles are symmetric in size and shape. Brain: No intracranial bleeds or masses. There is cerebral volume loss for age, with resultant ventricular and sulcal prominence. There are periventricular and deep white matter chronic small vessel ischemic changes. There is intracranial internal carotid artery atherosclerosis. Skull and face: Calvarium and visualized facial bones appear intact, without suspicious lesions. Incidental note is made of hyperostosis frontalis. This is not considered to be pathologic in a woman of this age. Sinuses: Visualized sinuses and mastoids are clear. IMPRESSION: Unremarkable noncontrast head CT for age. Dictated by: Sarkis Rodriguez M.D. on 10/04/2024 at 12:14 Approved by: Sarkis Rodriguez M.D. on 10/04/2024 at 12:15
[2024-10-04 14:10] LABS: Add Manual Diff / Slide Review NO; Basophils Absolute Auto 100 /uL (0-100); Basophils Percent Auto 1.1 % (0-2); Eosinophils Absolute Auto 100 /uL (0-450); Eosinophils Percent Auto 0.6 % (2-4); Hematocrit 40.5 % (36-46); Hemoglobin 13.6 g/dL (12.0-16.0); Lymphocytes Absolute Auto 3100 /uL (1100-4500); Lymphocytes Percent Auto 24.1 % (25-40); Mean Corpuscular HGB Conc 33.5 % (30-36); Mean Corpuscular Hemoglobin 32.1 PG (26-34); Mean Corpuscular Volume 95.9 fL (80-100); Monocytes Absolute Auto 500 /uL (0-900); Monocytes Percent Auto 4.3 % (3-14); Neutrophils Absolute Auto 8900 /uL (1500-7000); Neutrophils Percent Auto 69.9 % (50-75); Platelet Count 392 X10^3/uL (150-400); Red Blood Cell Count 4.22 X10^6/uL (4.0-5.2); Red Cell Distribution Width 12.5 % (11.6-14.8); White Blood Cell Count 12.7 X10^3/uL (4.5-11.0)
[2024-10-04 14:24] LABS: C-Reactive Protein Quant < 0.5 mg/dL (<1.0)
[2024-10-04 14:37] LABS: Alanine Aminotransferase 41 IU/L (<35); Albumin 4.5 g/dL (3.5-5.0); Alkaline Phosphatase 123 U/L (38-126); Aspartate Aminotransferase 36 IU/L (14-36); Bilirubin Total 0.5 mg/dL (0.2-1.3); Blood Urea Nitrogen 18 mg/dL (7-17); Carbon Dioxide 24 mmol/L (22-32); Chloride 106 mmol/L (98-107); Estimated Glomerular Filt Rate > 60 mL/min (>60); Globulin 2.2 g/dL (1.7-4.1); Glucose 88 mg/dL (80-110); HEMOLYSIS < 15 (0-50); Sodium 139 mmol/L (137-145); Total Protein 6.7 g/dL (6.3-8.2)
[2024-10-04 15:21] VITALS: BP 141/91; PULSE 83; RESP 18; O2SAT 98
[2024-10-04 15:48] LABS: Erythrocyte Sedimentation Rate 5 MM/HR (0-20)
== END 2024-10-04 16:23 | disposition home or self-care (01) ==
PROVIDERS: Emergency Provider Emergency Medicine; Family Provider Family Medicine; PCP Family Medicine
DX: R51.9 Headache, unspecified (principal); E78.5 Hyperlipidemia, unspecified; I10 Essential (primary) hypertension
CPT/HCPCS: 70450; 70496; 70498; 80053; 85025; 85651; 86140; 99281; 99285; Q9967

== ENCOUNTER 2024-10-21 11:42 | Emergency (ER) | payer OTHER, SELFPAY ==
--- NOTE | 2024-10-21 | DI.RAD.S_ITS ---
PROCEDURE: XR ANKLE RT MIN 3V INDICATIONS: LATERAL RIGHT ANKLE PAIN TECHNIQUE: 3 views of the ankle were acquired. COMPARISON: [facility], CR, XR FOOT RT MIN 3V, 06/25/2022, 13:46. [facility], CR, XR WRIST RT MIN 3V, 10/21/2024, 12:19. [facility], CR, XR HAND RT MIN 3V, 10/21/2024, 12:19. FINDINGS: Bones: No fractures or dislocations. Ankle mortise is normally aligned. No suspicious bony lesions. The talar dome demonstrates no ted abnormality. Age-appropriate bony degenerative changes are seen. A plantar calcaneal spur is seen. Incidental note is made of an accessory ossicle, an os trigonum. Soft tissues: No tibiotalar joint effusion. Achilles tendon appears normal. IMPRESSION: No imaging explanation is found for this patient's presenting symptoms. Underlying degenerative changes are seen. If it would be helpful for clinical management decision making, please consider a dedicated, scheduled ankle MRI for further evaluation (assuming that there is no contraindication). Dictated by: Sarkis Rodriguez M.D. on 10/21/2024 at 12:26 Approved by: Sarkis Rodriguez M.D. on 10/21/2024 at 12:27
[2024-10-21 12:15] VITALS: BP 165/93; PULSE 71; RESP 16; TEMP 37.1; O2SAT 97; BMI 23.9
--- NOTE | 2024-10-21 12:21 | DI.RAD.S_ITS ---
PROCEDURE: XR WRIST RT MIN 3V INDICATIONS: fall; right wrist swelling TECHNIQUE: 4 views of the wrist were acquired. COMPARISON: [facility], CR, XR ANKLE RT MIN 3V, 10/21/2024, 12:31. [facility], CR, XR WRIST LT MIN 3V, 06/16/2018, 9:14. [facility], CR, XR HAND RT MIN 3V, 10/21/2024, 12:19. FINDINGS: Bones: Plate and screw fixation can be seen of the distal radius. No findings of hardware failure or hardware loosening are seen. There is a remote fracture of the distal radius. Generalized degenerative changes are seen, which are worst involving the radial aspect of the carpus. No acute fractures or dislocations. No suspicious bony lesions. Soft tissues: No suspicious soft tissue calcifications. Generalized soft tissue swelling is seen. IMPRESSION: Prior postoperative change, without an acute abnormality seen on these plain films. Underlying degenerative changes are seen, which are worst involving the radial aspect of the carpus. Dictated by: Sarkis Rodriguez M.D. on 10/21/2024 at 12:22 Approved by: Sarkis Rodriguez M.D. on 10/21/2024 at 12:23
--- NOTE | 2024-10-21 12:21 | DI.RAD.S_ITS ---
PROCEDURE: XR HAND RT MIN 3V INDICATIONS: fall; right wrist swelling TECHNIQUE: 3 views of the hand(s) acquired. COMPARISON: None. FINDINGS: Bones: No fractures or dislocations. Carpal bones are normally aligned. No suspicious bony lesions. Distal radius hardware is partially seen. Degenerative changes are seen throughout, which are most prominent involving the 1st carpometacarpal joint. Milder degenerative changes are seen elsewhere. Soft tissues: Generalized soft tissue swelling is seen. IMPRESSION: No acute plain film abnormality is identified. Postoperative and degenerative changes are seen. Dictated by: Sarkis Rodriguez M.D. on 10/21/2024 at 12:24 Approved by: Sarkis Rodriguez M.D. on 10/21/2024 at 12:25
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
[2024-10-21 14:34] VITALS: BP 158/77; PULSE 74; RESP 16; O2SAT 98
== END 2024-10-21 14:34 | disposition home or self-care (01) ==
PROVIDERS: Emergency Provider Physician Assistant; Family Provider Family Medicine; PCP Family Medicine
DX: S63.501A Unspecified sprain of right wrist, initial encounter (principal); S96.911A Strain of unspecified muscle and tendon at ankle and foot level, right foot, initial encounter; M25.562 Pain in left knee; W19.XXXA Unspecified fall, initial encounter
CPT/HCPCS: 29125; 73110; 73130; 73610; 99283

== ENCOUNTER 2025-01-01 10:25 | Emergency (ER) | payer OTHER, SELFPAY ==
[2025-01-01] VITALS (8 sets, daily range): BP systolic 145–162; BP diastolic 76–94; PULSE 74–110; RESP 17–27; TEMP 36.9; O2SAT 96–98; BMI 24.2
--- NOTE | 2025-01-01 10:27 | EKG_ITS ---
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
--- NOTE | 2025-01-01 10:27 | DI.RAD.S_ITS ---
PROCEDURE: XR CHEST 1V INDICATIONS: Chest Pain TECHNIQUE: One view of the chest was acquired. COMPARISON: [facility], CR, XR CHEST 1V, 12/17/2021, 9:32. FINDINGS: Surgical changes and devices: None. Lungs and pleura: Lungs are clear. No pleural effusions or pneumothorax. Mediastinum: Mediastinal contours appear normal. Heart size is normal. Bones and chest wall: No suspicious bony lesions. Overlying soft tissues appear unremarkable. IMPRESSION: No acute cardiopulmonary process. Dictated by: Aminta Armenta M.D. on 01/01/2025 at 10:59 Approved by: Aminta Armenta M.D. on 01/01/2025 at 10:59
--- NOTE | 2025-01-01 10:47 | ED_ITS ---
HPI - Arrhythmia/Palpitations General Chief Complaint: Arrhythmia/Palpitations Stated Complaint: Rapid Pulse 4 days Time Seen by Provider: 01/01/25 10:31 Source: patient Mode of arrival: Ambulatory History of Present Illness HPI narrative: Patient here for palpitations. No chest pain shortness of breath. Heart rate noted on monitor is in sinus rhythm. Patient is on amlodipine 2.5 mg nightly, family doctor started her on this August 30, 2024. She does provide a blood pressure journal. It has been managed very well until recently in the past week. Her blood pressure has increased. Denies any syncope headache numbness tingling or weakness. No black or bloody stools. Denies any thyroid disease. Patient denies any changes in her medications otherwise. No recent illness. No prior history of arrhythmia. Related Data Previous Rx's Medication Instructions Recorded gabapentin 300 mg capsule See Rx Instructions PO BEDTIME #60 12/19/23 caps lithium carbonate 300 mg tablet 600 mg (2 x 300 mg) PO HS #180 tabs 06/13/24 amlodipine 2.5 mg tablet 2.5 mg PO BEDTIME #90 tabs 10/19/24 atorvastatin 40 mg tablet See Rx Instructions .Route 10/19/24 .COMPLEX #90 tabs Allergies Allergy/AdvReac Type Severity Reaction Status Date / Time erythromycin base Allergy Severe anaphalaxic Verified 10/21/24 12:15 [ERYTHROMYCIN BASE] Penicillins [PENICILLINS] Allergy Severe anaphalatic Verified 10/21/24 12:15 latex Allergy Intermediate rash Verified 10/21/24 12:15 most antibiotics Allergy Unknown Uncoded 10/21/24 12:15 Review of Systems Review of Systems Narrative: GENERAL: Negative chills, fatigue, malaise, fever, sweats. HEENT: Negative sinus pain, ear pain, sore throat RESPIRATORY: Negative dyspnea, cough CARDIOVASCULAR: Negative chest pain, positive palpitations GASTROINTESTINAL: Negative vomiting, nausea, abdominal pain : Negative dysuria, frequency, hematuria MUSCULOSKELETAL: Negative muscle or bony pain SKIN: Negative rash, skin lesions NEUROLOGIC: Negative weakness, numbness Patient History Medical History Neck pain Medicare annual wellness visit, subsequent Well adult exam Hypertension Chronic cough (~09/26/23) Hip pain, left Bronchitis History of colon polyps Encounter for Medicare annual wellness exam Migraine aura without headache Bipolar disorder, in full remission, most recent episode manic Bipolar depression GERD (gastroesophageal reflux disease) Hyperlipemia Bipolar disorder (1991) Chronic back pain (2013) Migraines (1989) Shoulder pain (2014) Rosacea (1989) Chickenpox (1951) Measles (1952) Mumps (1953) Herpes (1971) Fecal incontinence (2015) Peptic ulcer disease (2015) Surgical History History of carpal tunnel release (2009) Hx of hernia repair (1977) History of splenectomy (1974) Status post hysterectomy (2004) History of tonsillectomy (1967) Family History Father Bipolar affective disorder Stroke Mother Age: 101 Diverticular disease Grandfather Cancer Grandmother No problems noted. Grandfather Alcoholism Grandmother No problems noted. Sister Non Hodgkin's lymphoma Social History household members: none Smoking Status: Never smoker alcohol intake: current Smoking Status: Never smoker alcohol intake frequency: 0-2 drinks per day Exam Narrative Exam Narrative: GENERAL: in no distress, not toxic not dyspneic HEAD: Normocephalic. EYES: Pupils equal round ENT: Mucous membranes moist. NECK: Trachea midline. CARDIOVASCULAR: Regular rate and rhythm, tachycardic RESPIRATORY: Clear to auscultation. Breath sounds equal bilaterally. No wheezes, rales, or rhonchi. GASTROINTESTINAL: Abdomen soft, non-tender EXTREMITIES: No gross deformities. BACK: No flank tenderness. NEURO: AOx4. Clear speech SKIN: Warm and dry PSYCH: Not anxious, is cooperative Initial Vital Signs Initial Vital Signs: Vital Signs Temperature 98.5 F 01/01/25 10:31 Pulse Rate 110 H 01/01/25 10:31 Respiratory Rate 18 01/01/25 10:31 Blood Pressure 162/94 H 01/01/25 10:31 Pulse Oximetry 98 01/01/25 10:31 Oxygen Delivery Method Room Air 01/01/25 10:31 Course Orders Ordered: ED Orders 01/01/25 10:27 XR chest 1V Stat Complete Blood Count AUTO DIFF Stat EKG-12 Lead Stat RT Consult Eval and Treat NOW 01/01/25 10:55 Comprehensive Metabolic Panel Stat D Dimer Stat Lactate (Lactic Acid) Stat Lipase Stat [place] Stat Magnesium Stat NT-proBNP (BNP-Adult 18+) Stat PTT Partial Thromboplastin Jayden Stat Prothrombin Time INR Stat TSH [Thyroid Stimulating Hormone] Stat Troponin & CK Cardiac Panel Stat Discontinued Medications Aspirin (Aspirin 81 Mg Chew Tab) 324 mg PO NOW ONE Stop: 01/01/25 10:28 Last Admin: 01/01/25 10:45 Dose: Not Given Documented By: Sodium Chloride (Normal Saline 0.9%) 1,000 mls @ 1,000 mls/hr IV BOLUS ONE Stop: 01/01/25 11:55 Last Infusion: 01/01/25 12:47 Dose: Infused Documented By: Admin: 01/01/25 11:25 Dose: 1,000 mls/hr Documented By: Vital Signs Vital signs: Vital Signs - 8 hr 01/01/25 10:31 01/01/25 11:04 01/01/25 11:30 Temperature 98.5 F Pulse Rate 110 H 87 Respiratory Rate 18 27 H Blood Pressure 162/94 H 145/76 H Pulse Oximetry 98 97 Oxygen Delivery Method Room Air 01/01/25 11:30 01/01/25 12:09 01/01/25 12:30 Temperature Pulse Rate 80 78 75 Respiratory Rate 19 17 Blood Pressure Pulse Oximetry 96 97 97 Oxygen Delivery Method 01/01/25 13:00 01/01/25 13:30 01/01/25 13:32 Temperature Pulse Rate 74 79 Respiratory Rate 20 Blood Pressure 156/79 H Pulse Oximetry 96 98 Oxygen Delivery Method Room Air 01/01/25 13:32 Temperature Pulse Rate 79 Respiratory Rate 22 Blood Pressure Pulse Oximetry Oxygen Delivery Method MDM - Arrhythmia/Palpitations Lab Data 01/01/25 10:27 01/01/25 10:55 Labs: Lab Results 01/01/25 01/01/25 Range/Units 10:27 10:55 WBC 13.8 H (4.5-11.0) X10^3/uL RBC 4.22 (4.0-5.2) X10^6/uL Hgb 13.7 (12.0-16.0) g/dL Hct 39.9 (36-46) % MCV 94.7 (80-100) fL MCH 32.4 (26-34) PG MCHC 34.2 (30-36) % RDW 12.7 (11.6-14.8) % Plt Count 367 (150-400) X10^3/uL Neut % (Auto) 85.1 H (50-75) % Lymph % (Auto) 11.3 L (25-40) % [place] % (Auto) 3.1 (3-14) % Eos % (Auto) 0.2 L (2-4) % Baso % (Auto) 0.3 (0-2) % Neut # (Auto) 38810 H (7746-6296) /uL Lymph # (Auto) 1600 (1853-2531) /uL [place] # (Auto) 400 (0-900) /uL Eos # (Auto) 0 (0-450) /uL Baso # (Auto) 0 (0-100) /uL PT 10.8 (9.4-12.5) SECONDS INR 1.0 (0.9-1.3) APTT 30 (25.1-36.5) SECONDS D-Dimer 343 (<500) ng/ml Sodium 139 (137-145) mmol/L Potassium 3.8 (3.4-5.1) mmol/L Chloride 106 (98-107) mmol/L Carbon Dioxide 24 (22-32) mmol/L BUN 16 (7-17) mg/dL Creatinine 0.60 (0.52-1.04) mg/dL Estimated GFR > 60 (>60) mL/min BUN/Creatinine Ratio 26.7 H (6-22) Glucose 120 H (70-99) mg/dL Lactate 1.8 (0.7-2.1) mmol/L Calcium 10.0 (8.4-10.2) mg/dL Magnesium 1.7 (1.6-2.3) mg/dL Total Bilirubin 0.7 (0.2-1.3) mg/dL AST 33 (14-36) IU/L ALT 31 (<35) IU/L Alkaline Phosphatase 93 (38-126) U/L Total Creatine Kinase 132 (30-135) U/L Troponin I < 0.012 (0.01-0.034) ng/mL NT-Pro-B Natriuret Pep 66 (<450) pg/mL Total Protein 7.4 (6.3-8.2) g/dL Albumin 4.7 (3.5-5.0) g/dL Globulin 2.7 (1.7-4.1) g/dL Albumin/Globulin Ratio 1.7 (1.0-2.8) Lipase 113 (23-300) U/L TSH 0.555 (0.47-4.68) uIU/mL [place] 0.4 L (0.6-1.2) mmol/L Imaging Data Chest x-ray: Radiologist's Impresson: [address] [address] XRay Report Signed Patient: Shayy Vaughn MR#: [id number] : 1950 Acct:[id number] Age/Sex: 74 / F Date of Service: 01/01/25 Loc: ED Accession Number: [id number] Procedure: XR chest 1V Ordering Provider: Denilson Cardona MD PROCEDURE: XR CHEST 1V INDICATIONS: Chest Pain TECHNIQUE: One view of the chest was acquired. COMPARISON: [facility], , XR CHEST 1V, 12/17/2021, 9:32. FINDINGS: Surgical changes and devices: None. Lungs and pleura: Lungs are clear. No pleural effusions or pneumothorax. Mediastinum: Mediastinal contours appear normal. Heart size is normal. Bones and chest wall: No suspicious bony lesions. Overlying soft tissues appear unremarkable. IMPRESSION: No acute cardiopulmonary process. Dictated by: Aminta Armenta M.D. on 01/01/2025 at 10:59 Approved by: Aminta Armenta M.D. on 01/01/2025 at 10:59 [facility] Narrative Medical decision making narrative: Patient here for palpitations. No chest pain shortness of breath. Heart rate noted on monitor is in sinus rhythm. Patient is on amlodipine 2.5 mg nightly, family doctor started her on this August 30, 2024. She does provide a blood pressure journal. It has been managed very well until recently in the past week. Her blood pressure has increased. Denies any syncope headache numbness tingling or weakness. No black or bloody stools. Denies any thyroid disease. Patient denies any changes in her medications otherwise. No recent illness. No prior history of arrhythmia. After history and exam, CBC CMP magnesium troponin TSH chest x-ray EKG D-dimer, lithium level [facility] Medical records reviewed: No recent visit for this complaint, CBC noted September 01 and October 04, leukocytosis, 15.9 and 12.7 Differential considered: Includes but not limited to STEMI non-STEMI hyperthyroidism pulmonary embolism arrhythmia AFib a flutter Lab Test results independently reviewed as above. Pertinent findings: WBC 13.8, however this is chronic. Patient has had leukocytosis for the last 3 visits, sodium 139 potassium 3.8 lactate 1.8 calcium 10.0 troponin less than 0.012 BNP 66 lipase 113 TSH 0.55 lithium 0.4 troponin less than 0.012 Independently reviewed EKG sinus tachycardia rate [address] elevation Imaging studies independently reviewed: Chest x-ray no acute finding Consultations: None indicated at this time Re-evaluations: 1:21 p.m.. Symptom free. Blood pressure 145/76, this is at her baseline she states. Heart rate 74. She is at baseline. Reviewed results with her. They are reassuring. Return precautions reviewed with her. She will need review with her family doctor regarding her medications and Holter monitor or Zio patch. She agrees with this. Discussion: Appropriate for discharge home. Symptoms improved with IV fluids and patient has additional 2.5 mg of amlodipine. Patient remains symptom-free here. Return precautions reviewed. Outpatient Holter monitor or Zio patch reviewed with her to go through her family doctor. She will take her amlodipine 2.5 mg twice a day. She will review this with her family doctor as well. She desires discharge home Diagnosis: Palpitation Discharge Plan Departure Patient Disposition: Home Clinical Impression: Palpitations, Sinus tachycardia Instructions: DI for Arrhythmias Activity Restrictions/Additional Instructions: Your exam and laboratory studies are reassuring. Please do take your amlodipine twice a day until you see your family doctor this week for re-evaluation. You may need to schedule outpatient Holter monitor or Zio patch with her family doctor. Return if worse if any questions or concerns. Keep well hydrated. Prescriptions: No Action gabapentin 300 mg capsule See Rx Instructions PO BEDTIME Qty: 60 3RF Rx Instructions: one or two capsules (300 to 600 mg orally bedtime; lithium carbonate 300 mg tablet 600 mg PO HS Qty: 180 3RF atorvastatin 40 mg tablet See Rx Instructions .ROUTE .COMPLEX Qty: 90 3RF Dose Instruction: TAKE 1 TABLET BY MOUTH AT BEDTIME Rx Instructions: TAKE 1 TABLET BY MOUTH AT BEDTIME amlodipine 2.5 mg tablet 2.5 mg PO BEDTIME Qty: 90 3RF Referrals: Angel Ugalde, [Primary Care Provider] - Stand Alone Forms: Patient Portal/API/Survey
--- NOTE | 2025-01-01 11:00 | PC.NURSE ---
Dr Cardona in room. Advised pt to take second dose of Amlodipine. Water brought to room for pt to take her own medication.
--- NOTE | 2025-01-01 11:10 | PC.NURSE ---
Pt sitting up in gurney. Speaking in full sentences. Appears in NAD. Denies pain at this time. Discussed plan of care, understands.
[2025-01-01 11:11] LABS: Add Manual Diff / Slide Review NO; Basophils Absolute Auto 0 /uL (0-100); Basophils Percent Auto 0.3 % (0-2); Eosinophils Absolute Auto 0 /uL (0-450); Eosinophils Percent Auto 0.2 % (2-4); Hematocrit 39.9 % (36-46); Hemoglobin 13.7 g/dL (12.0-16.0); Lymphocytes Absolute Auto 1600 /uL (1100-4500); Lymphocytes Percent Auto 11.3 % (25-40); Mean Corpuscular HGB Conc 34.2 % (30-36); Mean Corpuscular Hemoglobin 32.4 PG (26-34); Mean Corpuscular Volume 94.7 fL (80-100); Monocytes Absolute Auto 400 /uL (0-900); Monocytes Percent Auto 3.1 % (3-14); Neutrophils Absolute Auto 11700 /uL (1500-7000); Neutrophils Percent Auto 85.1 % (50-75); Platelet Count 367 X10^3/uL (150-400); Red Blood Cell Count 4.22 X10^6/uL (4.0-5.2); Red Cell Distribution Width 12.7 % (11.6-14.8); White Blood Cell Count 13.8 X10^3/uL (4.5-11.0)
[2025-01-01 11:14] LABS: Prothrombin Time 10.8 SECONDS (9.4-12.5)
[2025-01-01 11:17] LABS: PTT Partial Thromboplastin Tim 30 SECONDS (25.1-36.5)
[2025-01-01 11:19] LABS: Alanine Aminotransferase 31 IU/L (<35); Albumin 4.7 g/dL (3.5-5.0); Albumin Globulin Ratio 1.7 (1.0-2.8); Alkaline Phosphatase 93 U/L (38-126); Aspartate Aminotransferase 33 IU/L (14-36); BUN Creatinine Ratio 26.7 (6-22); Bilirubin Total 0.7 mg/dL (0.2-1.3); Blood Urea Nitrogen 16 mg/dL (7-17); Carbon Dioxide 24 mmol/L (22-32); Chloride 106 mmol/L (98-107); Creatine Kinase 132 U/L (30-135); Estimated Glomerular Filt Rate > 60 mL/min (>60); Globulin 2.7 g/dL (1.7-4.1); Glucose 120 mg/dL (70-99); HEMOLYSIS < 15 (0-50); Lactate (Lactic Acid) 1.8 mmol/L (0.7-2.1); Lipase 113 U/L (23-300); Magnesium 1.7 mg/dL (1.6-2.3); Potassium 3.8 mmol/L (3.4-5.1); Sodium 139 mmol/L (137-145); Total Protein 7.4 g/dL (6.3-8.2)
[2025-01-01 11:21] LABS: Lithium 0.4 mmol/L (0.6-1.2)
[2025-01-01 11:24] LABS: D Dimer 343 ng/ml (<500)
[2025-01-01] MEDS: SODIUM CHLORIDE 0.9% 1,000 ML 1000 ML IV (11:25)
[2025-01-01 11:31] LABS: NT-proBNP (BNP-Adult 18+) 66 pg/mL (<450); Troponin I < 0.012 ng/mL (0.01-0.034)
[2025-01-01 11:55] LABS: Thyroid Stimulating Hormone 0.555 uIU/mL (0.47-4.68)
== END 2025-01-01 13:35 | disposition home or self-care (01) ==
PROVIDERS: Emergency Provider Emergency Medicine; Family Provider Family Medicine; PCP Family Medicine
DX: R00.2 Palpitations (principal); R00.0 Tachycardia, unspecified; R07.9 Chest pain, unspecified
CPT/HCPCS: 36415; 71045; 80053; 80178; 82550; 83605; 83690; 83735; 83880; 84443; 84484; 85025; 85379; 85610; 85730; 93005; 93010; 96360; 99284

== ENCOUNTER 2025-01-30 17:54 | Emergency (ER) | payer OTHER, SELFPAY ==
[2025-01-30] VITALS (10 sets, daily range): BP systolic 119–159; BP diastolic 64–89; PULSE 75–94; RESP 14–35; TEMP 36.6; O2SAT 93–96; BMI 24.2
--- NOTE | 2025-01-30 18:09 | EKG_ITS ---
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
--- NOTE | 2025-01-30 18:09 | DI.RAD.S_ITS ---
PROCEDURE: XR CHEST 1V INDICATIONS: Chest Pain TECHNIQUE: One view of the chest was acquired. COMPARISON: [facility], CR, XR CHEST 1V, 01/01/2025, 10:34. [facility], CR, XR CHEST 1V, 12/17/2021, 9:32. FINDINGS: Surgical changes and devices: None. Lungs and pleura: Lungs are clear. No pleural effusions or pneumothorax. Mediastinum: Mediastinal contours appear normal. Heart size is normal. Bones and chest wall: No suspicious bony lesions. Overlying soft tissues appear unremarkable. IMPRESSION: No acute cardiopulmonary abnormality is seen. Dictated by: Rodriguez Magana M.D. on 01/30/2025 at 18:40 Approved by: Rodriguez Magana M.D. on 01/30/2025 at 18:40
--- NOTE | 2025-01-30 18:26 | ED_ITS ---
HPI - Chest Pain General Chief Complaint: Chest Pain Stated Complaint: Chest and arm pain x4days Time Seen by Provider: 01/30/25 18:25 Source: patient, RN notes reviewed and old records reviewed Mode of arrival: Ambulatory Limitations: no limitations History of Present Illness HPI narrative: 74-year-old female history of bipolar on lithium, hypertension, dyslipidemia, recurrent hives who presents with complaint of recurrent racing of her chest has had a ZIO patch which was removed today and mailed in but developed left-sided chest pain that radiates a little bit to her axilla and shoulder for the past 4 nights today started about 3:00. this afternoon and then went to her shoulder so she presented for evaluation. Patient states nothing seems to make it better or worse. Exertion does not bother movement does not bother it he just knows he rashes or skin changes. Denies any shortness of breath. She was has a little bit of chills but no fevers. She was felt fatigued since she was noticed the heart racing which started in August. She denies any cough cold or congestion symptoms. No nausea or vomiting. No diaphoresis. No abdominal back or flank pain. No new swelling of extremities. No issues with bowel movements or urination. She denies similar symptoms with chest discomfort in the past. States she had her amlodipine adjusted decreased recently, she was on amlodipine, losartan, atorvastatin, lithium at a stable dose for long period of time, Zyrtec, aspirin 81 mg daily and gabapentin. She states her bipolar has been controlled. History of hysterectomy and had splenectomy after horseback riding accident remotely. Reports allergies to multiple antibiotics. No tobacco, no alcohol no recreational drugs. States her dad of a brain aneurysm after having a cardiac stent placed around age 75, mother from colon cancer. She states no long distance travel no estrogen supplements. Doc primary care physician is Dr. Ugalde. Patient lives on [facility]. Related Data Previous Rx's ?Medication ?Instructions ?Recorded gabapentin 300 mg capsule See Rx Instructions PO BEDTI ME #60 12/19/23 caps lithium carbonate 300 mg tablet 600 mg (2 x 300 mg) PO HS #180 tabs 06/13/24 atorvastatin 40 mg tablet See Rx Instructions .Route 0 10/19/24 .COMPLEX #90 tabs amlodipine 5 mg tablet 5 mg PO BEDTIME #90 tabs losartan 25 mg tablet 25 mg PO DAILY #90 tabs 12/27 02/20 Allergies Allergy/AdvReac Type Severity Reaction Status Date / Time erythromycin base Allergy Severe anaphalaxic Verified 01/11/25 14:43 (ERYTHROMYCIN BASE) Penicillins (PENICILLINS) Allergy Severe anaphalatic Verified 01/11/25 14:43 latex Allergy Intermediate rash Verified 01/11/25 14:43 most antibiotics Allergy Unknown Uncoded 01/11/25 14:43 Review of Systems Review of Systems ROS Unobtainable: All systems reviewed & are unremarkable except as noted in HPI and below Patient History Medical History Neck pain Medicare annual wellness visit, subsequent Well adult exam Hypertension Chronic cough (~09/26/23) Hip pain, left Bronchitis History of colon polyps Encounter for Medicare annual wellness exam Migraine aura without headache Bipolar disorder, in full remission, most recent episode manic Bipolar depression GERD (gastroesophageal reflux disease) Hyperlipemia Bipolar disorder (1991) Chronic back pain (2013) Migraines (1989) Shoulder pain (2014) Rosacea (1989) Chickenpox (1951) Measles (1952) Mumps (1953) Herpes (1971) Fecal incontinence (2014) Peptic ulcer disease (2015) Surgical History History of carpal tunnel release (2009) Hx of hernia repair (1977) History of splenectomy (1974) Status post hysterectomy (2004) History of tonsillectomy (1967) Family History Father Bipolar affective disorder Stroke Mother Age: 101 Diverticular disease Grandfather Cancer Grandmother No problems noted. Grandfather Alcoholism Grandmother No problems noted. Sister Non Hodgkin's lymphoma Social History household members: none Smoking Status: Never smoker alcohol intake: current Smoking Status: Never smoker alcohol intake frequency: 0-2 drinks per day Exam Narrative Exam Narrative: GENERAL: Alert and oriented x three, female mild distress HEENT: Head normocephalic, atraumatic, EOMI, pupils reactive, face symmetric, moist mucous membranes NECK: Supple, full range of motion CARDIOVASCULAR: Regular rate and rhythm without murmurs, rubs or gallops. No reproducible chest pain. No skin changes. No JVD. No edema bilateral lower extremities. RESPIRATORY: Breath sounds equal bilaterally, no wheezes rales or rhonchi. No tachypnea or accessory muscle use. ABDOMEN: Soft, nontender. Normoactive bowel sounds all 4 quadrants. No guarding or rebound, rigidity, no mass : No CVA tenderness EXTREMITIES: Normal range of motion, no clubbing or edema. Neurovascularly intact NEUROLOGICAL: Cranial nerves II through XII grossly intact. Moving all extremities SKIN: Warm, dry, no petechiae, no rashes or lesions. Initial Vital Signs Initial Vital Signs: Vital Signs Temperature 98 F 01/30/25 18:03 Pulse Rate 94 H 01/30/25 18:03 Respiratory Rate 20 01/30/25 18:03 Blood Pressure 159/79 H 01/30/25 18:03 Pulse Oximetry 96 01/30/25 18:03 Oxygen Delivery Method Room Air 01/30/25 18:03 Course Orders Ordered: ED Orders 01/30/25 20:19 Trop I [Troponin I] Stat Discontinued Medications Aspirin (Aspirin 81 Mg Chew Tab) 324 mg PO NOW ONE Stop: 01/30/25 18:10 Last Admin: 01/30/25 18:54 Dose: 324 mg Documented By: Nitroglycerin (Nitroglycerin 0.4 Mg Sl Tab) 0.4 mg SL NOW ONE Stop: 01/30/25 18:41 Last Admin: 01/30/25 18:53 Dose: 0.4 mg Documented By: Vital Signs Vital signs: Vital Signs - 8 hr 01/30/25 19:30 01/30/25 19:30 01/30/25 20:00 Pulse Rate 79 Respiratory Rate 21 Blood Pressure 119/69 122/64 Pulse Oximetry 95 01/30/25 20:00 01/30/25 20:30 01/30/25 20:30 Pulse Rate 77 75 Respiratory Rate 28 H 14 Blood Pressure 125/66 Pulse Oximetry 96 95 01/30/25 21:00 01/30/25 21:00 Pulse Rate 79 Respiratory Rate 20 Blood Pressure 138/74 Pulse Oximetry 96 MDM - Chest Pain Lab Data 01/30/25 18:21 01/30/25 18:21 Labs: Lab Results 01/30/25 01/30/25 Range/Units 18:21 20:19 WBC 13.6 H (4.5-11.0) X10^3/uL RBC 4.18 (4.0-5.2) X10^6/uL Hgb 13.1 (12.0-16.0) g/dL Hct 39.6 (36-46) % MCV 94.6 (80-100) fL MCH 31.4 (26-34) PG MCHC 33.2 (30-36) % RDW 12.9 (11.6-14.8) % Plt Count 462 H (150-400) X10^3/uL Neut % (Auto) 73.8 (50-75) % Lymph % (Auto) 19.6 L (25-40) % [place] % (Auto) 5.1 (3-14) % Eos % (Auto) 0.7 L (2-4) % Baso % (Auto) 0.8 (0-2) % Neut # (Auto) 34849 H (5662-4031) /uL Lymph # (Auto) 2700 (7465-7686) /uL [place] # (Auto) 700 (0-900) /uL Eos # (Auto) 100 (0-450) /uL Baso # (Auto) 100 (0-100) /uL PT 11.0 (9.4-12.5) SECONDS INR 1.0 (0.9-1.3) APTT 37 H (25.1-36.5) SECONDS Sodium 138 (137-145) mmol/L Potassium 3.8 (3.4-5.1) mmol/L Chloride 106 (98-107) mmol/L Carbon Dioxide 25 (22-32) mmol/L BUN 13 (7-17) mg/dL Creatinine 0.72 (0.52-1.04) mg/dL Estimated GFR > 60 (>60) mL/min BUN/Creatinine Ratio 18.1 (6-22) Glucose 95 (70-99) mg/dL Calcium 9.8 (8.4-10.2) mg/dL Magnesium 1.9 (1.6-2.3) mg/dL Total Bilirubin 0.4 (0.2-1.3) mg/dL AST 25 (14-36) IU/L ALT 20 (<35) IU/L Alkaline Phosphatase 96 (38-126) U/L Total Creatine Kinase 63 (30-135) U/L Troponin I < 0.012 < 0.012 (0.01-0.034) ng/mL NT-Pro-B Natriuret Pep 41 (<450) pg/mL Total Protein 7.2 (6.3-8.2) g/dL Albumin 4.4 (3.5-5.0) g/dL Globulin 2.8 (1.7-4.1) g/dL Albumin/Globulin Ratio 1.6 (1.0-2.8) Lipase 139 (23-300) U/L [place] 0.5 L (0.6-1.2) mmol/L ECG Data Attestation: I personally reviewed and interpreted this ECG as follows: Prior ECG tracings: available for review Interpretation: Sinus rhythm rate of 90 UT 156 QRS is 76 QTC of 420, no acute ST elevation or depression. Patient was prior from 01/01/2025. No acute ST changes appears similar to today. MDM Narrative Medical decision making narrative: Sinus rhythm rate of 90 UT 156 QRS is 76 QTC of 420, no acute ST elevation or depression.? Patient was prior from 01/01/2025.? No acute ST changes appears similar to today. Labs white count of 13.6 appears similar to priors, hemoglobin of 13 platelets of 462. INR is 1 PTT is 37, electrolytes BUN creatinine are all normal, LFTs are negative, troponins less than 0.012 with a repeat troponin of less than 0.012 and a BNP of 41. Lipase is 139. [place] level is 0.5. Chest x-ray shows no acute change Patient had aspirin and nitro sublingual. Patient had minimal change. 74-year-old female complaint of chest pain 5/10 started 5 days ago radiation to arm and back, patient was seen for palpitations in December of 2024, patient has noted significant palpitations while wearing her ZIO patch. No arrhythmias were noted today. Cardiac workup does not show any clear change patient did have a dimer on 01/01/2025 which at that time was negative based on patient's history and evaluation and vital signs today did not feel it needed to be repeated. Discussed with the patient. She would like to return home we did talk about stress test. She will follow up with primary care as well as Cardiology she has not appointment in place in February but asked that she reach out sooner. She was to continue an aspirin 81 mg daily/ Discharge Plan Departure Patient Disposition: Home Clinical Impression: Chest pain Instructions: DI for Chest Pain Activity Restrictions/Additional Instructions: Follow up with primary care for recheck, talk with your physician about stress testing. I would also have you reach out to cardiology tomorrow to follow up . Your workup today does not show a clear source of your symptoms. Please talk with your physician about further workup, also follow up with your ZIO patch. If you have new or worsening changes, new chest pain, new shortness of breath, lightheadedness or passing out, new swelling of your extremities, diaphoresis or sweatiness, nausea or vomiting or other new or concerning changes return to the emergency department. Prescriptions: No Action gabapentin 300 mg capsule See Rx Instructions PO BEDTIME Qty: 60 3RF Rx Instructions: one or two capsules (300 to 600 mg orally bedtime; lithium carbonate 300 mg tablet 600 mg PO HS Qty: 180 3RF atorvastatin 40 mg tablet See Rx Instructions .ROUTE .COMPLEX Qty: 90 3RF Dose Instruction: TAKE 1 TABLET BY MOUTH AT BEDTIME Rx Instructions: TAKE 1 TABLET BY MOUTH AT BEDTIME amlodipine 5 mg tablet 5 mg PO BEDTIME Qty: 90 3RF losartan 25 mg tablet 25 mg PO DAILY Qty: 90 3RF Referrals: Prakash Bobby MD [Physician, Cardiology] Angel Ugalde DO [Primary Care Provider, Family Practice] Stand Alone Forms: Patient Portal/API
[2025-01-30 18:29] LABS: Add Manual Diff / Slide Review NO; Basophils Absolute Auto 100 /uL (0-100); Basophils Percent Auto 0.8 % (0-2); Eosinophils Absolute Auto 100 /uL (0-450); Eosinophils Percent Auto 0.7 % (2-4); Hematocrit 39.6 % (36-46); Hemoglobin 13.1 g/dL (12.0-16.0); Lymphocytes Absolute Auto 2700 /uL (1100-4500); Lymphocytes Percent Auto 19.6 % (25-40); Mean Corpuscular HGB Conc 33.2 % (30-36); Mean Corpuscular Hemoglobin 31.4 PG (26-34); Mean Corpuscular Volume 94.6 fL (80-100); Monocytes Absolute Auto 700 /uL (0-900); Monocytes Percent Auto 5.1 % (3-14); Neutrophils Absolute Auto 10000 /uL (1500-7000); Neutrophils Percent Auto 73.8 % (50-75); Platelet Count 462 X10^3/uL (150-400); Red Blood Cell Count 4.18 X10^6/uL (4.0-5.2); Red Cell Distribution Width 12.9 % (11.6-14.8); White Blood Cell Count 13.6 X10^3/uL (4.5-11.0)
[2025-01-30 18:40] LABS: PTT Partial Thromboplastin Tim 37 SECONDS (25.1-36.5)
[2025-01-30 18:52] LABS: Alanine Aminotransferase 20 IU/L (<35); Albumin 4.4 g/dL (3.5-5.0); Albumin Globulin Ratio 1.6 (1.0-2.8); Alkaline Phosphatase 96 U/L (38-126); Aspartate Aminotransferase 25 IU/L (14-36); BUN Creatinine Ratio 18.1 (6-22); Bilirubin Total 0.4 mg/dL (0.2-1.3); Blood Urea Nitrogen 13 mg/dL (7-17); Calcium 9.8 mg/dL (8.4-10.2); Carbon Dioxide 25 mmol/L (22-32); Chloride 106 mmol/L (98-107); Creatine Kinase 63 U/L (30-135); Estimated Glomerular Filt Rate > 60 mL/min (>60); Globulin 2.8 g/dL (1.7-4.1); Glucose 95 mg/dL (70-99); HEMOLYSIS < 15 (0-50); Lipase 139 U/L (23-300); Magnesium 1.9 mg/dL (1.6-2.3); Potassium 3.8 mmol/L (3.4-5.1); Sodium 138 mmol/L (137-145); Total Protein 7.2 g/dL (6.3-8.2)
[2025-01-30 18:53] LABS: Lithium 0.5 mmol/L (0.6-1.2)
[2025-01-30] MEDS: NITROGLYCERIN 0.4 MG SL TAB SL (18:53)
[2025-01-30] MEDS: ASPIRIN 81 MG CHEW TAB 324 MG PO (18:54)
[2025-01-30 19:04] LABS: NT-proBNP (BNP-Adult 18+) 41 pg/mL (<450); Troponin I < 0.012 ng/mL (0.01-0.034)
[2025-01-30 20:47] LABS: Troponin I < 0.012 ng/mL (0.01-0.034)
== END 2025-01-30 21:20 | disposition home or self-care (01) ==
PROVIDERS: Emergency Provider Emergency Medicine; Family Provider Family Medicine; PCP Family Medicine
DX: R07.9 Chest pain, unspecified (principal)
CPT/HCPCS: 36415; 71045; 80053; 80178; 82550; 83690; 83735; 83880; 84484; 85025; 85610; 85730; 93005; 99283; 99284

== ENCOUNTER → 2025-02-14 11:28 | Outpatient (CLI) | payer OTHER, SELFPAY ==
[2025-02-14 11:48] LABS: Add Manual Diff / Slide Review NO; Basophils Absolute Auto 100 /uL (0-100); Basophils Percent Auto 0.4 % (0-2); Eosinophils Absolute Auto 100 /uL (0-450); Eosinophils Percent Auto 0.5 % (2-4); Hematocrit 39.1 % (36-46); Hemoglobin 13.1 g/dL (12.0-16.0); Lymphocytes Absolute Auto 2200 /uL (1100-4500); Mean Corpuscular HGB Conc 33.6 % (30-36); Mean Corpuscular Hemoglobin 31.6 PG (26-34); Mean Corpuscular Volume 94.1 fL (80-100); Monocytes Absolute Auto 600 /uL (0-900); Neutrophils Absolute Auto 10900 /uL (1500-7000); Neutrophils Percent Auto 79.1 % (50-75); Platelet Count 354 X10^3/uL (150-400); Red Blood Cell Count 4.16 X10^6/uL (4.0-5.2); White Blood Cell Count 13.7 X10^3/uL (4.5-11.0)
[2025-02-14 12:08] LABS: Alanine Aminotransferase 24 IU/L (<35); Albumin 4.6 g/dL (3.5-5.0); Albumin Globulin Ratio 1.8 (1.0-2.8); Alkaline Phosphatase 114 U/L (38-126); Aspartate Aminotransferase 25 IU/L (14-36); BUN Creatinine Ratio 20.6 (6-22); Bilirubin Total 0.8 mg/dL (0.2-1.3); Blood Urea Nitrogen 13 mg/dL (7-17); Calcium 9.9 mg/dL (8.4-10.2); Carbon Dioxide 24 mmol/L (22-32); Chloride 106 mmol/L (98-107); Cholesterol 201 mg/dL (140-199); Estimated Glomerular Filt Rate > 60 mL/min (>60); Globulin 2.6 g/dL (1.7-4.1); Glucose 101 mg/dL (70-99); HDL Cholesterol 50 mg/dL (40-60); HEMOLYSIS < 15 (0-50); LDL Cholesterol Calculated 113 mg/dL (<100); Potassium 3.9 mmol/L (3.4-5.1); Sodium 138 mmol/L (137-145); Total Protein 7.2 g/dL (6.3-8.2); Triglycerides 191 mg/dL (35-150)
[2025-02-14 12:10] LABS: Lithium 0.5 mmol/L (0.6-1.2)
[2025-02-14 12:49] LABS: TSH w/ Reflex to FT4 0.48 uIU/mL (0.47-4.68)
== END ==
PROVIDERS: Family Provider Family Medicine; PCP Family Medicine; Referring Provider Family Medicine; Visit Provider Family Medicine
DX: I10 Essential (primary) hypertension (principal); E78.5 Hyperlipidemia, unspecified; F31.32 Bipolar disorder, current episode depressed, moderate; I49.3 Ventricular premature depolarization
CPT/HCPCS: 36415; 80053; 80061; 80178; 84443; 85025

== ENCOUNTER → 2025-04-03 10:46 | Outpatient (CLI) | payer OTHER, SELFPAY ==
--- NOTE | 2025-04-03 10:50 | DI.US.S_ITS ---
MM diagnostic mammo BI, US breast RT limited: 04/03/2025 BI-RADS: 2 CLINICAL: 74-year old female for bilateral diagnostic mammogram and right diagnostic breast ultrasound. Tyrer-Cuzick lifetime risk of 8.1%. Current reported family history of breast cancer: sister. PRIOR EXAMS 10/27/2023, 10/07/2023, 08/10/2022, 06/27/2021, 06/26/2015. MAMMOGRAPHY TECHNIQUE: 2D and 3D (tomosynthesis) digital mammographic views obtained, with additional images as needed for full coverage. Current study was also evaluated with a Computer Aided Detection (CAD) system. ULTRASOUND TECHNIQUE TARGETED Right Breast Ultrasound: Real-time ultrasound exam was performed focused to area of clinical and/or imaging concern. Real-time puckett scale and color doppler imaging of the area of clinical interest was performed with image documentation. DENSITY C. The breasts are heterogeneously dense, which may obscure small masses. MAMMOGRAPHY FINDINGS Right (finding-1): Upper Outer Quadrant, Middle depth, measuring 3cm: There is a circumscribed, oval, equal-density mass present. This mass is stable dating back to at least 06/26/2015 and contains fat and fibroglandular tissue compatible with a benign hamartoma. Right: Central, Middle depth: The previously seen focal asymmetry on screening mammogram 10/07/2023 is no longer visualized. Left: No suspicious mass, asymmetry, microcalcification, or other abnormality seen. ULTRASOUND FINDINGS Right (finding-1): Upper Outer at 11:00, 8 cm from nipple, measuring 2.9 x 1 x 2.3 cm: Correlating with findings on mammogram there is an oval, circumscribed, heterogeneous mass. Doppler shows no vascularity. A portion of this mass was measured and described as complicated cyst on the prior exam. IMPRESSION: Right * No evidence of malignancy with benign findings. Left * No evidence of malignancy. RECOMMENDATIONS Bilateral * Annual screening mammography. COMMENTS: Findings and recommendations were conveyed to the patient during today's evaluation. OVERALL ASSESSMENT CATEGORY BI-RADS-2: Benign. The [employer] recommends annual screening mammography beginning at age 40 for women with average risk of breast cancer. ELECTRONICALLY SIGNED: Prachi Rios M.D. on 04/03/2025 at 01:34:59 PM PT Interpreting Station ID: [id number]
--- NOTE | 2025-04-03 10:50 | DI.RAD.S_ITS ---
PROCEDURE: XR DEXA AXIAL SKELETON INDICATIONS: routine screening COMPARISON: [facility], CR, XR DEXA AXIAL SKELETON, 06/12/2019, 14:20. FINDINGS: Lumbar Spine: Bone mineral density 1.184 (previously 1.468) g/cm2, T score 1.2 (previously 2.2). Left Femoral Neck: Bone mineral density 0.643 (previously 0.874) g/cm2, T score -1.9 (previously-1.2). Left Hip: Bone mineral density 0.834 (previously 0.989) g/cm2, T score -0.9 (previously-0.2). Fracture Risk Calculation (when applicable): 10-year fracture risk of a major osteoporotic fracture 13 percent and of a hip fracture 3.1 percent. IMPRESSION: Osteopenia Follow-up guidelines as follows: Osteoporosis: Consider a repeat DEXA and Vertebral Fracture Assessment (VFA) exam in 2 years or sooner if medically necessary, to reassess this patient's status. Osteopenia: Consider a repeat DEXA in 2-3 years to reassess this patient's status, or if there is a new clinical indication. Normal: Consider a repeat DEXA in 5 years or sooner, or if there is a new clinical indication. All treatment decisions require clinical judgment and consideration of individual patient factors, including patient preferences, comorbidities, previous drug use, risk factors not captured in the FRAX model (e.g., frailty, falls, vitamin D deficiency, increased bone turnover, interval significant decline in bone density ) and possible under- or over-estimation of fracture risk by FRAX. In addition, the NOF Guide recommends that FDA-approved medical therapies be considered in postmenopausal women and men age >= 50 years with a: * Hip or vertebral (clinical or morphometric) fracture * T-score of <=-2.5 at the spine or hip * Ten-year fracture probability by FRAX of >= 3% for hip fracture or >=20% for major osteoporotic fracture. Dictated by: Nguyễn Rossi M.D. on 04/04/2025 at 8:42 Approved by: Nguyễn Rossi M.D. on 04/04/2025 at 8:44
== END ==
LOC: RAD 10:47
PROVIDERS: Family Provider Family Medicine; PCP Family Medicine; Referring Provider Family Medicine; Visit Provider Family Medicine
DX: M85.89 Other specified disorders of bone density and structure, multiple sites (principal); R92.8 Other abnormal and inconclusive findings on diagnostic imaging of breast; R92.333 Mammographic heterogeneous density, bilateral breasts; N63.11 Unspecified lump in the right breast, upper outer quadrant
CPT/HCPCS: 76642; 77066; 77080; G0279

== ENCOUNTER → 2025-04-04 14:25 | Outpatient (CLI) | payer OTHER, SELFPAY ==
--- NOTE | 2025-04-04 14:26 | DI.ECHO.S_ITS ---
[facility]---------+ [facility] : : [id number] : [place] : : [id number] : : Phone: [phone] Echocardiogram Report + + :Name: CODY JOHNSON Study Date: 04/04/2025 Height: 65 in : :Hospital ReadingLocation: Weight: 140 lb : : Gender: Female BSA: 1.7 m2 : :: 1950 Age: 74 yrs BP: 140/77 mmHg: :Reason For Study: PAROXYSMAL SUPRAVENTRICULAR TACHYCARDIA : :Ordering Physician: TALIA, : :PRAKASH Performed By: John Perez : :Referring: PRAKASH BOBBY : + + Interpretation Summary The left ventricle is normal in size. The ejection fraction is estimated to be 60-65%. There are no focal wall motion abnormalities. Grade II diastolic dysfunction with elevated left atrial pressure. The right ventricular systolic pressure is estimated to be at least 42 mmHg based on an estimated right atrial pressure of 8 mm Hg. The left atrium is mildly dilated. There is no significant valvular heart disease. The aortic root is normal size. Procedure: A two-dimensional transthoracic echocardiogram with color flow and Doppler was performed. The study quality was technically good. Comparison is made with the echocardiogram of 10/03/2023. The patient was in normal sinus rhythm during the exam. Left Ventricle: The left ventricle is normal in size. There is normal left ventricular wall thickness. There is no ventricular septal defect visualized. The ejection fraction is estimated to be 60-65%. There are no focal wall motion abnormalities. Grade II diastolic dysfunction with elevated left atrial pressure. Right Ventricle: The right ventricle is normal in size and function. Atria: The left atrium is mildly dilated. Right atrial size is normal. There is no Doppler evidence for an interatrial shunt. Mitral Valve: The mitral valve leaflets appear normal. There is no evidence of stenosis, fluttering, or prolapse. There is trace mitral regurgitation. Aortic Valve: The aortic valve is trileaflet. The aortic valve opens well. No aortic regurgitation is present. Tricuspid Valve: The tricuspid valve leaflets are thin and pliable. There is mild tricuspid regurgitation. The right ventricular systolic pressure is estimated to be at least 42 mmHg based on an estimated right atrial pressure of 8 mm Hg. Pulmonic Valve: The pulmonic valve leaflets are thin and pliable; valve motion is normal. There is trace pulmonic regurgitation. There is no significant valvular heart disease. Great Vessels: The aortic root is normal size. The dimensions of the ascending aorta are normal. The pulmonary artery is normal size. The IVC is dilated (diameter is greater than 2.1 cm) yet it collapses greater than 50% with a sniff. This suggests a right atrial pressure of 8 mm Hg. Pericardium/ Pleura There is no pericardial effusion. There is no pleural effusion. MMode/2D Measurements & Calculations LVIDd: 4.5 cm LVOT diam: 1.9 cm LVIDs: 3.4 cm Ao root diam: 3.0 cm FS: 25.9 % asc Aorta Diam: 3.0 cm EPSS: 0.49 cm IVSd: 0.89 cm LVPWd: 0.80 cm LV gusman. diameter/BSA (cm/m^2): 2.7 LV sys. diameter/BSA (cm/m^2): 2.0 LA A2 area: 21.7 cm2 RA long axis: 5.5 cm LA A4 area: 19.8 cm2 RA area: 17.5 cm2 LA length (vol): 5.6 cm RA vol: 47.7 ml LA vol: 64.7 ml RA : 28.0 ml/m2 LA vol index: 38.0 ml/m2 IVC diam: 2.1 cm RVD1 (basal): 3.8 cm RVD2 (mid): 3.3 cm TAPSE: 2.7 cm Doppler Measurements & Calculations Ao V2 max: 136.0 cm/sec LVOT Max Collin: 120.7 cm/sec Ao V2 mean: 95.4 cm/sec LV V1 max P.8 mmHg Ao max P.4 mmHg LV V1 VTI: 25.0 cm Ao mean P.1 mmHg DANA(I,D): 2.5 cm2 Ao V2 VTI: 29.1 cm DANA(V,D): 2.5 cm2 sev ratio: 0.86 DANA indexed to BSA (cm^2/m^2): 1.4 MV E max collin: 59.5 cm/sec TR max collin: 291.6 cm/sec MV A max collin: 56.7 cm/sec TR max P.0 mmHg MV E/A: 1.1 PA V2 max: 115.2 cm/sec MV dec time: 0.20 sec PA V2 mean: 80.2 cm/sec PA mean P.9 mmHg PA pr(Accel): 61.9 mmHg SV(LVOT): 71.3 ml Reading Physician:05:02 PM
== END ==
LOC: ECHO 14:25
PROVIDERS: Family Provider Family Medicine; PCP Family Medicine; Referring Provider Internal Medicine Cardiovascular Disease; Visit Provider Internal Medicine Cardiovascular Disease
DX: I47.10 Supraventricular tachycardia, unspecified (principal); I07.1 Rheumatic tricuspid insufficiency
CPT/HCPCS: 93306

== ENCOUNTER → 2025-05-24 09:42 | Outpatient (CLI) | payer OTHER, SELFPAY ==
[2025-05-24 10:45] LABS: Add Manual Diff / Slide Review NO; Hematocrit 40.3 % (36-46); Hemoglobin 13.7 g/dL (12.0-16.0); Lymphocytes Absolute Auto 1800 /uL (1100-4500); Mean Corpuscular HGB Conc 34.0 % (30-36); Mean Corpuscular Hemoglobin 32.4 PG (26-34); Mean Corpuscular Volume 95.5 fL (80-100); Platelet Count 361 X10^3/uL (150-400)
== END ==
PROVIDERS: Family Provider Family Medicine; PCP Family Medicine; Referring Provider Family Medicine; Visit Provider Family Medicine
DX: K52.9 Noninfective gastroenteritis and colitis, unspecified (principal)
CPT/HCPCS: 36415; 85025

== ENCOUNTER → 2025-05-28 08:33 | Outpatient (CLI) | payer OTHER, SELFPAY | PROVIDERS: Family Provider Family Medicine; PCP Family Medicine; Referring Provider Family Medicine; Visit Provider Family Medicine | DX: K52.9 Noninfective gastroenteritis and colitis, unspecified (principal) | CPT/HCPCS: 87177 ==

== ENCOUNTER → 2025-07-10 12:42 | Outpatient (CLI) | payer OTHER, SELFPAY ==
--- NOTE | 2025-07-10 12:44 | DI.RAD.S_ITS ---
PROCEDURE: XR KNEE LT 3V
== END ==
LOC: RAD 12:43
PROVIDERS: Family Provider Family Medicine; PCP Family Medicine; Referring Provider Nurse Practitioner Family; Visit Provider Nurse Practitioner Family
DX: M25.562 Pain in left knee (principal)
CPT/HCPCS: 73562

== ENCOUNTER → 2025-07-20 08:44 | Outpatient (CLI) | payer OTHER, SELFPAY | PROVIDERS: Family Provider Family Medicine; PCP Family Medicine; Visit Provider Nurse Practitioner Family | DX: L08.9 Local infection of the skin and subcutaneous tissue, unspecified (principal) | CPT/HCPCS: 87070; 87075; 87205 ==